=== PATIENT | female | born 1945 | race Caucasian/White ===

== ENCOUNTER 2020-04-14 08:57 | Inpatient (IN) | payer OTHER ==
[2020-04-14] MEDS ORDERED: MEPERIDINE HCL 50 MG/ML ONE (09:24)
[2020-04-14] MEDS ORDERED: COLCHICINE 0.6 MG TAB ONE (09:24)
[2020-04-14] MEDS ORDERED: ONDANSETRON 4 MG/2 ML VIAL ONE (09:25)
--- OUTSIDE RECORDS SUMMARY | 2020-04-14 09:50 | XMS REPORT | Continuity of Care Document ---
:[address] [facility] t Address [address] [place] [address] Care Team Providers Name Role Phone Yonas Vincent MD Attending Clinician Problems This patient has no known problems. Allergies, Adverse Reactions, Alerts This patient has no known allergies or adverse reactions. Medications This patient has no known medications. Procedures This patient has no known procedures. Encounters Start End Encounter Admission Attending Care Care Encounter Source Date/Time Date/Time Type Type Clinicians Facility Department ID 2020-04-06 2020-04-06 Telephone CONNIE Vincent [id number] 00:00:00 00:00:00 Oumou Branham [facility] [id number] IAJAN[facility] [id number] [place] [id number] [facility] Results This patient has no known results.
--- OUTSIDE RECORDS SUMMARY | 2020-04-14 09:52 | XMS REPORT | Summary of Care ---
:1945 Author Organization [facility] - Health Address [address] [place] [id number] Care Team Providers Name Role Phone John Tapia MD Primary Care Provider [phone] Reason for Visit Reason Comments Transition Of Care Encounter Details Date Type Department Care Team Description 04/05/[address] [facility] [address] [address] Allergies Active Allergy Reactions Severity Noted Date Comments Codeine Nausea and/or Vomiting 03/27/2020 documented as of this encounter (statuses as of 04/05/2020) Medications Medication Sig Dispensed Refills Start Date End Date Status fluticasone Inhale 1 Puff as 0 A ctive propion/salmeterol needed. As needed (ADVAIR DISKUS INHALE) for asthma/bronchitis ALBUTEROL INHALE Inhale 1 Puff. As 0 Active needed for asthma/bronchitis pantoprazole 40 mg EC Take 1 tablet by 30 tablet 1 04/02/2020 Active tabletIndications: mouth daily. Anemia, unspecified type sennosides 8.6 mg Take 1 tablet by 30 tablet 1 04/02/2020 Active tabletIndications: mouth daily. Anemia, unspecified type ferrous sulfate (IRON) Take 1 capsule by 60 capsule 1 04/02/20 20 Active 325 mg (65 mg iron) SR mouth every other capsuleIndications: day. Anemia, unspecified type documented as of this encounter (statuses as of 04/05/2020) Active Problems Problem Noted Date GIB (gastrointestinal bleeding) 03/28/2020 Gastrointestinal hemorrhage, unspecified gastrointesti nal hemorrhage type 03/27/2020 Overview: Added automatically from request for marnie akins [id number] documented as of this encounter (statuses as of 04/05/2020) Social History Tobacco Use Types Packs/Day Years Used Date Current Every Day Smoker 0.25 50 Alcohol Use Drinks/Week oz/Week Comments Not Asked socially Sex Assigned at Date Recorded Not on file COVID-19 Exposure Response Date Recorded In the last month, have you been in contact with No / Unsure 03/27/2020 11:17 PM CDT someone who was confirmed or suspected to have Coronavirus / COVID-19? documented as of this encounter Last Filed Vital Signs Not on filedocumented in this encounter Miscellaneous Notes Telephone Encounter - Dk Noble RN - 04/05/2020 2:29 PM [facility] needs progress notes. Progress notes faxed to [facility] as requested. elephone Encounter - Dk Noble RN - 04/05/2020 2:08 PM CDT Called [facility]. Referral for HH declined due to they do not accept patient insurance[facility] Referral faxed to [facility]. elephone Encounter - Dk Noble RN - 04/05/2020 9:13 AM CDT TRANSITIONAL CARE MANAGEMENT ASSESSMENT 04/05/2020 Kendal Singh [id number] Kendal Singh is a 74 year old /White female was admitted on 03/27/[address] She was discharged on 04/02/20 with discharge disposition of HR- Routine Discharge. 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 Advised to contact PCP.) Discharge Instructions Do you understand your at-home instructions?: Yes(No questions at this time.) Medications Have you filled your prescriptions and do you have them in your home? : Yes Do you know how to take your medications?: Yes(No questions.) Can you provide me with the names or descriptions of any sjbl-mca-oulaasa or supplements you are currently taking?: Patient declined Supplies Did you receive applicable home medical supplies/equipment?: N/A Follow Up Appointment Has a follow up appointment been scheduled?: No May I assist with scheduling this appointment?: Patient has outside PCP(Pt states she will call to schedule.) Do you have any questions about your follow up appointments?: No Are you able to get to your appointment? Who will be taking you?: Yes(Family member or friend) Home Health Assistance Has the home health nurse contacted you since you've been home?: No [employer] Interventions:: Contacted HH agency(Referral never received. Resent referral.) Survey - Recognition Is there anything you would like to share about your recent hospitalization, or anyone you would like to recognize?: No Do you have any suggestions for improvement?: No Do you have any other questions or concerns at this time?: No Future Appointments: Pending. COVID-19 It is noted in the discharge summary that you were tested for COVID 19. Did your physician discuss the results of this test with you? Yes Do you have any questions about your test results? No What instructions did you receive from your physician? Prevention Do you have any questions about your discharge instructions related to COVID 19? No Should you have any other questions or concerns, you may call the [facility] at [phone] or toll free [phone] for further guidance. documented in this encounter Plan of Treatment Health Maintenance Due Date Last Done Comments HEPATITIS C (HCV) SCREEN 1945 DTaP,Tdap,and Td Vaccines (1 - Tdap) 1964 Breast Cancer Screening (MAMMOGRAM) 1985 COLON CANCER SCREENING ANNUAL FIT/FOBT 1995 COLON CANCER SCREENING FIT DNA EVERY 3 YEARS 1995 COLON CANCER SCREENING SIGMOIDOSCOPY EVERY 5 YEARS 1995 Zoster Recombinant Vaccine (SHINGRIX) (1 of 2) 1995 LUNG CANCER SCREEN: Recommended for age 55-80 with 30 2000 + pack year history Medicare Wellness Visit 2010 Osteoporosis Screening 2010 PNEUMOCOCCAL VACCINES 65+ (1 of 1 - PPSV23) 2010 INFLUENZA VACCINE (#1) 2020 Depression Screening 03/30/2021 03/30/2020 COLONOSCOPY 03/30/2030 03/30/2020 Colorectal Cancer Screening 03/30/2030 documented as of this encounter Results Not on filedocumented in this encounter Insurance Payer Benefit Plan Subscriber ID Effective Phone Address Typ e / Group Dates ILIA MORILLO [id number] 2014-Pr [phone] [employer] re Adv PLUS/SELECTCA PLUS/SELECTCA esent [phone] [place] [address] [facility] [id number] 2020-Pres Medica re Adv [place] PL[place] PL[place] ent HMO/POS CHOICE documented as of this encounter
--- OUTSIDE RECORDS SUMMARY | 2020-04-14 09:52 | XMS REPORT | Summary of Care ---
:1945 Author Organization [facility] Address [address] [place] [id number] Care Team Providers Name Role Phone Pcp, Patient Does Not Have A Primary Care Provider +[id number] 0-0000 Dennise Osorio MD Primary Care Provider Reason for Referral (Routine) Status Reason Specialty Diagnoses / Referred By Referred To Procedures Contact Contact New Request IM-HEMATOLOGY & Diagnoses Anemia, unspecified type Oumou Vincent ONCOLOGY Procedures Discharge Follow-Up: Specialty Service IM-HEMATOLOGY & ONCOLOGY; 1 Week MD Yonas [address] [place] [address] (Routine) Status Reason Specialty Diagnoses / Referred By Referred To Procedures Contact Contact New Request IM-GASTROENTEROLO Diagnoses Anemia, unspecified type Oumou Vincent GY Procedures Discharge Follow-Up: Specialty Service IM-GASTROENTEROLOGY; 2 Weeks MD oYnas [address] [place] [address] (Routine) Status Reason Specialty Diagnoses / Referred By Referred To Procedures Contact Contact New Request Diagnoses Anemia, unspecified type Oumou Vincent E, Reg[place], Procedures Discharge Follow-up: PCP JOHN OSORIO; 3-5 Days MD John Bowden MD [id number] [place], [place] [id number] Phone: Fax: Radiology Services (STAT) Status Reason Specialty Diagnoses / Referred By Referred To Procedures Contact Contact New Request Diagnostic Diagnoses SOB (shortness of breath) Rosa Sal Simmons, Radiology Procedures Chest 1 View [address] [place] [address] Reason for Visit Reason Comments TIRED Anxiety Auth/Cert Status Reason Specialty Diagnoses / Referred By Referred To Procedures Contact Contact Emergency Medicine Diagnoses TIRED/WEAKNESS [facility] Emergency Dept [address] [place] [address] Fax: Encounter Details Date Type Department Care Team Description 03/27/2020 - Hospital Acute Care for Sal LeePeña [address] [place] [address] Gastrointestinal 04/02/2020 Encounter the Elderly (Oumou Jenkins MD [address] [facility] [id number] [place], [place] [id number] hemorrhage, unspecified 11D) Sloane Frausto MD [address] [place] [address] [phone] gastrointestinal [address] [place] hemorrhage type [place], [place] [id number] Allergies Active Allergy Reactions Severity Noted Date Comments Codeine Nausea and/or Vomiting 03/27/2020 documented as of this encounter (statuses as of 04/02/2020) Medications Medication Sig Dispensed Refills Start Date End Date Status fluticasone Inhale 1 Puff 0 Acti ve propion/salmeterol as needed. As (ADVAIR DISKUS needed for INHALE) asthma/bronch itis ALBUTEROL INHALE Inhale 1 0 Act lois Puff. As needed for asthma/bronch itis pantoprazole 40 mg Take 1 tablet 30 tablet 1 04/02/2020 Active EC by mouth tabletIndications: daily. Anemia, unspecified type sennosides 8.6 mg Take 1 tablet 30 tablet 1 04/02/2020 Active tabletIndications: by mouth Anemia, unspecified daily. type ferrous sulfate Take 1 60 capsule 1 04/02/2020 Ac tive (IRON) 325 mg (65 capsule by mg iron) SR mouth every capsuleIndications: other day. Anemia, unspecified type diclofenac TAKE 1 TABLET 60 tablet 0 12/14/2015 04/02/2020 Dis continued (VOLTAREN) 75 mg EC BY MOUTH tablet TWICE A DAY losartan 100 mg Take 100 mg 0 04/02/2020 D iscontinued tablet by mouth daily. aspirin 81 mg Take 81 mg by 0 04/02/2020 D iscontinued chewable tablet mouth daily. documented as of this encounter (statuses as of 04/02/2020) Active Problems Problem Noted Date GIB (gastrointestinal bleeding) 03/28/2020 Gastrointestinal hemorrhage, unspecified gastrointesti nal hemorrhage type 03/27/2020 Overview: Added automatically from request for marnie kains [id number] documented as of this encounter (statuses as of 04/02/2020) Social History Tobacco Use Types Packs/Day Years [...] of this encounter Last Filed Vital Signs Vital Sign Reading Time Taken Comments Blood Pressure 163/79 04/02/2020 11:59 AM CDT Pulse 91 04/02/2020 11:59 AM CDT Temperature 36.5 C (97.7 F) 04/02/2020 11:59 AM CDT Respiratory Rate 18 04/02/2020 11:59 AM CDT Oxygen Saturation 97% 04/02/2020 11:59 AM CDT Inhaled Oxygen Concentration - - Weight 91 kg (200 lb 9.6 oz) 03/30/2020 5:00 AM CDT Height 162.6 cm (5' 4") 03/28/2020 4:40 AM CDT Body Mass Index 34.43 03/28/2020 4:40 AM CDT documented in this encounter Discharge Summaries Eusebio Nair MD - 04/02/2020 1:21 PM CDT SHA Team Discharge Summary Date of Service: 04/02/2020 ADMIT DATE: 03/27/2020 DISCHARGE DATE: 04/02/2020 ATTENDING MD: Dr. Oumou Vincent RESIDENT MD: Eusebio Nair PCP: Dr. John Osorio REASON FOR ADMISSION Symptomatic anemia FINAL DIAGNOSIS: (the reason, after study, for admitting the patient to the hospital) Acute on ChronicAnemia;Hx ofiron deficiency anemia and NSAID abuse SECONDARY DIAGNOSIS: (any diagnosis that, on this admission, required clinical evaluation, therapeutic treatment, diagnostic procedures, extended hospital stay, or additional nursing care/monitoring) OA ESTEBAN vs CKD; improved Diverticuloses Internal Hemorrhoids Thrombocytopenia H/o HTN Asthma CONSULTING SERVICES: Orders Placed This Encounter CONSULT GASTROENTEROLOGY Consult Adult Physical Therapy Consult Adult Occupational Therapy Discharge Follow-up: PCP JOHN OSORIO; 3-5 Days PROCEDURES: EGD and Colonoscopy SIGNIFICANT LAB/X-RAYS: Lab results: CBC BMP PT/INR WBC (10*3/L) Date Value 04/02/2020 4.90 NA (mmol/L) Date Value 04/01/2020 138 No results found for: PT RBC (10*6/L) Date Value 04/02/2020 3.42 (L) K (mmol/L) Date Value 04/01/2020 4.0 INR (no units) Date Value 03/28/2020 1.1 PLT (10*3/L) Date Value 04/02/2020 75 (L) CALCIUM (mg/dL) Date Value 04/01/2020 8.7 HGB (g/dL) Date Value 04/02/2020 7.2 (L) CL (mmol/L) Date Value 04/01/2020 108 aPTT HCT (%) Date Value 04/02/2020 25.0 (L) BUN (mg/dL) Date Value 04/01/2020 14 APTT Patient (Seconds) Date Value 03/28/2020 20 (L) CREATININE (mg/dL) Date Value 04/01/2020 0.80 GLUCOSE (mg/dL) Date Value 04/01/2020 106 CO2 TOTAL (mmol/L) Date Value 04/01/2020 24 X-ray results: Chest 1 View Result Date: 03/28/2020 Findings and Impression: Suboptimal inspiratory volumes resulting in bronchovascular crowding and scattered subsegmental atelectasis especially in the lung bases. Superimposed infection in this regionwould be difficult to exclude. Correlate clinically. No definite focal consolidation identified. No p leural effusion or pneumothorax. Multiple punctate densities projecting over the right chest and right adnexal region are either external to the patient or within the soft tissues. Correlate with patient history. Heart size is normal to mildly enlarged. No acute osseous abnormality Radiology study indicated for follow-up? No HOSPITAL COURSE: Kendal Singh is a 74 y/o female with hx of asthma, HTN, OA (on chronic NSAIDS) admitted for symptomatic anemia suspected 2/2 UGIB.Patient transfused with PRBCs to keep Hgb > 7. Patient found tohave antral erosions, duodenal polyps on EGD, 5 mm ascending colon polyp/ diverticuloses/ internal hemorrhoids on colonoscopy. Biopsies were obtained. Patient was further managedwith IV iron and monitored for melena/ Hgb.Pt asymptomatic at discharge with stable Hgb, without melena. ITEMS FOR FOLLOW UP PROVIDER: (including pending labs/cultures/studies, anticipated problems, etc.) Pt advised to follow up PCP in 3-5 days. Follow up with CBC to assess Hgb. Encourage to adhere to a high fiber diet. Patient is to do sitz baths as needed for hemorrhoids. Pt advised to discontinue Aspirin 81 mg and diclofenac (Voltaren) 75 mg and all forms of NSAIDs including Ibuprofen and naproxen. We have held blood pressure medications due to bleeding. Discuss when patient should resume medications. Ensure patient is taking iron supplementation every other day. Please discuss referral to hematology/ oncology as patient has pancytopenia during admission. Pt advised to follow up with gastroenterology in 2-3 weeks. Follow up for anemia. Follow with colorectal surgery PRN for internal hemorrhoids. Follow up with OP capsule endoscopy if Hgb worsens or fails to improve. Consider repeat colonoscopy in 6-8 weeks in [place] pending improvement in thrombocytopenia. FUNCTIONAL STATUS: fully ambulatory DISCHARGE CONDITION: good COGNITIVE STATUS: cognitively intact DIET: regular ACTIVITY: As tolerated DISCHARGE MEDICATIONS: Current Discharge Medication List START taking these medications Details Iron 325 mg Take 325 mg by mouth every other day. Qty: 60 capsule, Refills: 1 Start date: 04/02/2020 Associated Diagnoses: Anemia, unspecified type pantoprazole (PROTONIX) 40 mg Take 40 mg by mouth daily. Qty: 30 tablet, Refills: 1 Start date: 04/02/2020 Associated Diagnoses: Anemia, unspecified type sennosides (SENOKOT) 8.6 mg Take 8.6 mg by mouth daily. Qty: 30 tablet, Refills: 1 Start date: 04/02/2020 Associated Diagnoses: Anemia, unspecified type CONTINUE these medications which have NOT CHANGED Details ALBUTEROL INHALE 1 Puff Inhale 1 Puff. As needed for asthma/bronchitis fluticasone propion/salmeterol (ADVAIR DISKUS INHALE) 1 Puff Inhale 1 Puff as needed. As needed for asthma/bronchitis STOP taking these medications aspirin 81 mg Comments: Reason for Stopping: losartan (COZAAR) 100 mg Comments: Reason for Stopping: diclofenac (VOLTAREN) 75 mg EC tablet Comments: Reason for Stopping: ANTIBIOTICS: Did this patient receive antibiotics during this admission, or is he/sh being discharged with antibiotics? No Was the patient given education on antibiotic indication, duration, and adverse effects? COUMADIN: Is the patient being discharged on coumadin? No.. WOUND CARE: none CODE STATUS: full code OXYGEN (is patient being discharged on oxygen): no CORE MEASURES: none VACCINES: 1. Pneumonia Vaccination> 65 years of age or high risk: Per RN 2. Influenza Vaccine >18 years of age: Per RN PATIENT EDUCATION PROVIDED: medications DISCHARGE: Home with home health FOLLOW-UP APPOINTMENT: PLAN FOR READMISSION: No Discharge Orders Home Health Order Order Comments: I certify that Kendal Singh is under my care and that I, or a nurse practitioner or physician's employment assistant working with me, had a [id number] encounter with this patient on: 03/29/2020. The encounter with Kendal Singh was in whole or in part, for the following medical condition(s), which is the primary reason for home health care: Gastrointestinal hemorrhage, unspecified gastrointestinal hemorrhage type. I am ordering and certify that based on my findings the following services are medically necessary home health services: Evaluation and Treatment, Home Safety Eval, Social Work Eval, Home Health Aide, Physical Therapy Eval & Treatment and Occupational Therapy Eval & Treatment Usp Services: Medication Management and Teaching PCP follow up: PATIENT DOES NOT HAVE A PCP Call lab results to: PCP My clinical findings support the need for the services listed above because: Decreased or limited mobility, ROM, weight bearing, functional status Further, I certify that my clinical findings support that this patient is homebound (i.e. absences from home require considerable and taxing effort and are for medical reasons or mormon services or infrequently or of short duration when for other reasons) because: Unable to leave home and leaving home requires a considerable and taxing effort I understand and acknowledge that this is not a valid order until it is authenticated by a medical provider who has authority within their Scope of Practice to do so. I am inputting this information in my capacity as a scribe. Eusebia Matias parcel carrier Orders CBC WITH DIFF Discharge Follow-up: PCP JOHN OSORIO; 3-5 Days To PCP: JOHN OSORIO [[id number]] Patient's Preferred Location: [facility] Discharge Disposition: Home Health not related to Admit, (ARS) When (Patients with risk for unplanned readmission score over 16 or those noted as Hospital Dependent should follow up within 7 days with PCP or primary DX specialist): 3-5 Days Risk of Unplanned Readmission:( Score greater than 16 indicates high risk) 7 Regular Diet; Texture: Regular. High fiber diet Order Comments: High fiber diet Texture Regular. Diabetic: No Discharge Condition - Discharge Condition: GOOD Discharge Activity Discharge Activity: As Tolerated Discharge Instructions Order Comments: Please follow up with your PCP in 3-5 days. Please adhere to a high fiber diet. Please do sitz baths as you need them for hemorrhoids. Please discontinue taking Aspirin 81 mg and stop taking diclofenac (Voltaren) 75 mg. Please stop taking any NSAIDs including ibuprofen, naproxen, etc. We stopped your blood pressure medications as you had bleeding. Please discuss with your PCP regarding when to restart your blood pressure medications. Please take your iron supplementation. Please discuss referral to hematology and oncology for low cell counts. Please follow up with gastroenterology in 2-3 weeks. Discharge Follow-Up: Specialty Service IM-GASTROENTEROLOGY; 2 Weeks Specialty: IM-GASTROENTEROLOGY [10] Patient's Preferred Location: [place] Discharge Disposition: Home Health not related to Admit, (ARS) When (Patients with risk for unplanned readmission score over 16 or those noted as Hospital Dependent should follow up within 7 days with PCP or primary DX specialist): 2 Weeks Risk of Unplanned Readmission:( Score greater than 16 indicates high risk) 7 VTE Pharmacological Prophylaxis Contrainidicated; not ordered during hospitalization Discharge Follow-Up: Specialty Service IM-HEMATOLOGY & ONCOLOGY; 1 Week Specialty: IM-HEMATOLOGY & ONCOLOGY [69] Patient's Preferred Location: Unknown Discharge Disposition: Home Health not related to Admit, (ARS) When (Patients with risk for unplanned readmission score over 16 or those noted as Hospital Dependent should follow up within 7 days with PCP or primary DX specialist): 1 Week Risk of Unplanned Readmission:( Score greater than 16 indicates high risk) 7 Home Health Order Order Comments: I certify that Kendal Singh is under my care and that I, or a nurse practitioner or physician's employment assistant working with me, had a [id number] encounter with this patient on: 03/29/2020. The encounter with Kendal Singh was in whole or in part, for the following medical condition(s), which is the primary reason for home health care: Gastrointestinal hemorrhage, unspecified gastrointestinal hemorrhage type. I am ordering and certify that based on my findings the following services are medically necessary home health services: Evaluation and Treatment, Home Safety Eval, Social Work Eval, Home Health Aide, Physical Therapy Eval & Treatment and Occupational Therapy Eval & Treatment Usp Services: Medication Management and Teaching PCP follow up: PATIENT DOES NOT HAVE A PCP Call lab results to: PCP My clinical findings support the need for the services listed above because: Decreased or limited mobility, ROM, weight bearing, functional status Further, I certify that my clinical findings support that this patient is homebound (i.e. absences from home require considerable and taxing effort and are for medical reasons or mormon services or infrequently or of short duration when for other reasons) because: Unable to leave home and leaving home requires a considerable and taxing effort I understand and acknowledge that this is not a valid order until it is authenticated by a medical provider who has authority within their Scope of Practice to do so. I am inputting this information in my capacity as a scribe. Eusebia Matias RN Please call [employer] services at [phone] to contact Eusebio Nair MD with any questions. Eusebio Nair M.D. Department of Internal Medicine PGY-1, Steve Team Doctor's Number: [id number] Pager: [phone] Associated attestation - Oumou Vincent MD - 04/02/2020 2:17 PM CDT I personally examined the patient and agree with Dr. Nair's progress note with the following addition(s): Kendal Singh is a 74 year old female w GI bleed EGD SHOWED ESOPHAGITIS AND GASTRITIS likely sec to NSAId use , ANEMIA AT DC ON ORAL IRON S/P TRANSFUSIONS. Please f/u CBC, ferritin and Platelt count low no offensive medication at this time . I actively participated in the decision-making process. Please see the resident's note for additional details. Oumou Bill MD Geriatric Medicine Pager [phone] documented in this encounter Discharge Instructions AttachmentsThe following attachments cannot be sent through Care Everywhere. Anemia (Uruguayan)Iron tablets, capsules, extended-release tablets (Uruguayan) Pantoprazole tablets (Uruguayan)Docusate Sodium; Senna tablets or capsules (Uruguayan)documented in this encounter Progress Notes Emily Duarte - 04/02/2020 1:25 PM CDT Care Management Discharge Disposition Note (DCDN) 5-2-1 Interventions: Disease specific education;Home visit/home health referral;Clear discharge plan;Follow-up appointments;Intensive medication reconciliation/management 5-2-1 Providers: Physician;Echo Technologist/Fiber Product Cutting Machine Operator;Nurse 5-2-1 Patient Capacity Improvements: Avoidance of adverse events/readmission;Transportation arrangements Discharge Plan for ongoing care and services: Home Health (HH);Home/Caregiver Home Is this a new referral: Yes Patient Choice completed for referred services: DME location: Other DME location: Durable Medical Equipment: Home Health location: Other Discharge location(s): Home Health location: Other Other Home Health location: [facility] [address] [facility] [address] F: [phone] Home/Caregiver address: [address] [place] [address] Patient choice completed for referred services: Discussed with patient/patients family involved in decision making: Yes Patient or family caregiver understands, and agrees with discharge plan. Community resources/referrals made or provided to patient: Resources/Referrals: Transportation: Wheelchair Van Mental Status: Alert & Oriented to Person,Place & Time Living Arrangement: Home Other living arrangement: Address of living arrangement: [address] [place], [place] [address] [address] [place] [address] Funding Resources: Medicare Replacement Nursing informed of discharge plan: Yes Name of RN informed: RN Kalli Expected discharge date: 04/01/2020 Time: Additional Information: Patient will return home same as prior living situation with home health services. Voucher #[id number], transport via [employer] van [employer] [phone] scheduled 1430 CM/SW Name & Contact number: Emily Duarte Ph. [phone] The following information has been provided to the facility noted above: reason for the patient discharge or transfer; patients physical and psychosocial status; summary of care, treatment, servicesprovided to patient; and the patient progress toward goals. Emily calhoun - 04/02/2020 1:05 PM CDTSocial Work Note 04/02/2020 1:05 PM SW LM for patient sister, Josselin, to confirm patient's address. SW attempted to reach patient's friend/neighbor Angelica, number not in service. Emily Duarte, [facility] Care Management P [phone] E [email or web address] Eusebio Weber MD - 04/01/2020 7:05 AM CDT Pedro Luis Team Progress Note Date of Service: 04/01/2020 07:05 Chief Complaint: Symptomatic anemia 24-HOUR EVENTS: SUBJECTIVE: Patient states she is feeling much better. Denies weakness, lightheadedness, CP/ SOB, no N/ V. Pt had a BM last night; states it was brown without blood. She states she is sleeping much better, about 6-7 hours last night. PHYSICAL EXAM: Vitals: 03/31/20 1856 03/31/20 1910 03/31/20 2339 04/01/20 0433 BP: (!) 165/89 (!) 171/82 (!) 159/89 (!) 153/79 BP Location: Right arm Right arm Right arm Right arm Patient Position: Other (Comment) Other (Comment) Supine Lying left side Pulse: 103 104 100 96 Resp: 24 16 16 Temp: 36.8 C (98.3 F) 37.5 C (99.5 F) 36 C (96.8 F) 37.4 C (99.3 F) TempSrc: Oral Oral Oral Oral SpO2: 95% 94% 91% 90% Weight: Height: General: no apparent distress HEENT: normal conjunctiva Lungs: clear to auscultation bilaterally Cardio: Tachy; S1, S2 normal; no murmurs, rubs or gallops Abdomen: soft; non-tender; non-distended Extremities: no edema; palpable distal pulses LABS/IMAGING - reviewed ASSESSMENT/PLAN Kendal Singh is a 74 year old female with PMH as listed above, admitted to the hospital with: Acute on Chronic Anemia; Hx of iron deficiency anemia and NSAID abuse OA ESTEBAN vs CKD; unknown baseline Cr fxn; improving Diverticuloses Internal Hemorrhoids Thrombocytopenia Patient with concern for UGIB, given heavy NSAID use andBUN/Cr > 20.No further melanotic episodes. She is still with brown stools.Patient had colonoscopy and EGD yesterday. EGD demonstrated antral erosions and 5 mm duodenal polyp. Colonoscopy demonstrated a 5 mm ascending colon polyp, divertic uloses and large internal hemorrhoids. Current Hgb 7.8. -f/u HH daily; electrolytes and monitor with telemetry - transfuse tokeep Hgb >7 - c/w PO protonix - f/u GI recs - f/u with biopsies of esophagus, H. Pylori, duodenal poly - f/u 6 minute walk test to assess CV/pulm status - C/w senokot - start PO iron supplementation H/o HTN Asthma - consider restarting home Losartan - c/w home inhalers PRN Eusebio Nair M.D. Department of Internal Medicine PGY-1, Steve Team Doctor's Number: [id number] Pager: [phone] END OF DAILY PROGRESS NOTE Hospital Course Kendal Singh is a 74 y/o female with hx of asthma, HTN, OA (on chronic NSAIDS) admitted for symptomatic anemia suspected 2/2 UGIB.Patient found to have antral erosions duodenal polyp on EGD, 5 mm ascending colon polyp/ diverticuloses/ internal hemorrhoids on colonoscopy. Awaiting biopsies, managing with iron supplementation and monitoring for melena/ Hgb level to evaluate for further management.Pt asymptomatic wtih stable Hgb, without melena. CURRENT MEDICATIONS - reviewed. Discharge Planning - regular, high fiber diet - sitz bath PRN hemorrhoid - F/U with colorectal surgery PRN for internal hemorrhoid bleeding - F/U with OP capsule endoscopy if Hgb worsens or fails to improve - will consider repeat colonoscopy in 6-8 weeks in [place] pending improvement in thombocytopenia Associated attestation - Oumou Vincent MD - 04/01/2020 2:32 PM CDT CBC WBC (10*3/L) Date Value 04/01/2020 4.26 (L) RBC (10*6/L) Date Value 04/01/2020 3.71 (L) PLT (10*3/L) Date Value 04/01/2020 81 (L) HGB (g/dL) Date Value 04/01/2020 7.8 (L) HCT (%) Date Value 04/01/2020 26.9 (L) I personally examined the patient and agree with Dr. Nair's progress note with the following addition(s): Kendal Singh is a 74 year old female improved GI bleed and has lower RBB w b/m thrombocytopenia may be contributing to bleed tendency no 80 today pending 6 min walk to decide need for O2 until anemia improved I actively participated in the decision-making process. Please see the resident's note for additional details. Oumou Bill MD Geriatric Medicine Pager [phone] Eusebio Nair MD - 03/31/2020 6:26 AM CDT Cloud Team Progress Note Date of Service: 03/31/2020 06:26 Chief Complaint: Symptomatic anemia 24-HOUR EVENTS: NAEON SUBJECTIVE: Patient states she is doing well. She denies weakness and feels back to her baseline. Denies fever, chills, N/ V/ D/ C. Patient has not had a BM since EGD and colonoscopy. She denies abdominal pain, difficulty with urinating or any bleeding. PHYSICAL EXAM: Vitals: 03/30/20 1921 03/30/20 2323 03/31/20 0350 03/31/20 0428 BP: (!) 166/85 (!) 146/66 (!) 171/83 (!) 156/79 BP Location: Right arm Right arm Right arm Right arm Patient Position: Sitting Lying left side Supine Supine Pulse: 104 98 94 95 Resp: Temp: 37.6 C (99.7 F) 37.3 C (99.1 F) 36.7 C (98 F) TempSrc: Oral Oral Oral SpO2: 95% 93% 95% Weight: Height: Intake/Output Summary (Last 24 hours) at 03/31/2020 06 Last data filed at 03/30/2020 2100 Gross per 24 hour Intake 1649 ml Output Net 1649 ml General: no apparent distress HEENT: conjunctiva are pale however more perfused than when previously examined; skin has more of pink hue Lungs: wheezes diffusely Cardio: S1, S2 normal; RRR, no murmurs, rubs or gallops Abdomen: soft; non-tender; non-distended; normoactive bowel sounds Extremities: no edema Telemetry: sinus rate 97; no overnight alarms; trend 90-100s LABS/IMAGING - reviewed Hgb (03/31): 8.2 <-- 6.6 EGD report: 1 cm whitish patch in mid esophagus. Biopsied Z-line at 43 cm Antral erosions, healing. Biopsies for H.pylori obtained 5 mm duodenal polyp, biopsied Normal D2. Colonoscopy 5 mm ascending colon polyp. No polypectomy done as she as low platelet count. Diverticuloses in descending colon, sigmoid and rectum. Large internal hemorrhoids Perianal skin tags ASSESSMENT/PLAN Kenadl Singh is a 74 year old female with PMH as listed above, admitted to the hospital with: Acute on Chronic Anemia; Hx of iron deficiency anemia and NSAID abuse OA ESTEBAN vs CKD; unknown baseline Cr fxn; improving Diverticuloses Internal Hemorrhoids Patient with concern for UGIB, given heavy NSAID use andBUN/Cr > 20.No further melanotic episodes. She is still with brown stools. Patient had colonoscopy and EGD yesterday. EGD demonstrated antral erosions and 5 mm duodenal polyp. Colonoscopy demonstrated a 5 mm ascending colon polyp, diverticu loses and large internal hemorrhoids. -f/u HH daily; electrolytes and monitor with telemetry - monitor vitals and sxs;s/p 4 units since hospitalization - transfuse to keep Hgb >7 - transition to PO protonix - f/u GI recs - f/u with biopsies of esophagus, H. Pylori, duodenal poly - IV iron dose - obtain EKG and 6 minute walk test to assess CV status - add senokot to assist with BM H/o HTN Asthma - hold home Losartan - c/w home inhalers PRN PAIN:ControlledTylenol Prophylaxis: DVT-Contraindicated, anemia Stress Ulcer:pantoprazole Code Status:addressed:Full code Eusebio Nair M.D. Department of Internal Medicine PGY-1, [facility] Team Doctor's Number: [id number] Pager: [phone] END OF DAILY PROGRESS NOTE Hospital Course Kendal Singh is a 74 y/o female with hx of asthma, HTN, OA (on chronic NSAIDS) admitted for symptomatic anemia suspected 2/2 UGIB.Patient found to have antral erosions duodenal polyp on EGD, 5 mm ascending colon polyp/ diverticuloses/ internal hemorrhoids on colonoscopy. Awaiting biopsies, managing with iron supplementation and monitoring for melena to evaluate for further management. CURRENT MEDICATIONS - reviewed. Discharge Planning - Per GI: Patient needs repeat colonoscopy in 6-8 weeks, once her platelet count improves for ascending colon polypectomy- 2 day prep. Associated attestation - Oumou Vincent MD - 03/31/2020 2:46 PM CDT I personally examined the patient and agree with Dr. Nair's progress note as written . I activelyparticipated in the decision-making process. Please see the resident's note for additional details. Oumou Bill MD Geriatric Medicine Pager [phone] Joseph Eaton DO - 03/30/2020 8:59 PM CDTPer coding query request: Acute blood loss anemia Thrombocytopenia ESTEBAN vs CKD listed b/c no baseline Cr available. Eusebio Weber MD - 03/30/2020 6:54 AM CDT Cloud Team Progress Note Date of Service: 03/30/2020 06:54 Chief Complaint: Symptomatic anemia 24-HOUR EVENTS: NAEON SUBJECTIVE: Patient states she is feeling well. She has almost finished her bowel prep. She had watery BM she thinks they are clear. Patient had some SOB last night and was given albuterol. Patient has not been lightheaded or dizzy. Denies CP, N/ C, no fever, chills. She said she slept well last night. PHYSICAL EXAM: Vitals: 03/29/20201603/30/20 0016 03/30/20 0434 03/30/20 0500 BP: (!) 160/86 (!) 155/75 (!) 147/82 BP Location: Right arm Right arm Right arm Patient Position: Sitting Supine Lying right side Pulse: 102 95 97 Resp: 14 14 15 Temp: 37.5 C (99.5 F) 36.3 C (97.3 F) 36.7 C (98 F) TempSrc: Oral Oral Oral SpO2: 95% 95% 95% Weight: 91 kg (200 lb 9.6 oz) Height: Intake/Output Summary (Last 24 hours) at 03/30/2020 0654 Last data filed at 03/30/2020 0610 Gross per 24 hour Intake 1450 ml Output Net 1450 ml General: no apparent distress Lungs: clear to auscultation bilaterally Cardio: S1, S2 normal; no murmurs, rubs or gallops Abdomen: soft; non-tender; non-distended; normoactive bowel sounds Extremities: no edema LABS/IMAGING - reviewed HGB: 6.6 <-- 7.0 ASSESSMENT/PLAN Kendal Singh is a 74 year old female with PMH as listed above, admitted to the hospital with: Acute symptomatic anemia Melena OA ESTEBAN vs CD Patient with concern for UGIB, given heavy NSAID use and BUN/Cr > 20. No further melanotic episodes. She is still with brown stools. Patient had inadequate prep for colonoscopy, with plans for repeat prep and scoping today. -f/u HH Q8H - monitor vitals and sxs;s/p 3 units since admission - transfuse to keep Hgb >7 - PPI gtt - f/u GI recs - colonoscopy today if adequate prep; f/u GI recs - f/u electrolytes H/o HTN Asthma - hold home Losartan - c/w home inhalers PRN PAIN: Controlled Tylenol Prophylaxis: DVT- Contraindicated, anemia Stress Ulcer: pantoprazole Code Status: addressed: Full code Eusebio Nair M.D. Department of Internal Medicine PGY-1, [facility] Team Doctor's Number: [id number] Pager: [phone] END OF DAILY PROGRESS NOTE Hospital Course Kendal Singh is a 74 y/o female with hx of asthma, HTN, OA (on chronic NSAIDS) admitted for symptomatic anemia suspected 2/2 UGIB. Patient had inadequate bowel preparation. Currently pending endoscopic/colonscopy evaluation. CURRENT MEDICATIONS - reviewed. Discharge Planning Associated attestation - Oumou Vincent MD - 03/30/2020 9:03 PM CDT I personally examined the patient and agree with Dr. Nair's progress note with the following addition(s): she had scopes today as follows : EGD report: 1 cm whitish patch in mid esophagus. Biopsied Z-line at 43 cm Antral erosions, healing. Biopsies for H.pylori obtained 5 mm duodenal polyp, biopsied Normal D2. Colonoscopy 5 mm ascending colon polyp. No polypectomy done as she as low platelet count. Diverticuloses in descending colon, sigmoid and rectum. Large internal hemorrhoids Perianal skin tags . I actively participated in the decision-making process. Please see the resident's note for additional details. Oumou Bill MD Geriatric Medicine Pager [phone] Eusebia Matias RN - 03/29/2020 11:11 AM CDTCare Management Social Functional Assessment Patient Name: Kendal Singh Age: [age] year old Sex: female Previous admit date: N/A Current diagnosis and co-morbidities: GIB (gastrointestinal bleeding) Readmission Questions: Was patient discharged from any acute care hospital within the last 30 days: No Social Functional Assessment: Primary language spoken/preferred: Uruguayan Mental Status: Alert & Oriented to Person,Place & Time Information given by: Self Patient's support system: Other Name and number of support system: Josselni Rankin (sister) [phone]; Angelica Hancock (neighbor/friend) [phone] Primary Telecommunications Field Technician: Self MPOA: No Living Arrangement: Home Address of living arrangement : [address] [place] [id number] Persons living in home: Self Barriers to returning home: Declining function;Lack of 12/03 supervision Functional status-baseline personal care: Requires minimal to moderate assistance Baseline functional status- driving: Dependent Baseline functional status- grocery shopping: Requires minimal to moderate assistance Functional status-baseline housekeeping: Independent Functional status-baseline meal prep: Independent Current functional status same as prior: Yes Do you have a PCP?: Yes Name of PCP: [facility] Agency: No Provider Services: No DME Company: No Equipment: Shower Chair;Rollator Hemodialysis: No Community resources utilized: SSA/SSI/Medicaid;Meals on Wheels;Other Other community resources utilized: Meals delivered once a week Funding Resources: Medicare Replacement Medicare Replacement name and information: [employer] [place] [employer] Prescription coverage plan: Other Other prescription coverage plan: [employer] Pharmacy where meds are filled: Other Other pharmacy: [facility] in [place] Anticipated services prior to disharge: Continue Medical Eval;EGD;Other Other anticipated service prior to discharge: colonoscopy pending for today Expected mode of discharge transportation: Wheelchair van Other expected mode of transportation: requested transportation assistance Additional Recommendations for DC: Patient reports living alone but has assistance from friends/family who visit her frequently and a neighbor who "checks in on her" daily. Patient did report that it is difficult to secure transportation to and from doctor appointments but reports that the service that provides her meals once a week is also able to provide transportation if she adds this on to her service. Patient is interested in adding this. Chris would like transportation to her home at [place] since she is unsure if her friends will be able to drive to [place] to pick her up. Additional info required for discharge planning: Pending medical evaluation;Pending P/T O/T recommendation Recommended discharge plan: Home;Home with new Home Health SFA Complete: Social Functional Assessment complete: Yes Alcohol Use Screening (AUDIT-C) How often do you have a drink containing alcohol?: 2 to 4 times a month SCORE: 2 How many drinks containing alcohol do you have on a typical day when you are drinking?: 1 or 2 drinks How often do you have six or more drinks on one occasion?: Never Total Score (AUDIT-C): 2 Did patient elect to have resources provided: No Role of Care Management explained. Any issues or concerns with obtaining/affording your medications at home: Yes. If yes, why? Don't have the resources (money, transportation) to get the medications Are you or your support system able to spanish moss picker medications at discharge: No. Describe: patient has limited transportation but does have friends who are able to assist Eusebia Matias RN, BSN Plant Engineering Supervisor [facility] Care Management Office: [phone] [email or web address] Joseph Gottlieb DO - 03/29/2020 7:08 AM CDT [facility] Team Progress Note Date of Service: 03/29/2020 07:08 Chief Complaint: symptomatic anemia 24-HOUR EVENTS SUBJECTIVE: Patient reports she has almost completed prep, but is still having some "brown- watery" stool. Deniesfevers, chills, cp, sob, n/v or abd pain at this time. PHYSICAL EXAM: Vitals: 03/29/20 0038 03/29/20 0039 03/29/20 0041 03/29/20 0433 BP: (!) 154/78 (!) 146/74 (!) 147/70 (!) 153/74 BP Location: Left arm Left arm Left arm Right arm Patient Position: Sitting Sitting Supine Supine Pulse: 96 96 95 94 Resp: 16 20 18 Temp: 36.2 C (97.2 F) 36.5 C (97.7 F) TempSrc: Oral Oral SpO2: 93% 91% 96% Weight: Height: Intake/Output Summary (Last 24 hours) at 03/29/2020 0708 Last data filed at 03/29/2020 0551 Gross per 24 hour Intake 3938 ml Output 900 ml Net 3038 ml General: awake, and alert. NAD Lungs: No respiratory distress Cardio: RRR Abdomen: soft, but distended, nontender Extremities: no edema LABS/IMAGING - reviewed ASSESSMENT/PLAN Kendla Singh is a 74 year old female with PMH as listed above, admitted to the hospital with: Acute symptomatic anemia Melena OA ESTEBAN vs CD Patient with concern for UGIB, given heavy NSAID use and BUN/Cr > 20. No further melanotic episodes. She is still with brown stools. Will likely have to redo her prep, with plans for scoping likely tomorrow. - f/u HH Q8H , keep Hgb >7 - monitor vitals and sxs; s/p 1 U PRBC in [facility] ED - PPI gtt - f/u GI recs H/o HTN Asthma - hold home Losartan - c/w home inhalers PRN PAIN: Controlled Tylenol Prophylaxis: DVT- Contraindicated, anemia Stress Ulcer: pantoprazole Code Status: addressed: Full code Joseph Eaton, DO Internal Medicine, PGY-2 END OF DAILY PROGRESS NOTE Hospital Course Kendal Singh is a 74 y/o female with hx of asthma, HTN, OA (on chronic NSAIDS) admitted for symptomatic anemia suspected 2/2 UGIB. Currently pending endoscopic/colonscopy evaluation. CURRENT MEDICATIONS - reviewed. Associated attestation - Oumou Vincent MD - 03/30/2020 2:53 PM CDTI personally examined the patient and agree with Dr. Eaton's progress note as written . I activelyparticipated in the decision-making process. Please see the resident's note for additional details. Oumou Bill MD Geriatric Medicine Pager [phone] Eusebio Nair MD - 03/28/2020 7:29 AM CDT Cloud Team Progress Note Date of Service: 03/28/2020 07:29 Chief Complaint: weakness 24-HOUR EVENTS: SUBJECTIVE: Patient states she is doing okay. She feels a little better after her blood transfusion. No SOB/ lightheadedness/ palpitations. No N/ V. Has not had a BM since Sunday and that is when she noticed it was black (2x). She is currently on 2L NC and not on home oxygen. Patient has had this occur in the past, states a couple of times last year PHYSICAL EXAM: Vitals: 03/28/20 0619 03/28/20 0635 03/28/20 0650 03/28/20 0720 BP: 127/60 105/55 132/56 133/53 Pulse: 87 85 82 86 Resp: Temp: 35.9 C (96.6 F) 36.8 C (98.3 F) TempSrc: Oral Oral SpO2: 100% 100% 100% 100% Weight: Height: AF, HDS Intake/Output Summary (Last 24 hours) at 03/28/2020 0729 Last data filed at 03/28/2020 0637 Gross per 24 hour Intake 2126 ml Output Net 2126 ml General: no apparent distress HEENT: pale conjunctiva Lungs: clear to auscultation bilaterally Cardio: S1, S2 normal; no murmurs, rubs or gallops Abdomen: soft; non-tender; non-distended; normoactive bowel sounds Extremities: no edema LABS/IMAGING - reviewed Hgb: 4.8 ASSESSMENT/PLAN Kendal Singh is a 74 year old female with PMH as listed above, admitted to the hospital with: Acute symptomatic microcytic anemia Melena Osteoarthritis ESTEBAN vs CKD Likely UGIB 2/2 heavy NSAIDs use. GI malignancy needs to be ruled out given age. Elevated Cr could be 2/2 heavy NSAIDs use too. - f/u HH Q8H , keep Hgb >7 - monitor vitals and sxs; s/p 1 U PRBC in [facility] - PPI gtt - consult GI - avoid NSAIDs - f/u urine studies, BMP H/o HTN Asthma In the setting of bleeding, symptomatic SOB on exertion - hold losartan - c/w home inhalers PRN Pain ControlledTylenol Prophylaxis: DVT- Contraindicated: Cranial/GI Bleeding or other Hemorrhage present Stress Ulcer: pantoprazole Code Status: addressed: Full Shermeen Ali, M.D. Department of Internal Medicine PGY-1, [facility] Team Doctor's Number: [id number] Pager: [phone] END OF DAILY PROGRESS NOTE Hospital Course Kendal Singh is 74 year-old F with PMHx as below pertinent for osteoarthritis( on NSAIDs) presenting from [facility] ED with symptomatic anemia. GI has been consulted to assist with management. CURRENT MEDICATIONS - reviewed. Discharge Recommendations Associated attestation - Michele Moe MD - 03/29/2020 12:23 PM CDTAfter discussion with geriatric team, I personally saw and examined this patient with team on 03/28/2020. I agree with Dr. Nair's assessment and plan as written.. I actively participated in decision making plan. documented in this encounter H&P Notes Evaristo Love DO - 03/30/2020 12:54 PM CDT Endoscopy H & P Age: [age] year old Sex: female ASA Class: III Indication: iron deficiency anemia Patient comes with iron deficiency anemia and melena 2 weeks ago for few days, not anymore. Will proceed with EGD and colonoscopy. No bleeding per rectum, no hematemesis, no coffee ground emesis, no change in caliber of stools, no loss of appetite, no loss of weight. Antiplatelets or anticoagulants- Aspirin, last dose 4 days ago Abdominal surgeries or ventral hernias-Hysterectomy HB-6.6 , INR-1.1, Platelets- 66 Past Medical History: Diagnosis Date Asthma HTN (hypertension) Osteoarthritis Family history of Colon Cancer/Polyps: no Current Facility-Administered Medications Medication Dose Route Frequency Last Rate Last Dose ondansetron (ZOFRAN (PF)) injection 4 mg 4 mg Slow IV Push Q6HPRN peg-electrolyte soln (GOLYTELY) 236-22.74-6.74 -5.86 gram solution 2,000 mL 2,000 mL Oral PRE-PROCEDURE ONCE peg-electrolyte soln (GOLYTELY) 236-22.74-6.74 -5.86 gram solution 2,000 mL 2,000 mL Oral PRE-PROCEDURE ONCE acetaminophen (TYLENOL) tablet 650 mg 650 mg Oral Q6HPRN albuterol (PROVENTIL) 2.5 mg /3 mL (0.083 %) nebulizer solution 2.5 mg 2.5 mg Inhalation Q4HPRN 2.5 mg at 03/29/20 2250 Fluticasone-Salmeterol (ADVAIR) 100-50 mcg/dose inhalation disk 1 Puff 1 Puff Inhalation [id number] melatonin (MELATIN) tablet 3 mg 3 mg Oral QHS 3 mg at 03/29/20 2131 pantoprazole (PROTONIX) 80 mg in NaCl 0.9% (NS) 500 mL infusion 8 mg/hr IV Infusion CONTINUOUS 50 mL/hr at 03/30/20 0253 8 mg/hr at 03/30/20 0253 Allergies Allergen Reactions Codeine Nausea and/or Vomiting Social History Socioeconomic History Marital status: Spouse name: Not on file Number of children: Not on file Years of education: Not on file Highest education level: Not on file Occupational History Not on file Social Needs Financial resource strain: Not on file Food insecurity Worry: Not on file Inability: Not on file Transportation needs Medical: Not on file Non-medical: Not on file Tobacco Use Smoking status: Current Every Day Smoker Packs/day: 0.25 Years: 50.00 Pack years: 12.50 Substance and Sexual Activity Alcohol use: Not on file Comment: socially Drug use: Never Sexual activity: Not on file Lifestyle Physical activity Days per week: Not on file Minutes per session: Not on file Stress: Not on file Relationships Social connections Talks on phone: Not on file Gets together: Not on file Attends mormon service: Not on file Active member of club or organization: Not on file Attends meetings of clubs or organizations: Not on file Relationship status: Not on file Intimate partner violence Fear of current or ex partner: Not on file Emotionally abused: Not on file Physically abused: Not on file Forced sexual activity: Not on file Other Topics Concern Not on file Social History Narrative Not on file Mental Status: alert, oriented x3 Chest: clear to auscultation Cardiovascular: regular rate and rythmn Abdomen: bowel sounds present Spleen Tip: non-palpable Hepatomegaly: no Mass: not present Tenderness: no Impression and Plan: Patient comes with iron deficiency anemia. Will proceed with EGD and colonoscopy Education provided to the patient about the procedure. Risks including reaction to medication, aspiration, infection, bleeding, perforation, injury to vessel or organs that may require surgical intervention and were explained and patient voiced understanding and consented for procedure. Dr. John Kim PGY-5 Division of Gastroenterology and Hepatology Pager: [phone] Donny Burgess MBBS - 03/28/2020 4:57 AM CDT MEDICINE SHA H&Jenna PCP: PATIENT DOES NOT HAVE A PCP Date of Service: 03/28/2020 CHIEF COMPLAINT: weakness History of Present Illness Kendal Singh is 74 year-old F with PMHx as below pertinent for osteoarthritis( on NSAIDs) presenting from [facility] ED with symptomatic anemia. Patient reports 1 months Hx of progressive weakness, dyspnea on minimal exertion, " feeling foggy" ,1 week ago she started to have dark black stool, formed, doesn't smell, denies , 1 BM/1-2 days. Denies N,V, palpitations, CP, legs swelling, wheezing, loss of consciousness, dizziness. Patient reportstaking on average 6 pills of voltaren daily for the last 3 years, drinks 1-2 drinks weekly. Denies Hx of GIB, she underwent colonoscopy one 12 years ago which was "non-conclusive" . Denies FHx of GI cancers. Patient reports that she decided to start taking ASA by her self more than 20 years ago. Patient reports no asthma attacks since long time ago. PAST MEDICAL HISTORY Past Medical History: Diagnosis Date Asthma HTN (hypertension) Osteoarthritis Past Surgical History: Procedure Laterality Date HYSTERECTOMY Family History Problem Relation Age of Onset Heart Mother Other - see comments Father ALLERGIES Allergies Allergen Reactions Codeine Nausea and/or Vomiting MEDICATIONS No current facility-administered medications on file prior to encounter. Current Outpatient Medications on File Prior to Encounter Medication Sig Dispense Refill ALBUTEROL INHALE Inhale 1 Puff. As needed for asthma/bronchitis aspirin 81 mg chewable tablet Take 81 mg by mouth daily. fluticasone propion/salmeterol (ADVAIR DISKUS INHALE) Inhale 1 Puff as needed. As needed for asthma/bronchitis losartan 100 mg tablet Take 100 mg by mouth daily. diclofenac (VOLTAREN) 75 mg EC tablet TAKE 1 TABLET BY MOUTH TWICE A DAY 60 tablet 0 SOCIAL HISTORY Social History Socioeconomic History Marital status: Spouse name: Not on file Number of children: Not on file Years of education: Not on file Highest education level: Not on file Occupational History Not on file Social Needs Financial resource strain: Not on file Food insecurity Worry: Not on file Inability: Not on file Transportation needs Medical: Not on file Non-medical: Not on file Tobacco Use Smoking status: Current Every Day Smoker Packs/day: 0.25 Years: 50.00 Pack years: 12.50 Substance and Sexual Activity Alcohol use: Not on file Comment: socially Drug use: Never Sexual activity: Not on file Lifestyle Physical activity Days per week: Not on file Minutes per session: Not on file Stress: Not on file Relationships Social connections Talks on phone: Not on file Gets together: Not on file Attends mormon service: Not on file Active member of club or organization: Not on file Attends meetings of clubs or organizations: Not on file Relationship status: Not on file Intimate partner violence Fear of current or ex partner: Not on file Emotionally abused: Not on file Physically abused: Not on file Forced sexual activity: Not on file Other Topics Concern Not on file Social History Narrative Not on file REVIEW OF SYSTEMS (-)=Negative,(+)=Positive General: (+) fatigue, (-) fever, (-) chills, (-) weight loss, (-) weight gain Skin: (-) rash, (-) lesion HEENT: (-) headache, (-) change in hearing, (-) change in vision, (-) nasal discharge, (-) sore throat Neck: (-) pain, (-) difficulty swallowing Heme: (-) bleeding disorder Resp: (+) dyspnea on exertion, (-) shortness of breath, (-) dyspnea on exertion Cardio: (-) chest pain, (-) palpitations, (-) syncope GI: as HPI : (-) dysuria, (-) hematuria, (-) increased frequency Endo: (-) heat intolerance, (-) diabetes, (-) cold intolerance, (-) polyuria Neuro: (-) numbness, (-) tingling, (-) weakness Back: (-) pain, (-)spasms RAFFAELE: (+) joint pain Psych: (-) anxiety, (-) depression, (-) psychiatric disorder PHYSICAL EXAMINATION Vitals: 03/28/20 0230 03/28/20 0253 03/28/20 0427 03/28/20 0440 BP: 129/56 121/60 127/60 Pulse: 98 99 91 Resp: Temp: 36.6 C (97.8 F) TempSrc: Oral SpO2: 100% 99% 100% Weight: 90 kg (198 lb 6.4 oz) Height: 1.626 m (5' 4") General: alert and oriented x 4 (person, place, date/time and situation); no apparent distress HEENT: pupils equal, round, reactive to light; extraocular movements intact; oropharynx clear; moistmucous membranes Neck: supple, no lymphadenopathy, no bruits, no JVD Lungs: clear to auscultation bilaterally Cardio: S1, S2 normal; no murmurs, rubs or gallops Abdomen: soft; non-tender; non-distended; normoactive bowel sounds : not examined Rectal: deferred , guaiac positive in ED Extremities: no clubbing, cyanosis, or edema Skin: no rashes Neuro: cranial nerves II through XII grossly intact; sensation grossly intact; muscle strength 5 outof 5 in all four extremities LABS - reviewed pertinent labs as below: Reviewed ASSESSMENT/PLAN Kendal Singh is a 74 year old female with PMH as listed above, admitted to the hospital with: Acute symptomatic microcytic anemia Melena Osteoarthritis ESTEBAN vs CKD H/o HTN Asthma Likely UGIB 2/2 heavy NSAIDs use. GI malignancy needs to be ruled out given age. Elevated Cr could be 2/2 heavy NSAIDs use too. - 2 large PIV - type and screen, f/u HH Q8H , keep Hgb >7 - s/p 1 U PRBC in [facility] - PPI gtt - consult GI - avoid NSAIDs - hold losartan - urine studies, F/u BMP - c/w home inhalers PRN Pain ControlledTylenol Prophylaxis: DVT- Contraindicated: Cranial/GI Bleeding or other Hemorrhage present Stress Ulcer: pantoprazole Code Status: addressed: Full Donny Burgess Internal Medicine PGY-3 [facility] Team Pager [phone] Associated attestation - Sloane Frausto MD - 03/28/2020 5:38 AM CDTI personally examined the patient on 03/28/[address] Burgess's resident H&P note aswritten. I actively participated in the decision-making process. Please see the resident's note for additional details. Sloane Frausto MD 03/28/2020 5:38 AM documented in this encounter Consult Notes Dulce Maria Lopez OT - 03/31/2020 2:58 PM CDTAssociated Order(s): CONSULT ADULT OCCUPATIONAL THERAPY I was present and participated throughout the session and agree with the documentation as written bythe student therapist on the encounter dated 03/31/2020. CRISELDA Juan/Mallika MSOT pager number: [phone] OT GENERAL EVALUATION Consult received via [employer], EMR reviewed and evaluation completed 03/31/20. Patient referred to occupational therapy for evaluation and treatment secondary to symptomatic anemia and gastrointestinal bleeding. Patient agreeable to participate in occupational therapy. Discharge Recommendations: Therapy Potential & Need: Not applicable as no further skilled acute care OT needs at this time. Patient may benefit from continued OT services to provide education on and safe use of tub-transfer bench within environment. Challenges to Home Transition: - Requires physical assistance for IADLS - No caregiver support - Increased risk of falls - Environmental barriers Equipment Recommendations: Tub transfer bench PLAN OF CARE: Discharge from OT services Precautions: Weight bearing status: NA General: PPE Utilized: Gloves and Surgical mask and Fall Bracing: N/A Current Occupational Performance and/or Treatment: Feeding: Modified independent, patient observed drinking while sitting EOB. Grooming: Modified independent washing hands following toileting UB Dressing: Modified independent to doff/don gown Tub/Shower Transfer: NT, patient reports having sponge-bathed at home sitting on toilet for past month, due to safety concerns of falling during transfer. Toilet Transfer: Modified independent using grab bars to lower and raise self from toilet. Toileting Hygiene: Modified independent with extra time for safety. Functional Mobility: Patient semi-reclined<>sit EOB and sit<>stand with modified independence. Patient demonstrates safe ambulation short distances within room to manage self-care needs. Patient/caregiver educated on: Adaptive equipment , ADL training, Compensatory techniques/adaptive strategies, Role of OT and Safety awareness Patient left semireclining in bed with call davidson in reach. Vital signs stable. Please, see full evaluation below for more detail. OT EVALUATION: 74 year old female Admit date: 03/27/2020 Date of onset: 03/27/2020 Admit Diagnosis: GIB (gastrointestinal bleeding) OT Diagnosis: None PMH: Past Medical History: Diagnosis Date Asthma HTN (hypertension) Osteoarthritis PSH: Past Surgical History: Procedure Laterality Date COLONOSCOPY N/A 03/30/2020 Surgeon: Evaristo Love DO; Location: [facility] ([facility]) [facility] Location ESOPHAGOGASTRODUODENOSCOPY N/A 03/30/2020 Surgeon: Evaristo Love DO; Location: [facility] ([facility]) OR Location HYSTERECTOMY PAIN: Before assessment: 0/10 After assessment: 0/10 Location: NA Pain Management: NA OCCUPATIONAL ROLES/HOME ENVIRONMENT: Home environment: Single story home with 2 JEY and lives alone. Patient reports having a friend who can assist her if needed. Bathroom access: Yes Bathroom setup: Combo, however patient does not use due to safety concerns about falling when getting into and out of tub. Occupation(s): Retired Function prior to admission: Household ambulation, Community ambulation, Modified independent with BADLs and Modified independent with IADLs Equipment prior to admission: uses Rollator to walk to bathroom at night, also owns Bedside commode,Rolling Walker, Shower chair , Straight Canes PERFORMANCE SKILLS/FACTORS: UE Muscle Tone: bilateral WNL UE ROM: bilateral AROM WFL UE Strength: SHAKA UE WFL Hand dominance: right Dexterity/Coordination: bilateral Fine motor skills Intact Endurance - Sitting: Good Standing: Good Sitting Balance - Static: Good Dynamic: Good Standing: Balance - Static Good Dynamic: Good Dizziness: No Skin Integrity: No breakdown noted Sensation: bilateral Intact to light touch Oral Motor: WFL Communication: Able to verbalize needs Yes Other: N/A Vision: WFL Yes Other: N/A Hearing: good; no issues reported COGNITION: Orientation: person, place, date/time and situation Follows Commands: 1-step Yes Multi-step Yes Inconsistencies No Safety Awareness/Judgment: Good PROBLEM LIST: none REHAB POTENTIAL/PROGNOSIS: good PATIENT/FAMILY GOALS: Patient is anxious to return home to her dog. TREATMENT/INTERVENTION PLAN: Discharge from OT. No further acute care OT needs PATIENT-FAMILY TEACHING Patient provided with preferred teaching of verbal and written information on Adaptive equipment , ADL training, Compensatory techniques/adaptive strategies, Role of OT and Safety awareness. Shows readiness to learn. Verbal instruction and Written material teaching provided. Individual is able to readand verbalizes understanding of teaching provided. DHIRAJ Cabrales Total Timed Treatment Codes: 15 Min Total Treatment Time: 32 Min Patient Complexity Level Moderate - An occupational therapy evaluation of moderate complexity was completed using the above tests and measures. The following information was obtained: An occupational profile and medical and therapy history, including an expanded review of medical and/or therapy records and additional review of physical, cognitive, or psychosocial history related to current functional performance, Various standardized and non-standardized assessments were used to identify at least 3-5 performance deficits related to physical, cognitive, or psychosocial skills that result in activity limitations and/or participation restrictions and Clinical decision making of moderate analytic complexity, which includes an analysis of the occupational profile, analysis of data from detailed assessment(s), and consideration of several treatment options. Patient may present with comorbidities thataffect occupational performance. Minimal to moderate modification of tasks or assistance (e.g., physical or verbal) with assessment(s) is necessary to enable patient to complete evaluation component. Travis Davies PT - 03/31/2020 1:31 PM CDT Associated Order(s): CONSULT ADULT PHYSICAL THERAPY Patient agreeable to working with physical therapy. Patient met Semi reclined in bed. PHYSICAL THERAPY EVALUATION Consult received, chart reviewed and evaluation complete this date. Patient is referred to PT for evaluation and treatment. Patient is a 74 year old female who presents to hospital for GIB (gastrointestinal bleeding). Patient is seen s/p EGD, colonoscopy on 03/30/20 . Discharge Recommendations: Therapy Needs and Potential: Patient without any skilled PT needs at this time. Challenges to Home Transition: decreased caregiver availability Equipment recommendations: straight cane ( patient states that she owns a SPC at home. ) Current Functional Status and/or Treatment:Functional mobility training, Transfer training and Gait training Bed Mobility: Supine-sit: patient provided with min assist with verbal cues with head of the bed elevated. sitting at the edge of bed : independentm . Scooting in sitting: mod independent with verbal cues. Transfers: Sit to stand: independent using no device Stand to sit: independent using no device Sit to stand from the commode: independent Stand to sit from the commode: independent Ambulation: Assisted patient with ambulation as follows: ~ 120 feet using no device and Independent. Patient with slight antalgic gait. ( patient states that she has h/o ankle issues and uses a std cane at home ) Therapeutic exercise: instructed patient in the following: ankle pumps, heel slides, long arc quads After session, patient Up in chair. Call button provided. RN notified of patient status. PLAN OF CARE: At least 2 times per week, once or twice a day (while in hospital) per patient's tolerance and medical needs. See below for complete details. Admit Date: 03/27/2020 Hospital Diagnosis:GIB (gastrointestinal bleeding) PT Diagnosis: Difficulty walking and Weakness Weight Bearing Precaution: WBAT General Precautions: PPE used:Gloves and Surgical mask, General, Fall, Bracing/Cast present or required:N/A PMH: Past Medical History: Diagnosis Date Asthma HTN (hypertension) Osteoarthritis PSH: Past Surgical History: Procedure Laterality Date COLONOSCOPY N/A 03/30/2020 Surgeon: Evaristo Love DO; Location: [facility] ([facility]) [facility] Location ESOPHAGOGASTRODUODENOSCOPY N/A 03/30/2020 Surgeon: Evaristo Love DO; Location: [facility] ([facility]) OR Location HYSTERECTOMY Prior Living Situation: lives alone with 2 steps to enter DME: Single Point Cane Prior level of Mobility: community ambulation Subjective: Patient states that she was independent prior to hospitalization. Patient states that she sleeps on mattress on the floor. Patient/Family Goals: to get better Patient/Family verbalizes understanding of condition: Yes PAIN: denies pain COMMUNICATION Primary Language: Urugu[place] Able to Verbalize needs: Yes Vision:good; no issues reported Hearing:good; no issues reported ORIENTATION/COGNITION: Oriented to: person, place, date/time and situation Awake: Yes Alert: Yes Dizzy: No Follows Commands: Yes 1-Step Yes Multi-Step Yes Inconsistent: No NEUROLOGICAL Light Touch: within functional limits bilateral LE Tone: normal BALANCE: Sitting: Static: Good Dynamic: Fair+ Standing: Static: Fair+ Dynamic: Fair+ RANGE OF MOTION: within functional limits bilateral LE, STRENGTH: 4/5 (Good), bilateral LE ENDURANCE: Fair, Room air SKIN INTEGRITY: defer to nursing notes , PROBLEM LIST: patient has no acute PT needs at this time ASSESSMENT: Patient is a 74 year old female seen secondary to the above listed diagnosis. No furtherinpatient PT needs identified at this time. Rehabilitation Potential: fair Goals: The following goals are to maximize independence and safety with functional mobility to eventually return to prior living situation and prior functional status. Defer as no PT needs. Treatment Plan: Evaluation only and Discharge from PT PATIENT EDUCATION: Patient provided with preferred teaching of verbal information on role of PT, plan of care,. Shows readiness to learn. Verbal instruction teaching provided. Individual verbalizes understanding of teaching provided. Total Time Tx Codes in Minutes: 8 min Total Treatment Time in Minutes: 23 min Travis Lyons PT, DPT Pager Number: [phone] John Braden MBBS - 03/28/2020 9:17 PM CDTAssociated Order(s): CONSULT GASTROENTEROLOGY Gastroenterology Inpatient Consult Note Date: 03/28/2020 Name: Kendal Singh : 1945 PCP: PATIENT DOES NOT HAVE A PCP Consult by: Pedro Luis team Reason for consult: symptomatic anemia HPI: Kendal Singh is a 74 year old female with pmhx of asthma, arthritis comes with dark stools x1 week and worsening of fatigue, tiredness. She is a vague historian and history was obtained from patient as well as primary team. Patient says she has been noticing black stools x 1 week and has beenexcessively tired and fatigued. She apparently takes voltaren 6 pills daily for arthritis. No hematemesis or bright red blood per rectum or maroon stools. Last colonoscopy was 12 years ago and no coloncancer. No family hx of colon cancer. Takes aspirin at home. Her HB was found to be 4 at [facility]. She was given 1 PRBC and sent to [facility] for further care. PMHx: Past Medical History: Diagnosis Date Asthma HTN (hypertension) Osteoarthritis PSurgical Hx: Past Surgical History: Procedure Laterality Date HYSTERECTOMY Family Hx: Family History Problem Relation Age of Onset Heart Mother Other - see comments Father Social Hx: Social History Socioeconomic History Marital status: Spouse name: Not on file Number of children: Not on file Years of education: Not on file Highest education level: Not on file Occupational History Not on file Social Needs Financial resource strain: Not on file Food insecurity Worry: Not on file Inability: Not on file Transportation needs Medical: Not on file Non-medical: Not on file Tobacco Use Smoking status: Current Every Day Smoker Packs/day: 0.25 Years: 50.00 Pack years: 12.50 Substance and Sexual Activity Alcohol use: Not on file Comment: socially Drug use: Never Sexual activity: Not on file Lifestyle Physical activity Days per week: Not on file Minutes per session: Not on file Stress: Not on file Relationships Social connections Talks on phone: Not on file Gets together: Not on file Attends mormon service: Not on file Active member of club or organization: Not on file Attends meetings of clubs or organizations: Not on file Relationship status: Not on file Intimate partner violence Fear of current or ex partner: Not on file Emotionally abused: Not on file Physically abused: Not on file Forced sexual activity: Not on file Other Topics Concern Not on file Social History Narrative Not on file Medications: Current Facility-Administered Medications: acetaminophen (TYLENOL) tablet 650 mg, 650 mg, Oral, Q6HPRN, oDnny Burgess MBBS albuterol (PROVENTIL) 2.5 mg /3 mL (0.083 %) nebulizer solution 2.5 mg, 2.5 mg, Inhalation, Q4HPRN, Donny Burgess MBBS bisacodyL (DULCOLAX) tablet 10 mg, 10 mg, Oral, PRE-PROCEDURE ONCE, Murillo, Milee, DO bisacodyL (DULCOLAX) tablet 10 mg, 10 mg, Oral, PRE-PROCEDURE ONCE, Murillo, Milee, DO Fluticasone-Salmeterol (ADVAIR) 100-50 mcg/dose inhalation disk 1 Puff, 1 Puff, Inhalation, [id number], Donny Burgess MBBS ondansetron (ZOFRAN (PF)) injection 4 mg, 4 mg, Slow IV Push, Q6HPRN, Moses Murillo, pantoprazole (PROTONIX) 80 mg in NaCl 0.9% (NS) 500 mL infusion, 8 mg/hr, IV Infusion, CONTINUOUS, Sal Lee FNP, Last Rate: 50 mL/hr at 03/28/202112, 8 mg/hr at 03/28/202112 peg-electrolyte soln (GOLYTELY) 236-22.74-6.74 -5.86 gram solution 2,000 mL, 2,000 mL, Oral, PRE-PROCEDURE ONCE, Moses Murillo, ROS: General: (-) fever, (-) chills, (-) weight change, (-) dizziness, (-) lightheadedness, (-) decreasedappetite, (-) fatigue Skin: (-) rash, (-) lesion HEENT: (-) headache, (-) nasal discharge, (-) sore throat, (-) vision changes Neck: (-) pain Heme: (-) bleeding disorder Resp: (-) cough, (-) shortness of breath Cardio: (-) chest pain, (-) palpitations, (-) leg edema GI: per HPI : (-) dysuria, (-) hematuria Neuro: (-) numbness, (-) tingling RAFFAELE: (-) muscle pain, (-) joint pain Psych: (-) depressed mood PE: BP 135/67 | Pulse 85 | Temp 36.4 C (97.5 F) (Axillary) | Resp 19 | Ht 1.626 m (5' 4") | Wt 90 kg (198 lb 6.4 oz) | SpO2 100% | BMI 34.06 kg/m General: Patient is comfortable and in no acute distress, alert, awake, Obese Head: normocephalic Eye: no scleral icterus, no conjunctival pallor, EOMI Neck: No rigidity, supple, trachea midline Cardiovascular: normal S1,S2, no murmur/rub/gallop. No lower extremity edema Respiratory: Chest was clear to ausculation, bilaterally. No wheezes or crackles were heard Gastrointestinal: Soft, non tender, non distended, no scars, masses or pulsation. No rebound or guarding. No hepatomegaly Skin: Normal skin turgor, no rashes, bruising, petechiae or excoriations. Neurologic: Oriented x 2-3, motor and sensory are grossly intact Psychiatric: appropriate affect and cognition. Rectal exam- brown stools Labs - reviewed Recent Results (from the past 24 hour(s)) CBC with Differential Collection Time: 03/27/20 11:16 PM Result Value Ref Range WBC 5.85 4.30 - 11.10 10*3/L RBC 2.51 (L) 3.93 - 5.25 10*6/L HGB 4.0 (LL) 11.6 - 15.0 g/dL HCT 15.6 (L) 35.7 - 45.2 % MCV 62.2 (L) 80.6 - 95.5 fL MCH 15.9 (L) 25.9 - 32.8 pg MCHC 25.6 (L) 31.6 - 35.1 g/dL RDW-SD 47.0 39.0 - 49.9 fL RDW-CV 21.6 (H) 12.0 - 15.5 % PLT 112 (L) 166 - 358 10*3/L MPV NRBC/100 WBC 1.2 0.0 - 10.0 /100 WBCs NRBC x10^3 0.07 10*3/L GRAN MAT (NEUT) % 65.0 % IMM GRAN % 0.50 % LYMPH % 24.1 % MONO % 9.2 % EOS % 1.0 % BASO % 0.2 % GRAN MAT x10^3(ANC) 3.80 1.88 - 7.09 10*3/uL IMM GRAN x10^3 0.03 0.00 - 0.06 10*3/uL LYMPH x10^3 1.41 1.32 - 3.29 10*3/uL MONO x10^3 0.54 0.33 - 0.92 10*3/uL EOS x10^3 0.06 0.03 - 0.39 10*3/uL BASO x10^3 <0.03 0.01 - 0.07 10*3/uL Basic Metabolic Panel (NA, K, CL, CO2, GLUCOSE, BUN, CREATININE, CA) Collection Time: 03/27/20 11:16 PM Result Value Ref Range NA 137 135 - 145 mmol/L K 4.1 3.5 - 5.0 mmol/L CL 106 98 - 108 mmol/L CO2 TOTAL 20 (L) 23 - 31 mmol/L AGAP 11 2 - 16 BUN 29 (H) 7 - 23 mg/dL GLUCOSE 137 (H) 70 - 110 mg/dL CREATININE 1.22 (H) 0.50 - 1.04 mg/dL CALCIUM 8.7 8.6 - 10.6 mg/dL eGFR Calculation (Non-) 43.1 mL/min/1.73m2 eGFR Calculation () 52.2 mL/min/1.73m2 Hepatic Function Panel (ALB, T.PRO, BILI T, BU/BC, ALT, AST, ALK PHOS) Collection Time: 03/27/20 11:16 PM Result Value Ref Range TOTAL BILI 0.7 0.1 - 1.1 mg/dL BILI UNCON 0.8 0.1 - 1.1 mg/dL BILI CONJ 0.0 0.0 - 0.3 mg/dL T PROTEIN 6.8 6.3 - 8.2 g/dL ALBUMIN 3.7 3.5 - 5.0 g/dL ALK PHOS 100 34 - 122 U/L ALTv 15 5 - 35 U/L AST(SGOT) 31 13 - 40 U/L Lipase Serum Collection Time: 03/27/20 11:16 PM Result Value Ref Range LIPASE 188 0 - 220 U/L Troponin I Collection Time: 03/27/20 11:16 PM Result Value Ref Range TROPONIN I <0.012 <=0.034 ng/mL COVID-19 (ID NOW RAPID TESTING) Collection Time: 03/27/20 11:25 PM Specimen: NASOPHARYNGEAL SWAB Result Value Ref Range SARS-CoV-2 Rapid ID NOW Not Detected Not Detected Urinalysis Collection Time: 03/27/20 11:34 PM Result Value Ref Range APPEARANCE Hazy (A) Clear COLOR Yellow Yellow PH 5.0 4.8 - 8.0 SP GRAVITY 1.011 1.003 - 1.030 GLU U QUAL Normal Normal BLOOD Negative Negative KETONES Negative Negative PROTEIN Negative Negative UROBILIN 2.0 mg/dL (A) Normal BILIRUBIN Negative Negative NITRITE Negative Negative LEUK SIMONE 25/uL (A) Negative RBC/HPF 1 0 - 3 HPF WBC/HPF 8 (H) 0 - 5 HPF BACTERIA Few (A) Negative MUCOUS Slight (A) Negative LPF SQ EPITH 1 HPF HYAL CAST 11 (H) <=2 LPF Type and Screen - ONCE FREDO Collection Time: 03/28/20 12:27 AM Result Value Ref Range ABO & RH O Positive IAT Negative ABORH CONFIRMATION Collection Time: 03/28/20 12:33 AM Result Value Ref Range ABO & RH O Positive Prepare Packed RBC (in units), 2 Units Collection Time: 03/28/20 1:34 AM Result Value Ref Range Cross Match Result Compatible ISBT Blood Type Code 5100 Unit Blood Type O Pos Unit Number [id number] Blood Expiration Date & Time 051916392284 Status Information Ready Product Identification Red Blood Cells Product Code [id number] Cross Match Result Compatible ISBT Blood Type Code 5100 Unit Blood Type O Pos Unit Number [id number] Blood Expiration Date & Time [id number] Status Information Issued Product Identification Red Blood Cells Product Code [id number] BASIC METABOLIC PANEL (NA, K, CL, CO2, GLUCOSE, BUN, CREATININE, CA) Collection Time: 03/28/20 5:12 AM Result Value Ref Range NA 137 135 - 145 mmol/L K 4.1 3.5 - 5.0 mmol/L CL 109 (H) 98 - 108 mmol/L CO2 TOTAL 20 (L) 23 - 31 mmol/L AGAP 8 2 - 16 BUN 32 (H) 7 - 23 mg/dL GLUCOSE 126 (H) 70 - 110 mg/dL CREATININE 1.16 (H) 0.50 - 1.04 mg/dL CALCIUM 8.3 (L) 8.6 - 10.6 mg/dL eGFR Calculation (Non-) 45.7 mL/min/1.73m2 eGFR Calculation () 55.3 mL/min/1.73m2 CBC WITHOUT DIFF Collection Time: 03/28/20 5:12 AM Result Value Ref Range WBC 4.65 4.30 - 11.10 10*3/L RBC 2.62 (L) 3.93 - 5.25 10*6/L HGB 4.8 (LL) 11.6 - 15.0 g/dL HCT 17.6 (L) 35.7 - 45.2 % MCH 18.3 (L) 25.9 - 32.8 pg MCV 67.2 (L) 80.6 - 95.5 fL MCHC 27.3 (L) 31.6 - 35.1 g/dL PLT 115 (L) 166 - 358 10*3/L MPV RDW-CV 25.0 (H) 12.0 - 15.5 % RDW-SD 58.6 (H) 39.0 - 49.9 fL NRBC x10^3 0.06 10*3/L NRBC/100 WBC 1.3 0.0 - 10.0 /100 WBCs IPF % 6.7 1.3 - 7.7 % Phosphorus Serum Collection Time: 03/28/20 5:12 AM Result Value Ref Range PHOSPHORUS 5.2 (H) 2.5 - 5.0 mg/dL Prothrombin Time / INR Collection Time: 03/28/20 5:12 AM Result Value Ref Range PROTIME PATIENT 12.5 10.1 - 12.6 Seconds INR 1.1 aPTT Collection Time: 03/28/20 5:12 AM Result Value Ref Range APTT Patient 20 (L) 26 - 36 Seconds INTACT PTH CALCIUM GROUP Collection Time: 03/28/20 5:12 AM Result Value Ref Range CALCIUM 7.9 (L) 8.6 - 10.6 mg/dL PTH-INTACT 46.5 12.0 - 88.0 pg/mL PTH-CA Interpretation FERRITIN SERUM Collection Time: 03/28/20 5:12 AM Result Value Ref Range FERRITIN 5.3 (L) 11.0 - 264.0 ng/mL Magnesium Serum Collection Time: 03/28/20 5:12 AM Result Value Ref Range MAGNESIUM 2.0 1.7 - 2.4 mg/dL Type and Screen - ONCE STAT Collection Time: 03/28/20 5:13 AM Result Value Ref Range ABO & RH O POSITIVE IAT Negative UREA NITROGEN, URINE RANDOM Collection Time: 03/28/20 6:01 AM Result Value Ref Range UREA N UR 273 mg/dL Prepare Packed RBC (in units), 1 Units Collection Time: 03/28/20 6:18 AM Result Value Ref Range Cross Match Result Compatible ISBT Blood Type Code 9500 Unit Blood Type O Neg Unit Number [id number] Blood Expiration Date & Time [id number] Status Information Issued Product Identification Red Blood Cells Product Code [id number] CREATININE, URINE RANDOM Collection Time: 03/28/20 11:35 AM Result Value Ref Range CREAT U 33.1 mg/dL IRON PANEL Collection Time: 03/28/20 11:35 AM Result Value Ref Range IRON 52 50 - 160 ug/dL TIBC 519 (H) 250 - 410 ug/dL % FE SAT 10 (L) 20 - 50 % CBC WITHOUT DIFF Collection Time: 03/28/20 11:35 AM Result Value Ref Range WBC 4.38 4.30 - 11.10 10*3/L RBC 3.05 (L) 3.93 - 5.25 10*6/L HGB 6.0 (L) 11.6 - 15.0 g/dL HCT 21.0 (L) 35.7 - 45.2 % MCH 19.7 (L) 25.9 - 32.8 pg MCV 68.9 (L) 80.6 - 95.5 fL MCHC 28.6 (L) 31.6 - 35.1 g/dL PLT 119 (L) 166 - 358 10*3/L MPV RDW-CV 23.8 (H) 12.0 - 15.5 % RDW-SD 58.9 (H) 39.0 - 49.9 fL NRBC x10^3 0.07 10*3/L NRBC/100 WBC 1.6 0.0 - 10.0 /100 WBCs IPF % 6.3 1.3 - 7.7 % Prepare Packed RBC (in units), 1 Units Collection Time: 03/28/20 3:25 PM Result Value Ref Range Cross Match Result Compatible ISBT Blood Type Code 5100 Unit Blood Type O Pos Unit Number [id number] Blood Expiration Date & Time [id number] Status Information Issued Product Identification Red Blood Cells Product Code [id number] CBC WITHOUT DIFF Collection Time: 03/28/20 9:06 PM Result Value Ref Range WBC 4.40 4.30 - 11.10 10*3/L RBC 3.32 (L) 3.93 - 5.25 10*6/L HGB 6.9 (L) 11.6 - 15.0 g/dL HCT 23.5 (L) 35.7 - 45.2 % MCH 20.8 (L) 25.9 - 32.8 pg MCV 70.8 (L) 80.6 - 95.5 fL MCHC 29.4 (L) 31.6 - 35.1 g/dL PLT 109 (L) 166 - 358 10*3/L MPV RDW-CV 24.1 (H) 12.0 - 15.5 % RDW-SD 61.0 (H) 39.0 - 49.9 fL NRBC x10^3 0.06 10*3/L NRBC/100 WBC 1.4 0.0 - 10.0 /100 WBCs IPF % 5.9 1.3 - 7.7 % Imaging - reviewed Chest 1 View Result Date: 03/28/2020 Findings and Impression: Suboptimal inspiratory volumes resulting in bronchovascular crowding and scattered subsegmental atelectasis especially in the lung bases. Superimposed infection in this regionwould be difficult to exclude. Correlate clinically. No definite focal consolidation identified. No p leural effusion or pneumothorax. Multiple punctate densities projecting over the right chest and right adnexal region are either external to the patient or within the soft tissues. Correlate with patient history. Heart size is normal to mildly enlarged. No acute osseous abnormality Endoscopy Assessment / Plan: Kendal Singh is a 74 year old female with asthma, HTN, osteoarthritis comes with symptomatic anemia: Acute vs chronic symptomatic iron deficiency anemia: We do not have baseline HB. Has low ferritin, low MCV, BUN/cr ratio >20. Rectal exam did not havemelena or bright red blood. Last colonoscopy was 12 years ago. No loss of weight. Has NSAID use Comment- includes GI causes like PUD (NSAIDs, H.pylori), Angiodysplasia, esophagitis vs AVMs in small intestines, colon cancer, hemorrhoids, angiodysplasia in colon. Recommendations: - 2 large bore PIV - fluid resuscitation and PRBC transfusion - Trend CBC q6h - Hgb > 7, plts > 50K - D/c NSAIDs - PPI: bolus, followed by drip - NPO past midnight - Notify GI fellow information specialist with any changes - 551 prep starting 400 PM. Notified primary team around 400 PM. - Iron supplementation IV using ganzoni equation - EGD and colonoscopy in AM. Patient seen and discussed with faculty, Alex Zamorano Gastroenterology & Hepatology, PGY-4 Pager [phone] Associated attestation - Alex Whitman MD - 03/28/2020 10:16 PM CDTI examined the patient on 03/28/2020 and actively participated in the decision- making process. I agreewith Dr. Kim's note as written. Please see the note for further details. documented in this encounter Nursing Notes Estela Washington, RN - 03/31/2020 7:15 PM CDTNeeds: 6 minute walk test and 1000mg IV dose of iron dextran. Oncoming RNm (Kenzie) notified. May be discharged tomorrow. EKG done this evening. documented in this encounter ED Notes Maxime Ward RN - 03/27/2020 10:47 PM CDTPatient states, "I am weak and I feel like I have tightness to my upper chest and both of my arms. This has been going on for a couple weeks." PMH: See list al Christensen FNP - 03/27/2020 10:42 PM CDT [facility] Emergency Department Note Patient Name: Kendal Singh Date of : 1945 74 year old female Treatment Room: [place] [address] Primary Care Physician: PATIENT DOES NOT HAVE A PCP Patient Escorted by: Self [9] Mode of Arrival: EMS - [facility] ([place]) [43] EMS Treatment Prior to ED Arrival: PHYSICIAN OFFICE ASSISTANT treatment: None Travel and Exposure Screening: Symptoms Does patient have any of these symptoms?: (not recorded) Exposure Screening Has patient had contact with someone with a communicable disease in the last month?: (not recorded) Diseases exposed to:: (not recorded) Is Patient ?: (not recorded) Exposure Date: (not recorded) Chief Complaint: Chief Complaint Patient presents with TIRED Anxiety History of Present Illness: Kendal Singh presents with 1 week of shortness of breath, weakness, upper back pain. Also reports that she has been having black/tarry stools and "wants to eat ice all the time." Denies chest or abdominal pain. Denies fevers. Past Medical History/Immunizations: No past medical history on file. Tetanus received in last 5 years: No Childhood immunizations: Up-to-date Allergies: Allergies Allergen Reactions Codeine Nausea and/or Vomiting Past Social History: Substance & Sexual Activity No substance use or sexual activity history on file. Past Surgical History: No past surgical history on file. Review of Systems: Review of Systems Constitutional: Positive for fatigue. Negative for chills and fever. HENT: Negative for congestion, rhinorrhea and sore throat. Eyes: Negative for pain and visual disturbance. Respiratory: Positive for shortness of breath. Negative for cough. Cardiovascular: Negative for chest pain and leg swelling. Gastrointestinal: Negative for abdominal distention, abdominal pain, diarrhea, nausea and vomiting. Genitourinary: Negative for dysuria, vaginal bleeding and difficulty urinating. Musculoskeletal: Negative for back pain. Skin: Negative for rash and wound. Neurological: Negative for seizures, weakness and headaches. Psychiatric/Behavioral: Negative for confusion and self-injury. Endocrine: Negative for polydipsia and polyphagia. Physical Exam: ED Triage Vitals Weight 03/27/202247 81.6 kg (180 lb) Actual or estimated -- Height -- BP 03/27/20 2300 128/60 Pulse 03/27/20 2300 88 Resp 03/27/208 22 Temp 03/27/202247 36.9 C (98.5 F) Temp src -- SpO2 03/27/202247 99 % Measured on -- Physical Exam Vitals signs and nursing note reviewed. Constitutional: Appearance: She is well-developed. HENT: Head: Normocephalic and atraumatic. Eyes: Conjunctiva/sclera: Conjunctivae normal. Pupils: Pupils are equal, round, and reactive to light. Neck: Musculoskeletal: Normal range of motion. Cardiovascular: Heart sounds: Normal heart sounds. No murmur. Pulmonary: Effort: Pulmonary effort is normal. No respiratory distress. Breath sounds: Normal breath sounds. Abdominal: General: Bowel sounds are normal. There is no distension. Palpations: Abdomen is soft. Genitourinary: Rectum: Normal. Guaiac result positive. Musculoskeletal: Normal range of motion. General: No deformity. Lymphadenopathy: Cervical: No cervical adenopathy. Skin: General: Skin is warm and dry. Neurological: Mental Status: She is alert and oriented to person, place, and time. Cranial Nerves: No cranial nerve deficit. Radiology: Hospital Encounter on 03/27/20 Chest 1 View Narrative PORTABLE CHEST RADIOGRAPH History: sob Comparison: None available. TECHNIQUE: AP view of the chest. Impression Findings and Impression: Suboptimal inspiratory volumes resulting in bronchovascular crowding and scattered subsegmental atelectasis especially in the lung bases. Superimposed infection in this region would be difficult to exclude. Correlate clinically. No definite focal consolidation identified. No pleural effusion or pneumothorax. Multiple punctate densities projecting over the right chest and right adnexal region are either external to the patient or within the soft tissues. Correlate with patient history. Heart size is normal to mildly enlarged. No acute osseous abnormality Lab Results (24h): Recent Results (from the past 24 hour(s)) CBC with Differential Collection Time: 03/27/20 11:16 PM Result Value Ref Range WBC 5.85 4.30 - 11.10 10*3/L RBC 2.51 (L) 3.93 - 5.25 10*6/L HGB 4.0 (LL) 11.6 - 15.0 g/dL HCT 15.6 (L) 35.7 - 45.2 % MCV 62.2 (L) 80.6 - 95.5 fL MCH 15.9 (L) 25.9 - 32.8 pg MCHC 25.6 (L) 31.6 - 35.1 g/dL RDW-SD 47.0 39.0 - 49.9 fL RDW-CV 21.6 (H) 12.0 - 15.5 % PLT 112 (L) 166 - 358 10*3/L MPV NRBC/100 WBC 1.2 0.0 - 10.0 /100 WBCs NRBC x10^3 0.07 10*3/L GRAN MAT (NEUT) % 65.0 % IMM GRAN % 0.50 % LYMPH % 24.1 % MONO % 9.2 % EOS % 1.0 % BASO % 0.2 % GRAN MAT x10^3(ANC) 3.80 1.88 - 7.09 10*3/uL IMM GRAN x10^3 0.03 0.00 - 0.06 10*3/uL LYMPH x10^3 1.41 1.32 - 3.29 10*3/uL MONO x10^3 0.54 0.33 - 0.92 10*3/uL EOS x10^3 0.06 0.03 - 0.39 10*3/uL BASO x10^3 <0.03 0.01 - 0.07 10*3/uL Basic Metabolic Panel (NA, K, CL, CO2, GLUCOSE, BUN, CREATININE, CA) Collection Time: 03/27/20 11:16 PM Result Value Ref Range NA 137 135 - 145 mmol/L K 4.1 3.5 - 5.0 mmol/L CL 106 98 - 108 mmol/L CO2 TOTAL 20 (L) 23 - 31 mmol/L AGAP 11 2 - 16 BUN 29 (H) 7 - 23 mg/dL GLUCOSE 137 (H) 70 - 110 mg/dL CREATININE 1.22 (H) 0.50 - 1.04 mg/dL CALCIUM 8.7 8.6 - 10.6 mg/dL eGFR Calculation (Non-) 43.1 mL/min/1.73m2 eGFR Calculation () 52.2 mL/min/1.73m2 Hepatic Function Panel (ALB, T.PRO, BILI T, BU/BC, ALT, AST, ALK PHOS) Collection Time: 03/27/20 11:16 PM Result Value Ref Range TOTAL BILI 0.7 0.1 - 1.1 mg/dL BILI UNCON 0.8 0.1 - 1.1 mg/dL BILI CONJ 0.0 0.0 - 0.3 mg/dL T PROTEIN 6.8 6.3 - 8.2 g/dL ALBUMIN 3.7 3.5 - 5.0 g/dL ALK PHOS 100 34 - 122 U/L ALTv 15 5 - 35 U/L AST(SGOT) 31 13 - 40 U/L Lipase Serum Collection Time: 03/27/20 11:16 PM Result Value Ref Range LIPASE 188 0 - 220 U/L Troponin I Collection Time: 03/27/20 11:16 PM Result Value Ref Range TROPONIN I <0.012 <=0.034 ng/mL COVID-19 (ID NOW RAPID TESTING) Collection Time: 03/27/20 11:25 PM Specimen: NASOPHARYNGEAL SWAB Result Value Ref Range SARS-CoV-2 Rapid ID NOW Not Detected Not Detected Urinalysis Collection Time: 03/27/20 11:34 PM Result Value Ref Range APPEARANCE Hazy (A) Clear COLOR Yellow Yellow PH 5.0 4.8 - 8.0 SP GRAVITY 1.011 1.003 - 1.030 GLU U QUAL Normal Normal BLOOD Negative Negative KETONES Negative Negative PROTEIN Negative Negative UROBILIN 2.0 mg/dL (A) Normal BILIRUBIN Negative Negative NITRITE Negative Negative LEUK SIMONE 25/uL (A) Negative RBC/HPF 1 0 - 3 HPF WBC/HPF 8 (H) 0 - 5 HPF BACTERIA Few (A) Negative MUCOUS Slight (A) Negative LPF SQ EPITH 1 HPF HYAL CAST 11 (H) <=2 LPF Type and Screen - ONCE FREDO Collection Time: 03/28/20 12:27 AM Result Value Ref Range ABO & RH O Positive EKG: Sinus tachycardia at 109 bpm SD 146, QRS 78, QTc 455 No stemi, no acute ischemic changes Orders and Treatments: Orders Placed This Encounter Procedures Chest 1 View Urinalysis CBC with Differential Basic Metabolic Panel (NA, K, CL, CO2, GLUCOSE, BUN, CREATININE, CA) Hepatic Function Panel (ALB, T.PRO, BILI T, BU/BC, ALT, AST, ALK PHOS) Lipase Serum Troponin I COVID-19 (ID NOW RAPID TESTING) Type and Screen - ONCE FREDO Orders Placed This Encounter Medications pantoprazole (PROTONIX) 80 mg in NaCl 0.9% (NS) 20 mL syringe pantoprazole (PROTONIX) 80 mg in NaCl 0.9% (NS) 500 mL infusion ED COURSE Weakness, exertional sob, Pica, black stools x 1 week. Check labs. Hgb 4.0, guaiac+ with melena. Consented for blood transfusion. Called [facility] for transfer. Accepted by [facility] for transfer MDM: Coding Diagnosis/Impression: ICD-10-CM ICD-9-CM 1. Anemia, unspecified type D64.9 285.9 2. SOB (shortness of breath) R06.02 786.05 3. Gastrointestinal hemorrhage with melena K92.1 578.1 Disposition/Condition: ED Disposition None Discharge Medications: Patient's Medications START taking these medications No medications on file CONTINUE taking these medications which have NOT CHANGED DICLOFENAC (VOLTAREN) 75 MG EC TABLET TAKE 1 TABLET BY MOUTH TWICE A DAY START taking Modified Medications as Prescribed No medications on file STOP taking these medications No medications on file Electronically signed by: POLLO Santos 03/28/2020 12:16 AM Associated attestation - Allison Addison DO - 03/28/2020 1:28 AM CDTI was personally available for consultation in the Emergency Department during this encounter and patient evaluation by Sal Lee. documented in this encounter Miscellaneous Notes Nursing Note - Jackie Pearce RN - 04/02/2020 1:24 PM CDTO2 Saturation at REST on Room Air = 96% EXERTION TEST O2 Saturation at Rest on Room Air =96 % O2 Saturation being Exerted on Room Air = 93% O2 Saturation being Exerted on 2 LPM of Oxygen = 97% esult QuickNote - John Kim MBBS - 04/01/2020 2:34 PM CDTResults noted. Patient was notified in person, as she is still in hospital are Plan - Kalli Quiros RN - 04/01/2020 1:26 PM CDT Care Plan - Teodora Argueta RN - 04/01/2020 7:30 AM CDT are Plan - Kimberley Laguerre RN - 03/30/2020 11:14 PM CDTProtonix gtt, tele are Plan - Jackie Pearce RN - 03/30/2020 5:56 PM CDT Problem: Pain Goal: Control of pain at or below patient's documented comfort goal Outcome: Progressing as expected Goal: Reduction in pain sensation Outcome: Progressing as expected Problem: Discharge Planning Goal: Absence of venous thromboembolism Outcome: Progressing as expected Goal: Adequate for discharge Outcome: Progressing as expected Goal: Effective communication Outcome: Progressing as expected ursing Note - Ari Barrera RN - 03/30/2020 10:05 AM CDTReport received from DANIEL Mejia. Pt NPO and ready for procedure. Pt placed in teletrack to come to ENDO for procedure via stretcher at 1005. are Plan - Kimberley Laguerre RN - 03/30/2020 12:45 AM CDTProtonix gtt, bowel prep for EGD and colonoscopy are Plan - Jackie Pearce RN - 03/29/2020 6:18 PM CDT Problem: Pain Goal: Control of pain at or below patient's documented comfort goal Outcome: Progressing as expected Goal: Reduction in pain sensation Outcome: Progressing as expected Problem: Discharge Planning Goal: Absence of venous thromboembolism Outcome: Progressing as expected Goal: Adequate for discharge Outcome: Progressing as expected Goal: Effective communication Outcome: Progressing as expected are Plan - Lillian Mae RN - 03/28/2020 10:23 PM CDTBowel prep, IV protonix, O2 D Nurse Note - David Atkins RN - 03/28/2020 2:54 AM CDTPatient [facility] requiring transfusion/GI. Patient agrees to transfer/admit plan and verbalized understanding of plan of care, family aware of plan Patient awake alert, oriented, resp reg unlabored, skin w/d PIVs patent, no s/s infiltration noted, No adverse reaction to medications given while in ED. Report given to [facility] personnel D Nurse Note - David Atkins RN - 03/28/2020 2:48 AM CDTReport to Lillian SANCHEZ D Nurse Note - Maxime Ward RN - 03/28/2020 2:[facility] D Nurse Note - David Atkins RN - 03/28/2020 12:57 AM [facility] ETA [phone] per Will. documented in this encounter Plan of Treatment Name Type Priority Associated Date/Time Diagnoses Transfuse Packed Transfusion Routine 03/28/2020 1:46 RBC (in units): 2 Administration AM CDT Units~As soon as possible; Infuse Each Unit Over: 2 Hours Transfuse Packed Transfusion Routine 03/28/2020 1:46 RBC (in units)~As Administration AM CDT soon as possible; Infuse Each Unit Over: 2 Hours Name Type Priority Associated Diagnoses Order S chedule EKG-12 LEAD HEART STATION Routine ONCE for 1 ROUTINE Occurrences sta rting 03/31/2020 unti l 03/31/2020 SIX MINUTE WALK PULMONARY FUNCTION Routine ONCE f or 1 LAB Occurrences sta rting 03/31/2020 unti l 03/31/2020 CBC WITH DIFF LAB Routine Anemia, unspecified Expecte d: type 04/02/2020, Exp ires: 04/02/2021 Health Maintenance Due Date Last Done Comments [...] Screening 03/30/2030 documented as of this encounter Procedures Procedure Name Priority Date/Time Associated Comments Diagnosis CBC WITH DIFF Routine 04/02/2020 Results for 1:45 AM CDT this procedure are in the results section. CBC WITHOUT DIFF Routine 04/01/2020 Results for 6:23 AM CDT this procedure are in the results section. BASIC METABOLIC PANEL (NA, K, Routine 04/01/2020 Results for CL, CO2, GLUCOSE, BUN, 6:23 AM CDT this CREATININE, CA) procedure are in the results section. MAGNESIUM Routine 04/01/2020 Results for 6:23 AM CDT this procedure are in the results section. CBC WITHOUT DIFF Routine 03/31/2020 Results for 6:39 AM CDT this procedure are in the results section. BASIC METABOLIC PANEL (NA, K, Routine 03/31/2020 Results for CL, CO2, GLUCOSE, BUN, 6:39 AM CDT this CREATININE, CA) procedure are in the results section. MAGNESIUM Routine 03/31/2020 Results for 6:39 AM CDT this procedure are in the results section. SURGICAL PATHOLOGY EXAM STAT 03/30/2020 Resu lts for 1:32 PM CDT this procedure are in the results section. COLONOSCOPY (ENDO) Routine 03/30/2020 1:13 PM CDT COLONOSCOPY Level 4 03/30/2020 Gastrointestinal (within 0-5 1:01 PM CDT hemorrhage, days) unspecified gastrointestinal hemorrhage type ESOPHAGOGASTRODUODENOSCOPY Level 4 03/30/2020 Gastrointestin al (within 0-5 1:01 PM CDT hemorrhage, days) unspecified gastrointestinal hemorrhage type EGD (ENDO) Routine 03/30/2020 12:46 PM CDT PREPARE PACKED RBC Routine 03/30/2020 Results f or 9:00 AM CDT this procedure are in the results section. PREPARE PACKED RBC Routine 03/30/2020 Anemia, unspecified Re sults for 7:43 AM CDT type this procedure are in the results section. CBC WITHOUT DIFF Routine 03/30/2020 Results for 6:03 AM CDT this procedure are in the results section. CBC WITHOUT DIFF Routine 03/29/2020 Results for 4:32 AM CDT this procedure are in the results section. BASIC METABOLIC PANEL (NA, K, Routine 03/29/2020 Results for CL, CO2, GLUCOSE, BUN, 4:32 AM CDT this CREATININE, CA) procedure are in the results section. CBC WITHOUT DIFF Routine 03/28/2020 Results for 9:06 PM CDT this procedure are in the results section. TRANSFUSE PACKED RBC Routine 03/28/2020 7:17 PM CDT PREPARE PACKED RBC Routine 03/28/2020 Results f or 3:25 PM CDT this procedure are in the results section. CREATININE, URINE RANDOM Routine 03/28/2020 Res ults for 11:35 AM CDT this procedure are in the results section. CBC WITHOUT DIFF Routine 03/28/2020 Results for 11:35 AM CDT this procedure are in the results section. IRON PANEL Routine 03/28/2020 Results for 11:35 AM CDT this procedure are in the results section. PREPARE PACKED RBC Routine 03/28/2020 Results f or 6:18 AM CDT this procedure are in the results section. UREA NITROGEN, URINE RANDOM Routine 03/28/2020 Results for 6:01 AM CDT this procedure are in the results section. HB ABO GROUPING STAT 03/28/2020 Results for 5:13 AM CDT this procedure are in the results section. ACTIVATED PARTIAL THRMPLAS BELL FREDO 03/28/2020 Results for 5:12 AM CDT this procedure are in the results section. PROTHROMBIN TIME / INR FREDO 03/28/2020 Resul ts for 5:12 AM CDT this procedure are in the results section. CBC WITHOUT DIFF Routine 03/28/2020 Results for 5:12 AM CDT this procedure are in the results section. INTACT PTH CALCIUM GROUP Routine 03/28/2020 Res ults for 5:12 AM CDT this procedure are in the results section. BASIC METABOLIC PANEL (NA, K, FREDO 03/28/2020 Results for CL, CO2, GLUCOSE, BUN, 5:12 AM CDT this CREATININE, CA) procedure are in the results section. FERRITIN SERUM Add-on 03/28/2020 Results for 5:12 AM CDT this procedure are in the results section. MAGNESIUM Routine 03/28/2020 Results for 5:12 AM CDT this procedure are in the results section. PHOSPHORUS Add-on 03/28/2020 Results for 5:12 AM CDT this procedure are in the results section. ABORH CONFIRMATION Routine 03/28/2020 Results f or 12:33 AM CDT this procedure are in the results section. HB ABO GROUPING FREDO 03/28/2020 Anemia, unspecified Resul ts for 12:27 AM CDT type this procedure are in the results section. DISCLOSURE AND CONSENT, Routine 03/28/2020 MEDICAL AND SURGICAL 12:01 AM CDT PROCEDURES URINALYSIS STAT 03/27/2020 SOB (shortness of Results fo r 11:34 PM CDT breath) this procedure are in the results section. COVID-19 (ID NOW RAPID STAT 03/27/2020 SOB (shortness of Results for TESTING) 11:25 PM CDT breath) this procedure are in the results section. XR CHEST 1 VW STAT 03/27/2020 SOB (shortness of Results f or 11:21 PM CDT breath) this procedure are in the results section. CBC WITH DIFF STAT 03/27/2020 SOB (shortness of Results f or 11:16 PM CDT breath) this procedure are in the results section. BASIC METABOLIC PANEL (NA, K, STAT 03/27/2020 SOB (shortn ess of Results for CL, CO2, GLUCOSE, BUN, 11:16 PM CDT breath) this CREATININE, CA) procedure are in the results section. HEPATIC FUNCTION PANEL (17921) STAT 03/27/2020 SOB (short ness of Results for (ALB,T.PRO,BILI 11:16 PM CDT breath) this T,BU/BC,ALT,AST,ALK PHOS) pr ocedure are in the results section. TROPONIN I STAT 03/27/2020 SOB (shortness of Results fo r 11:16 PM CDT breath) this procedure are in the results section. LIPASE STAT 03/27/2020 SOB (shortness of Results fo r 11:16 PM CDT breath) this procedure are in the results section. EKG-12 LEAD STAT 03/27/2020 11:06 PM CDT EKG-12 LEAD Routine 03/27/2020 10:51 PM CDT EMERGENCY SERVICES AGREEMENTS Routine 03/27/2020 AND AUTHORIZATIONS 12:01 AM CDT documented in this encounter Results CBC WITH DIFF (04/02/2020 1:45 AM CDT) WBC 4.90 4.30 - 11.10 [facility] 10*3/L SERVICES RBC 3.42 (L) 3.93 - 5.25 [facility] 10*6/L SERVICES HGB 7.2 (L) 11.6 - 15.0 [facility] g/dL SERVICES HCT 25.0 (L) 35.7 - 45.2 [facility] % SERVICES MCV 73.1 (L) 80.6 - 95.5 [facility] fL SERVICES MCH 21.1 (L) 25.9 - 32.8 [facility] pg SERVICES MCHC 28.8 (L) 31.6 - 35.1 [facility] g/dL SERVICES RDW-SD 63.8 (H) 39.0 - 49.9 [facility] fL SERVICES RDW-CV 24.6 (H) 12.0 - 15.5 [facility] % SERVICES PLT 75 (L) 166 - 358 [facility] 10*3/L SERVICES MPV Comment: Not [facility] Measured SERVICES IPF % 8.3 (H)Comment: 1.3 - 7.7 % [facility] Platelet count SERVICES measured by fluorescence method. NRBC/100 WBC 0.4 0.0 - 10.0 [facility] /100 WBCs SERVICES NRBC x10^3 0.02 10*3/L [facility] SERVICES GRAN MAT (NEUT) % 66.3 % [facility] SERVICES IMM GRAN % 0.60 % [facility] SERVICES LYMPH % 22.9 % [facility] SERVICES MONO % 8.2 % [facility] SERVICES EOS % 1.4 % [facility] SERVICES BASO % 0.6 % [facility] SERVICES GRAN MAT x10^3(ANC) 3.25 1.88 - 7.09 [facility] 10*3/uL SERVICES IMM GRAN x10^3 0.03 0.00 - 0.06 [facility] 10*3/uL SERVICES LYMPH x10^3 1.12 (L) 1.32 - 3.29 [facility] 10*3/uL SERVICES MONO x10^3 0.40 0.33 - 0.92 [facility] 10*3/uL SERVICES EOS x10^3 0.07 0.03 - 0.39 [facility] 10*3/uL SERVICES BASO x10^3 0.03 0.01 - 0.07 [facility] 10*3/uL SERVICES BASO STIPPLING Present (A) [facility] SCHISTOCYTES 1+ (A) [facility] Specimen Blood - LINE, VENOUS Performing Organization Address [facility] Centercode Phone Number [facility] CLIA: [id number] [place] [address] [place] [address] CBC WITHOUT DIFF (04/01/2020 6:23 AM CDT) WBC 4.26 (L) 4.30 - 11.10 [facility] 10*3/L SERVICES RBC 3.71 (L) 3.93 - 5.25 [facility] 10*6/L SERVICES HGB 7.8 (L) 11.6 - 15.0 [facility] g/dL SERVICES HCT 26.9 (L) 35.7 - 45.2 % [facility] SERVICES MCH 21.0 (L) 25.9 - 32.8 pg [facility] SERVICES MCV 72.5 (L) 80.6 - 95.5 fL [facility] SERVICES MCHC 29.0 (L) 31.6 - 35.1 [facility] g/dL SERVICES PLT 81 (L) 166 - 358 [facility] 10*3/L SERVICES MPV Comment: Not Measured [facility] SERVICES RDW-CV 24.3 (H) 12.0 - 15.5 % [facility] SERVICES RDW-SD 62.6 (H) 39.0 - 49.9 fL [facility] SERVICES NRBC x10^3 <0.01 10*3/L [facility] SERVICES NRBC/100 WBC 0.0 0.0 - 10.0 [facility] /100 WBCs SERVICES IPF % 7.2Comment: Platelet 1.3 - 7.7 % [facility] count measured by SERVICES fluorescence method. Specimen Blood - ARM, RIGHT Performing Organization Address [facility]/Zipcode Phone Number [facility] CLIA: [id number] [place] [address] [place] [address] MAGNESIUM (04/01/2020 6:23 AM CDT) Pathologist Sig nature MAGNESIUM 1.7 1.7 - 2.4 mg/dL [facility] Specimen Blood - ARM, RIGHT Performing Organization Address City/State/Zipcode Phone Number [facility] CLIA: [id number] [place] [id number] [address] [place] [address] BASIC METABOLIC PANEL (NA, K, CL, CO2, GLUCOSE, BUN, CREATININE, CA) (04/01/2020 6:23 AM CDT) Pathologist [facility] nature NA 138 135 - 145 mmol/L [facility] K 4.0 3.5 - 5.0 mmol/L [facility] CL 108 98 - 108 mmol/L [facility] CO2 TOTAL 24 23 - 31 mmol/L [facility] AGAP 6 2 - 16 [facility] BUN 14 7 - 23 mg/dL [facility] GLUCOSE 106 70 - 110 mg/dL [facility] CREATININE 0.80 0.50 - 1.04 [facility] mg/dL SERVICES CALCIUM 8.7 8.6 - 10.6 mg/dL [facility] eGFR Calculation 70.1 mL/min/1.73m2 [facility] (Non-) SERVICES eGFR Calculation 85.0 mL/min/1.73m2 [facility] () SERVICES Specimen Blood - ARM, RIGHT Narrative Performed At Association of Glomerular Filtration Rate (GFR) and St aging [facility] of Kidney Disease* + + +------- ------ + | GFR (mL/min/1.73 m2) | With Kidney Damage | Wi thout Kidney Damage + + +------- ------ + | >90 | Stage one | Normal + + +------- ------ + | 60-89 | Stage two | Decreased GFR + + +------- ------ + | 30-59 | Stage three | Stage three + + +------- ------ + | 15-29 | Stage four | Stage four + + +------- ------ + | <15 (or dialysis) | Stage five | Stage five + + +------- ------ + *Each stage assumes the associated GFR level has been in effect for at least three months. Stages 1 to 5, wit h or without kidney disease, indicate chronic kidney disease. Notes: Determination of stages one and two (with eGFR >59mL/min/1.73 m2) requires estimation of kidney damag e for at least three months as defined by structural or func tional abnormalities of the kidney, manifested by either: Pathological abnormalities or Markers of kidney damage (including abnormalities in the composition of the blo od or urine or abnormalities in imaging tests) . Performing Organization Address City/State/[facility] Centercode Phone Number [facility] CLIA: [id number] [place] [address] [place] [address] CBC WITHOUT DIFF (03/31/2020 6:39 AM CDT) WBC 4.42 4.30 - 11.10 [facility] 10*3/L SERVICES RBC 3.90 (L) 3.93 - 5.25 [facility] 10*6/L SERVICES HGB 8.2 (L) 11.6 - 15.0 [facility] g/dL SERVICES HCT 27.8 (L) 35.7 - 45.2 % [facility] SERVICES MCH 21.0 (L) 25.9 - 32.8 pg [facility] SERVICES MCV 71.3 (L) 80.6 - 95.5 fL [facility] SERVICES MCHC 29.5 (L) 31.6 - 35.1 [facility] g/dL SERVICES PLT 99 (L) 166 - 358 [facility] 10*3/L SERVICES MPV Comment: Not Measured [facility] SERVICES RDW-CV 24.2 (H) 12.0 - 15.5 % [facility] SERVICES RDW-SD 62.3 (H) 39.0 - 49.9 fL [facility] SERVICES NRBC x10^3 0.02 10*3/L [facility] SERVICES NRBC/100 WBC 0.5 0.0 - 10.0 [facility] /100 WBCs SERVICES IPF % 6.4Comment: Platelet 1.3 - 7.7 % [facility] count measured by SERVICES fluorescence method. Specimen Blood - ARM, RIGHT Performing Organization Address [facility] Cent[facility]ode Phone Number [facility] CLIA: [id number] [place] [address] [place] [address] MAGNESIUM (03/31/2020 6:39 AM CDT) Pathologist Sig nature MAGNESIUM 1.7 1.7 - 2.4 mg/dL [facility] Specimen Blood - ARM, RIGHT Performing Organization Address [facility] Phone Number [facility] CLIA: [id number] [place] [address] [place] [address] BASIC METABOLIC PANEL (NA, K, CL, CO2, GLUCOSE, BUN, CREATININE, CA) (03/31/2020 6:39 AM CDT) Pathologist Sig nature NA 140 135 - 145 [facility] mmol/L SERVICES K 3.9 3.5 - 5.0 [facility] mmol/L SERVICES CL 111 (H) 98 - 108 mmol/L [facility] CO2 TOTAL 22 (L) 23 - 31 mmol/L [facility] AGAP 7 2 - 16 [facility] BUN 10 7 - 23 mg/dL [facility] GLUCOSE 113 (H) 70 - 110 mg/dL [facility] SERVICES CREATININE 0.94 0.50 - 1.04 [facility] mg/dL SERVICES CALCIUM 8.3 (L) 8.6 - 10.6 [facility] mg/dL SERVICES eGFR Calculation 58.2 mL/min/1.73m2 [facility] (Non- SERVICES Citizen Of [place]) eGFR Calculation 70.6 mL/min/1.73m2 [facility] () SERVICES Specimen Blood - ARM, RIGHT Narrative Performed At Association of Glomerular Filtration Rate (GFR) and St aging [facility] SERVICES of Kidney Disease* + + +------- ------ + | GFR (mL/min/1.73 m2) | With Kidney Damage | [facility] Kidney Damage + + +------- ------ + | >90 | Stage one | Normal + + +------- ------ + | 60-89 | Stage two | Decreased GFR + + +------- ------ + | 30-59 | Stage three | Stage three + + +------- ------ + | 15-29 | Stage four | Stage four + + +------- ------ + | <15 (or dialysis) | Stage five | Stage five + + +------- ------ + *Each stage assumes the associated GFR level has been in effect for at least three months. Stages 1 to 5, wit h or without kidney disease, indicate chronic kidney disease. Notes: Determination of stages one and two (with eGFR >59mL/min/1.73 m2) requires estimation of kidney damag e for at least three months as defined by structural or func tional abnormalities of the kidney, manifested by either: Pathological abnormalities or Markers of kidney damage (including abnormalities in the composition of the blo od or urine or abnormalities in imaging tests) . Performing Organization Address City/State/Zipcode Phone Number [facility] CLIA: [id number] [place], [place] [address] [address] [place] [address] SURGICAL PATHOLOGY EXAM (03/30/2020 1:32 PM CDT) Pathologist Sig nature Case Report Surgical Pathology Case: [id number] [facility] Authorizing Provider: Evaristo Cole ra, DO Collected: 03/30/2020 [id number] SERVICES Ordering Location: GI Endoscopy OR Department Received: 03/30/2020 6853 Pathologist: Jo Hernandez MD PHD Specimens: A) - DUODENUM, Duodenal nodual BX to evaluate for pathology B) - STOM ACH, Gastric BX to evaluate for Hpylori C) - ESOP HAGUS, Esophageal BX to evaluate for esophagitis Final Diagnosis [facility] Rut ramirez signed A. DUODENUM, BIOPSY: SERVICES by Jo Hernandez MD - SMALL BOWEL MUCOSA WITH NO PATHOLOGIC CHANGES PHD on 04/01/2020 at 1:53 PM B. STOMACH, BIOPSY: - GASTRIC MUCOSA WITH NO PATHOLOGIC CHANGES - NO H PYLORI ORGANISMS IDENTIFIED - NO INTESTINAL METAPLASIA IDENTIFIED C. ESOPHAGUS, BIOPSY: - SQUAMOUS MUCOSA WITH NO PATHOLOGIC CHANGES - NO INTESTINAL METAPLASIA IDENTIFIED Gladys Garcia [facility] 04/01/2020 8:04 AM I have personally reviewed a ll specimens/slides and agree with all statements made by residents, fellows or pathologist assistants whose name(s) may appear on this report. Clinical 74 y/o female with anemia [facility] Information 1. Duodenal nodual BX to evaluate for pathology SERVICES 2. Gastric BX to evaluate for Hpylori 3. Esophageal BX to evaluate for esophagitis Gross Description Specimen A is received in [facility] labelled with the patient s name, [facility] number duodenum, duodenal nodule biopsy, eval for pathology and consists of a single lofton-pink irregular soft tissue fragme [facility] nt (0.3 x 0.3 x 0.2). The sp ecimen is filtered through a biopsy bag and submitted in toto in A1. SERVICES Specimen B is received in rmalin labelled with the patient s name, [facility] number stomach, gastric biopsy, eval for H. pylori and consists of 2 lofton-pink irregular soft tissue fragments (0.4 x 0.2 x 0.2 cm). The specimen is fi ltered through a biopsy bag and submitted in toto in B1. Specimen [facility] the patient s name, number esophagus, esophageal biopsy, eval for esophagitis and consists of a single lofton-pink irregular soft tissue fragment (0.2 x 0.2 x 0.2 cm). The s pecimen is filtered through a biopsy bag and submitted in toto in C1. Luis Antonio Moreau MD (Pathologist Street Flusher Driver) Embedded Images [facility] Specimen Tissue - DUODENUM Tissue specimen (specimen) - STOMACH Tissue specimen (specimen) - ESOPHAGUS Performing Organization Address City/State/Zipcode Phone Number [facility] CLIA: [id number] [place] [address] [place] [address] Prepare Packed RBC (in units), 1 Units (03/30/2020 9:00 AM CDT) Cross Match Result Compatible LAB ISBT Blood Type Code 5100 LAB Unit Blood Type O Pos LAB Unit Number [id number] LAB Blood Expiration Date & LAB Time Status Information Issued LAB Product Identification Red Blood Cells LAB Product Code [id number] LAB Comment: Performed at [facility] [place] [address] Toll Free: CLIA No. [id number] Specimen Performing Organization Address City/[facility] Phone Number BLD LAB Prepare Packed RBC (in units), 2 Units (03/30/2020 7:43 AM CDT) Cross Match Result Compatible LAB ISBT Blood Type Code 5100 LAB Unit Blood Type O Pos LAB Unit Number [id number] LAB Blood Expiration Date & LAB Time Status Information Released LAB Product Identification Red Blood Cells LAB Product Code [id number] LAB Comment: Performed at [facility] Blood Bank [address] [place] [address] Toll Free: CLIA No. [id number] Cross Match Result Compatible LAB ISBT Blood Type Code 5100 LAB Unit Blood Type O Pos LAB Unit Number [id number] LAB Blood Expiration Date & LAB Time Status Information Issued LAB Product Identification Red Blood Cells LAB Product Code [id number] LAB Comment: Performed at [facility] - [facility] Blood Bank [address] [place], [place] [address] Toll Free: CLIA No. [id number] Specimen Performing Organization Address City/[facility] Phone Number [facility]LD LAB CBC WITHOUT DIFF (03/30/2020 6:03 AM CDT) WBC 3.02 (L) 4.30 - 11.10 [facility] 10*3/L SERVICES RBC 3.17 (L) 3.93 - 5.25 [facility] 10*6/L SERVICES HGB 6.6 (L) 11.6 - 15.0 [facility] g/dL SERVICES HCT 22.5 (L) 35.7 - 45.2 % [facility] SERVICES MCH 20.8 (L) 25.9 - 32.8 pg [facility] SERVICES MCV 71.0 (L) 80.6 - 95.5 fL [facility] SERVICES MCHC 29.3 (L) 31.6 - 35.1 [facility] g/dL SERVICES PLT 66 (L) 166 - 358 [facility] 10*3/L SERVICES MPV Comment: Not Measured [facility] SERVICES RDW-CV 24.9 (H) 12.0 - 15.5 % [facility] SERVICES RDW-SD 63.7 (H) 39.0 - 49.9 fL [facility] SERVICES NRBC x10^3 <0.01 10*3/L [facility] SERVICES NRBC/100 WBC 0.0 0.0 - 10.0 [facility] /100 WBCs SERVICES IPF % 8.9 (H)Comment: 1.3 - 7.7 % [facility] Platelet count SERVICES measured by fluorescence method. Specimen Blood - ARM, LEFT Performing Organization Address City/State/Zipcode Phone Number [facility] CLIA: [id number] [place] [address] [place] [address] BASIC METABOLIC PANEL (NA, K, CL, CO2, GLUCOSE, BUN, CREATININE, CA) (03/29/2020 4:32 AM CDT) Pathologist Sig nature NA 139 135 - 145 [facility] mmol/L SERVICES K 4.1 3.5 - 5.0 [facility] mmol/L SERVICES CL 113 (H) 98 - 108 mmol/L [facility] SERVICES CO2 TOTAL 19 (L) 23 - 31 mmol/L [facility] SERVICES AGAP 7 2 - 16 [facility] SERVICES BUN 18 7 - 23 mg/dL [facility] SERVICES GLUCOSE 103 70 - 110 mg/dL [facility] SERVICES CREATININE 0.91 0.50 - 1.04 [facility] mg/dL SERVICES CALCIUM 8.0 (L) 8.6 - 10.6 [facility] mg/dL SERVICES eGFR Calculation 60.4 mL/min/1.73m2 [facility] (Non- SERVICES Citizen Of [place]) eGFR Calculation 73.2 mL/min/1.73m2 [facility] () SERVICES Specimen Blood - ARM, LEFT Narrative Performed At Association of Glomerular Filtration Rate (GFR) and St aging [facility] of Kidney Disease* + + +------- ------ + | GFR (mL/min/1.73 m2) | With Kidney Damage | Wi thout Kidney Damage + + +------- ------ + | >90 | Stage one | Normal + + +------- ------ + | 60-89 | Stage two | Decreased GFR + + +------- ------ + | 30-59 | Stage three | Stage three + + +------- ------ + | 15-29 | Stage four | Stage four + + +------- ------ + | <15 (or dialysis) | Stage five | Stage five + + +------- ------ + *Each stage assumes the associated GFR level has been in effect for at least three months. Stages 1 to 5, wit h or without kidney disease, indicate chronic kidney disease. Notes: Determination of stages one and two (with eGFR >59mL/min/1.73 m2) requires estimation of kidney damag e for at least three months as defined by structural or func tional abnormalities of the kidney, manifested by either: Pathological abnormalities or Markers of kidney damage (including abnormalities in the composition of the blo od or urine or abnormalities in imaging tests) . Performing Organization Address City/State/Zipcode Phone Number [facility] CLIA: [id number] [place] [address] [place] [address] CBC WITHOUT DIFF (03/29/2020 4:32 AM CDT) WBC 4.25 (L) 4.30 - 11.10 [facility] 10*3/L SERVICES RBC 3.38 (L) 3.93 - 5.25 [facility] 10*6/L SERVICES HGB 7.0 (L) 11.6 - 15.0 [facility] g/dL SERVICES HCT 24.1 (L) 35.7 - 45.2 % [facility] SERVICES MCH 20.7 (L) 25.9 - 32.8 pg [facility] SERVICES MCV 71.3 (L) 80.6 - 95.5 fL [facility] MCHC 29.0 (L) 31.6 - 35.1 [facility] g/dL SERVICES PLT 101 (L) 166 - 358 [facility] 10*3/L SERVICES MPV Comment: Not Measured [facility] SERVICES RDW-CV 23.9 (H) 12.0 - 15.5 % [facility] SERVICES RDW-SD 61.6 (H) 39.0 - 49.9 fL [facility] SERVICES NRBC x10^3 0.03 10*3/L [facility] SERVICES NRBC/100 WBC 0.7 0.0 - 10.0 [facility] /100 WBCs SERVICES IPF % 6.0Comment: Platelet 1.3 - 7.7 % [facility] count measured by SERVICES fluorescence method. Specimen Blood - ARM, LEFT Performing Organization Address City/State/Zipcode Phone Number [facility] CLIA: [id number] [place] [address] [place] [address] CBC WITHOUT DIFF (03/28/2020 9:06 PM CDT) WBC 4.40 4.30 - 11.10 [facility] 10*3/L SERVICES RBC 3.32 (L) 3.93 - 5.25 [facility] 10*6/L SERVICES HGB 6.9 (L) 11.6 - 15.0 [facility] g/dL SERVICES HCT 23.5 (L) 35.7 - 45.2 % [facility] SERVICES MCH 20.8 (L) 25.9 - 32.8 pg [facility] SERVICES MCV 70.8 (L) 80.6 - 95.5 fL [facility] SERVICES MCHC 29.4 (L) 31.6 - 35.1 [facility] g/dL SERVICES PLT 109 (L) 166 - 358 [facility] 10*3/L SERVICES MPV Comment: Not Measured [facility] SERVICES RDW-CV 24.1 (H) 12.0 - 15.5 % [facility] SERVICES RDW-SD 61.0 (H) 39.0 - 49.9 fL [facility] SERVICES NRBC x10^3 0.06 10*3/L [facility] SERVICES NRBC/100 WBC 1.4 0.0 - 10.0 [facility] /100 WBCs SERVICES IPF % 5.9Comment: Platelet 1.3 - 7.7 % [facility] count measured by SERVICES fluorescence method. Specimen Blood - HAND, RIGHT Performing Organization Address [facility] Phone Number [facility] CLIA: [id number] [place] [address] [place] [address] Prepare Packed RBC (in units), 1 Units (03/28/2020 3:25 PM CDT) [facility] Cross Match Result Compatible LAB ISBT Blood Type Code 5100 LAB Unit Blood Type O Pos LAB Unit Number [id number] LAB Blood Expiration Date & LAB Time Status Information Issued LAB Product Identification Red Blood Cells LAB Product Code [id number] LAB Comment: Performed at [facility] - [facility] Blood Bank [address] [place] [address] Toll Free: [phone] CLIA No. [id number] Specimen Performing Organization Address [facility] Phone Number [facility] IRON PANEL (03/28/2020 11:35 AM CDT) Pathologist [facility] nature IRON 52 50 - 160 ug/dL [facility] TIBC 519 (H) 250 - 410 ug/dL [facility] SERVICES % FE SAT 10 (L) 20 - 50 % [facility] SERVICES Specimen Blood - ARM, RIGHT Performing Organization Address [facility] Phone Number [facility] CLIA: [id number] [place] [address] [place] [address] CREATININE, URINE RANDOM (03/28/2020 11:35 AM CDT) Pathologist [facility] nature CREAT U 33.1 mg/dL [facility] Specimen Urine - URINE, CLEAN CATCH Performing Organization Address [facility] Phone Number [facility] CLIA: [id number] [place] [address] [place] [address] CBC WITHOUT DIFF (03/28/2020 11:35 AM CDT) [facility] Cindy WBC 4.38 4.30 - 11.10 [facility] 10*3/L SERVICES RBC 3.05 (L) 3.93 - 5.25 [facility] 10*6/L SERVICES HGB 6.0 (L) 11.6 - 15.0 [facility] g/dL SERVICES HCT 21.0 (L) 35.7 - 45.2 % [facility] SERVICES MCH 19.7 (L) 25.9 - 32.8 pg [facility] SERVICES MCV 68.9 (L) 80.6 - 95.5 fL [facility] SERVICES MCHC 28.6 (L) 31.6 - 35.1 [facility] g/dL SERVICES PLT 119 (L) 166 - 358 [facility] 10*3/L SERVICES MPV Comment: Not Measured [facility] SERVICES RDW-CV 23.8 (H) 12.0 - 15.5 % [facility] SERVICES RDW-SD 58.9 (H) 39.0 - 49.9 fL [facility] SERVICES NRBC x10^3 0.07 10*3/L [facility] SERVICES NRBC/100 WBC 1.6 0.0 - 10.0 [facility] /100 WBCs SERVICES IPF % 6.3Comment: Platelet 1.3 - 7.7 % [facility] count measured by SERVICES fluorescence method. Specimen Blood - ARM, RIGHT Performing Organization Address City/[facility] Phone Number [facility] CLIA: [id number] [place] [address] [place] [address] Prepare Packed RBC (in units), 1 Units (03/28/2020 6:18 AM CDT) Cross Match Result Compatible LAB ISBT Blood Type Code 9500 LAB Unit Blood Type O Neg LAB Unit Number [id number] LAB Blood Expiration Date & LAB Time Status Information Issued LAB Product Identification Red Blood Cells LAB Product Code [id number] LAB Comment: Performed at [facility] - [facility] Blood Bank [address] [place] [address], [place] [address] Toll Free: [phone] CLIA No. [id number] Specimen Performing Organization Address City/State/Zipcode Phone Number BLD LAB UREA NITROGEN, URINE RANDOM (03/28/2020 6:01 AM CDT) Pathologist Sig nature UREA N UR 273 mg/dL [facility] Specimen Urine - URINE, CLEAN CATCH Performing Organization Address City/State/Zipcode Phone Number [facility] CLIA: [id number] [place] [address] [place] [address] Type and Screen - ONCE STAT (03/28/2020 5:13 AM CDT) Pathologist Sig nature ABO & RH O POSITIVE LAB Comment: Performed at [facility] Services - [facility] Blood [place] [address] Toll Free: [phone] CLIA No. [id number] IAT Negative LAB Comment: Performed at [facility] Services - [facility] Blood [place] [address] Toll Free: [phone] CLIA No. [id number] Specimen VENOUS Performing Organization Address City/State/Zipcode Phone Number [facility] LAB FERRITIN SERUM (03/28/2020 5:12 AM CDT) Pathologist Sig nature FERRITIN 5.3 (L) 11.0 - 264.0 ng/mL [facility]IC ES Specimen Blood - ARM, RIGHT Narrative Performed At Biotin has been reported to cause a negative bias, int erpret [facility] SERVICES results relative to patient's use of biotin. Performing Organization Address City/State/Zipcode Phone Number [facility] CLIA: [id number] [place] [address] [place] [address] INTACT PTH CALCIUM GROUP (03/28/2020 5:12 AM CDT) CALCIUM 7.9 (L) 8.6 - 10.6 [facility] mg/dL SERVICES PTH-INTACT 46.5 12.0 - 88.0 [facility] pg/mL SERVICES PTH-CA Interpretation Comment: Further [facility] clinical data SERVICES needed for interpretation. Specimen Blood - ARM, RIGHT Performing Organization Address City/State/Zipcode Phone Number [facility] CLIA: [id number] [place] [address] [place] [address] aPTT (03/28/2020 5:12 AM CDT) Pathologist Sig nature APTT Patient 20 (L) 26 - 36 Seconds [facility] SERVICES Specimen Blood - ARM, RIGHT Performing Organization Address City/State/Zipcode Phone Number [facility] CLIA: [id number] [place] [address] [place] [address] Prothrombin Time / INR (03/28/2020 5:12 AM CDT) PROTIME PATIENT 12.5 10.1 - 12.6 [facility] Seconds SERVICES INR 1.1Comment: Normal [facility] INR <1.1; Warfarin SERVICES Therapeutic range 2.0 to 3.0 or 2.5 to 3.5, depending upon the indications. Specimen Blood - ARM, RIGHT Performing Organization Address City/[facility] Phone Number [facility] CLIA: [id number] [place] [address] [place] [address] Phosphorus Serum (03/28/2020 5:12 AM CDT) Pathologist Sig nature PHOSPHORUS 5.2 (H) 2.5 - 5.0 mg/dL [facility] SERVICES Specimen Blood - ARM, RIGHT Performing Organization Address [facility] Phone Number [facility] CLIA: [id number] [place] [address] [place] [address] Magnesium Serum (03/28/2020 5:12 AM CDT) Pathologist Sig nature MAGNESIUM 2.0 1.7 - 2.4 mg/dL [facility] SERVICES Specimen Blood - ARM, RIGHT Performing Organization Address [facility] Phone Number [facility] CLIA: [id number] [place] [address] [place] [address] CBC WITHOUT DIFF (03/28/2020 5:12 AM CDT) WBC 4.65 4.30 - 11.10 [facility] 10*3/L SERVICES RBC 2.62 (L) 3.93 - 5.25 [facility] 10*6/L SERVICES HGB 4.8 (LL) 11.6 - 15.0 [facility] g/dL SERVICES HCT 17.6 (L) 35.7 - 45.2 % [facility] SERVICES MCH 18.3 (L) 25.9 - 32.8 pg [facility] SERVICES MCV 67.2 (L) 80.6 - 95.5 fL [facility] SERVICES MCHC 27.3 (L) 31.6 - 35.1 [facility] g/dL SERVICES PLT 115 (L) 166 - 358 [facility] 10*3/L SERVICES MPV Comment: Not Measured [facility] SERVICES RDW-CV 25.0 (H) 12.0 - 15.5 % [facility] SERVICES RDW-SD 58.6 (H) 39.0 - 49.9 fL [facility] SERVICES NRBC x10^3 0.06 10*3/L [facility] SERVICES NRBC/100 WBC 1.3 0.0 - 10.0 [facility] /100 WBCs SERVICES IPF % 6.7Comment: Platelet 1.3 - 7.7 % [facility] count measured by SERVICES fluorescence method. Specimen Blood - ARM, RIGHT Performing Organization Address City/State/Zipcode Phone Number [facility] CLIA: [id number] [place] [address] [place] [address] BASIC METABOLIC PANEL (NA, K, CL, CO2, GLUCOSE, BUN, CREATININE, CA) (03/28/2020 5:12 AM CDT) NA 137 135 - 145 [facility] mmol/L SERVICES K 4.1 3.5 - 5.0 [facility] mmol/L SERVICES CL 109 (H) 98 - 108 mmol/L [facility] SERVICES CO2 TOTAL 20 (L) 23 - 31 mmol/L [facility] SERVICES AGAP 8 2 - 16 [facility] SERVICES BUN 32 (H) 7 - 23 mg/dL [facility] SERVICES GLUCOSE 126 (H) 70 - 110 mg/dL [facility] SERVICES CREATININE 1.16 (H) 0.50 - 1.04 [facility] mg/dL SERVICES CALCIUM 8.3 (L) 8.6 - 10.6 [facility] mg/dL SERVICES eGFR Calculation 45.7 mL/min/1.73m2 [facility] (Non- SERVICES Citizen [place]) eGFR Calculation 55.3 mL/min/1.73m2 [facility] () SERVICES Specimen Blood - ARM, RIGHT Narrative Performed At [employer] of Glomerular Filtration Rate (GFR) and St aging [facility] SERVICES of Kidney Disease* + + +------- ------ + | GFR (mL/min/1.73 m2) | With Kidney Damage | Wi thout Kidney Damage + + +------- ------ + | >90 | Stage one | Normal + + +------- ------ + | 60-89 | Stage two | Decreased GFR + + +------- ------ + | 30-59 | Stage three | Stage three + + +------- ------ + | 15-29 | Stage four | Stage four + + +------- ------ + | <15 (or dialysis) | Stage five | Stage five + + +------- ------ + *Each stage assumes the associated GFR level has been in effect for at least three months. Stages 1 to 5, wit h or without kidney disease, indicate chronic kidney disease. Notes: Determination of stages one and two (with eGFR >59mL/min/1.73 m2) requires estimation of kidney damag e for at least three months as defined by structural or func tional abnormalities of the kidney, manifested by either: Pathological abnormalities or Markers of kidney damage (including abnormalities in the composition of the blo od or urine or abnormalities in imaging tests) . Performing Organization Address City/State/Zipcode Phone Number [facility] CLIA: [id number] [place] [address] [address] [address] [place], [place] [address]vd ABORH CONFIRMATION (03/28/2020 12:33 AM CDT) Pathologist Sig nature ABO & RH O Positive LAB Comment: Performed at [facility] Laboratory Services - [facility] Blood Bank [address] [place], [place] [phone] Toll Free: [phone] CLIA No. [id number] Specimen Performing Organization Address City/[facility]/Zipcode Phone Number BLD LAB Type and Screen - ONCE FREDO (03/28/2020 12:27 AM CDT) Pathologist Sig nature ABO & RH O Positive LAB Comment: Performed at [facility] Laboratory Services - [facility] Blood Bank [address] [place] [address] Toll Free: [phone] CLIA No. [id number] IAT Negative LAB Comment: Performed at [facility] Laboratory Services - [facility] Blood Bank [address] [place] [address] Toll Free: [phone] CLIA No. [id number] Specimen Blood - VENOUS Performing Organization Address City/[facility]/Zipcode Phone Number BLD LAB Urinalysis (03/27/2020 11:34 PM CDT) Pathologist Sig nature APPEARANCE Hazy (A) Clear [facility] COLOR Yellow Yellow [facility] PH 5.0 4.8 - 8.0 [facility] SP GRAVITY 1.011 1.003 - 1.030 [facility] GLU U QUAL Normal Normal [facility] BLOOD Negative Negative [facility] KETONES Negative Negative [facility] PROTEIN Negative Negative [facility] UROBILIN 2.0 mg/dL (A) Normal [facility] BILIRUBIN Negative Negative [facility] NITRITE Negative Negative [facility] LEUK SIMONE 25/uL (A) Negative [facility] RBC/HPF 1 0 - 3 HPF [facility] WBC/HPF 8 (H) 0 - 5 HPF [facility] BACTERIA Few (A) Negative [facility] MUCOUS Slight (A) Negative LPF [facility] SQ EPITH 1 HPF [facility] HYAL CAST 11 (H) <=2 LPF [facility] Specimen Urine - URINE, CLEAN CATCH Performing Organization Address City/[facility] Phone Number [facility] CLIA: [id number] [place] [address] COVID-19 (ID NOW RAPID TESTING) (03/27/2020 11:25 PM CDT) SARS-CoV-2 Rapid ID Not Detected Not Detected [facility] Specimen Swab - NASOPHARYNGEAL SWAB Narrative Performed At ID NOW COVID-19 Assay is an isothermal nucleic [facility] acid amplification test intended for the qualitative detection of nucleic acid from SARS-CoV-2 viral RNA in nasopharyngeal (BINDER CUTTER) specimens. It is used under Emergency Use Authorization (EUA) by FDA. The limit of detection (LOD) of the assay is 125 Genome Equivalents/mL. A positive result is indicative of the presence of SARS-CoV-2 RNA. Clinical correlation with patient history and other diagnostic information is necessary to determine patient infection status. A negative (Not Detected) result does not preclude SARS-CoV-2 infection. In patients with clinical symptoms and other tests that are consistent with SARS-CoV-2 infection, negative results should be treated as presumptive negative and a new specimen should be tested with alternative PCR molecular test. Invalid: Please collect a new specimen for repeat patient testing if clinically indicated. Performing Organization Address City/[facility] Phone Number [facility] CLIA: [id number] [place] [address] Chest 1 View (03/27/2020 11:21 PM CDT) Specimen Impressions Performed At Findings and Impression: Suboptimal in spiratory volumes resulting in PACS/VR/DOSE bronchovascular crowding and scattered subsegmental at electasis especially in the lung bases. Superimposed infection in this lyle on would be difficult to exclude. Correlate clinically. No definite focal consolidation identifi ed. No pleural effusion or pneumothorax. Multiple punctate densities projecting o dante the right chest and right adnexal region are either external to th e patient or within the soft tissues. Correlate with patient history. Heart size is normal to mildly enlarged. No acute osseous abnormality Narrative Performed At PORTABLE CHEST RADIOGRAPH PACS/VR/DOSE History: sob Comparison: None available. TECHNIQUE: AP view of the chest. Procedure Note [facility], Radiant Results Inft User - 2019 12:04 AM CDT PORTABLE CHEST RADIOGRAPH History: sob Comparison: None available. TECHNIQUE: AP view of the chest. IMPRESSION Findings and Impression: Suboptimal ins piratory volumes resulting in bronchovascular crowding and scattered s ubsegmental atelectasis especially in the lung bases. Superimposed infectio n in this region would be difficult to exclude. Correlate clinically. No definite focal consolidation identifi ed. No pleural effusion or pneumothorax. Multiple punctate densities projecting o dante the right chest and right adnexal region are either external to th e patient or within the soft tissues. Correlate with patient history. Heart size is normal to mildly enlarged. No acute osseous abnormality Performing Organization Address City/State/Zipcode Phone Number PACS/VR/DOSE Troponin I (03/27/2020 11:16 PM CDT) Pathologist Sig nature TROPONIN I <0.012 <=0.034 ng/mL [facility] Specimen Blood - VENOUS Narrative Performed At Equal or Less than 0.034 ng/ml---Normal [facility] Note: Cardiac troponin begins to rise 3-4 hours after the onset of ischemia. Repeat in 4-6 hours if the sample was drawn within 3-4 hours of the onset of the symptom and found normal. Between 0.035 and 0.120 ng/mL--- Borderline. Questionable myocardial injury or necros is Note: Serial measurement may be necessary to confirm or exclude the diagnosis of myocardial injury or necrosis; Clinical correlation (symptoms, EKGs, imaging studies, and others) required; Repeat in 4-6 hours if clinically indicated. Equal or Higher than 0.121 ng/mL---Abnormal. Myocardial Injury or Necrosis Likely Biotin has been reported to cause a negative bias, interpret results relative to patient's use of biotin. Performing Organization Address [facility] Phone Number [facility] CLIA: [id number] [place] [address] LABORATORY [address] [facility] Lipase Serum (03/27/2020 11:16 PM CDT) Pathologist Sig nature LIPASE 188 0 - 220 U/L [facility] Specimen Blood - VENOUS Performing Organization Address [facility] Phone Number [facility] CLIA: [id number] [place] [address] LABORATORY [address] [facility] Hepatic Function Panel (ALB, T.PRO, BILI T, BU/BC, ALT, AST, ALK PHOS) (03/27/2020 11:16 PM CDT) Pathologist Sig nature TOTAL BILI 0.7 0.1 - 1.1 mg/dL [facility] BILI UNCON 0.8 0.1 - 1.1 mg/dL [facility] BILI CONJ 0.0 0.0 - 0.3 mg/dL [facility] T PROTEIN 6.8 6.3 - 8.2 g/dL [facility] ALBUMIN 3.7 3.5 - 5.0 g/dL [facility] ALK PHOS 100 34 - 122 U/L [facility] ALTv 15 5 - 35 U/L [facility] AST(SGOT) 31 13 - 40 U/L [facility] Specimen Blood - VENOUS Performing Organization Address [facility] Phone Number [facility] CLIA: [id number] [place] [address] LABORATORY [address] [facility] Basic Metabolic Panel (NA, K, CL, CO2, GLUCOSE, BUN, CREATININE, CA) (03/27/2020 11:16 PM CDT) NA 137 135 - 145 [facility] mmol/L [facility] K 4.1 3.5 - 5.0 [facility] mmol/L [facility] CL 106 98 - 108 mmol/L [facility] CO2 TOTAL 20 (L) 23 - 31 mmol/L [facility] AGAP 11 2 - 16 [facility] BUN 29 (H) 7 - 23 mg/dL [facility] GLUCOSE 137 (H) 70 - 110 mg/dL [facility] CREATININE 1.22 (H) 0.50 - 1.04 [facility] mg/dL [facility] CALCIUM 8.7 8.6 - 10.6 [facility] mg/dL [facility] eGFR Calculation 43.1 mL/min/1.73m2 [facility] (Non-[facility] LABORATORY Citizen Of [place]) eGFR Calculation 52.2 mL/min/1.73m2 [facility] () [facility] Specimen Blood - VENOUS Narrative Performed At Association of Glomerular Filtration Rate (GFR) [facility] and Staging of Kidney Disease* + + +- + | GFR (mL/min/1.73 m2) | With Kidney Damage | Without Kidney Damage + + +- + | >90 | Stage one | Normal + + +- + | 60-89 | Stage two | Decreased GFR + + +- + | 30-59 | Stage three | Stage three + + +- + | 15-29 | Stage four | Stage four + + +- + | <15 (or dialysis) | Stage five | Stage five + + +- + *Each stage assumes the associated GFR level has been in effect for at least three months. Stages 1 to 5, with or without kidney disease, indicate chronic kidney disease. Notes: Determination of stages one and two (with eGFR >59mL/min/1.73 m2) requires estimation of kidney damage for at least three months as defined by structural or functional abnormalities of the kidney, manifested by either: Pathological abnormalities or Markers of kidney damage (including abnormalities in the composition of the blood or urine or abnormalities in imaging tests). Performing Organization Address City/State/Zipcode Phone Number [facility] CLIA: [id number] [place] [address] CBC with Differential (03/27/2020 11:16 PM CDT) WBC 5.85 4.30 - 11.10 [facility] 10*3/L HOSPITAL LABORATORY RBC 2.51 (L) 3.93 - 5.25 [facility] 10*6/L HOSPITAL LABORATORY HGB 4.0 (LL) 11.6 - 15.0 [facility] g/dL [facility] HCT 15.6 (L) 35.7 - 45.2 % [facility] MCV 62.2 (L) 80.6 - 95.5 [facility] LABORATORY MCH 15.9 (L) 25.9 - 32.8 [facility] pg [facility] MCHC 25.6 (L) 31.6 - 35.1 [facility] g/dL [facility] RDW-SD 47.0 39.0 - 49.9 [facility] LABORATORY RDW-CV 21.6 (H) 12.0 - 15.5 % [facility] PLT 112 (L) 166 - 358 [facility] 10*3/L [facility] MPV Comment: Not [facility] Measured [facility] NRBC/100 WBC 1.2 0.0 - 10.0 [facility] /100 WBCs [facility] NRBC x10^3 0.07 10*3/L [facility] GRAN MAT (NEUT) % 65.0 % [facility] IMM GRAN % 0.50 % [facility] LYMPH % 24.1 % [facility] MONO % 9.2 % [facility] EOS % 1.0 % [facility] BASO % 0.2 % [facility] GRAN MAT 3.80 1.88 - 7.09 [facility] x10^3(ANC) 10*3/uL HOSPITAL LABORATORY IMM GRAN x10^3 0.03 0.00 - 0.06 [facility] 10*3/uL HOSPITAL LABORATORY LYMPH x10^3 1.41 1.32 - 3.29 [facility] 10*3/uL HOSPITAL LABORATORY MONO x10^3 0.54 0.33 - 0.92 [facility] 10*3/uL HOSPITAL LABORATORY EOS x10^3 0.06 0.03 - 0.39 [facility] 10*3/uL HOSPITAL LABORATORY BASO x10^3 <0.03 0.01 - 0.07 [facility] 10*3/uL HOSPITAL LABORATORY Specimen Blood - VENOUS Performing Organization Address City/State/Zipcode Phone Number [facility] CLIA: [id number] [place] [address] documented in this encounter Visit Diagnoses Diagnosis Gastrointestinal hemorrhage, unspecified gastrointestinal hemorrhage type - Primary SOB (shortness of breath) Shortness of breath Anemia, unspecified type Gastrointestinal hemorrhage with melena Adenomatous polyp of ascending colon documented in this encounter Administered Medications Medication Order MAR Action Action Date Dose Rate Site acetaminophen (TYLENOL) tablet Given 04/01/2020 7:50 PM CDT 650 mg 650 mg 650 mg, Oral, Q6HPRN, Starting 03/28/20 at 0454, Until Discontinued, Routine, Pain (scale 1-3) albuterol (PROVENTIL) 2.5 mg /3 mL (0.083 %) Given 07/2020 9:24 AM CDT 2.5 mg nebulizer solution 2.5 mg 2.5 mg, Inhalation, Q4HPRN, Starting 03/28/20 at 0451, Until Discontinued, Routine, Shortness of Breath, Wheezing Given 03/29/2020 10:50 PM CDT 2.5 mg Fluticasone-Salmeterol (ADVAIR) 100-50 m cg/dose inhalation disk 1 Puff 1 Puff, Inhalation, [id number], Starting 03/28/20 at 05 00, Until Discontinued, wheezing melatonin (MELATIN) tablet 3 mg Given 04/01/2020 7:50 PM CDT 3 mg 3 mg, Oral, QHS, First dose (after last modification) on 03/28/20 at 2315, Until Discontinued, Routine Given 03/31/2020 7:55 PM CDT 3 mg Given 03/30/2020 9:09 PM CDT 3 mg ondansetron (ZOFRAN (PF)) injection 4 mg Given 04/01/2020 9:29 AM CDT 4 mg 4 mg, Slow IV Push, Q6HPRN, Starting 03/29/20 at 1847, Until Discontinued, Routine, Nausea and Vomiting (N/V) Given 03/31/2020 7:50 PM CDT 4 mg pantoprazole (PROTONIX) EC tablet 40 mg Given 04/02/2020 8:44 AM CDT 40 mg 40 mg, Oral, DAILY, First dose on Sun03/31/20 at 0900, Until Discontinued, Routine Given 04/01/2020 8:49 AM CDT 40 mg Given 03/31/2020 9:27 AM CDT 40 mg peg-electrolyte soln (GOLYTELY) 236-22.7 4-6.74 -5.86 gram solution 2,000 mL 2,000 mL, Oral, PRE-PROCEDURE ONCE, 1 dose, Starting M on 03/29/20 at 1847, Until Discontinued, Routine, Bowel Prep, Colonoscopy peg-electrolyte soln (GOLYTELY) 236-22.7 4-6.74 -5.86 gram solution 2,000 mL 2,000 mL, Oral, PRE-PROCEDURE ONCE, 1 dose, Starting T ue 03/30/20 at 0400, Until Discontinued, Routine, Bowel Prep, Bowel Prep for [place] noscopy sennosides (SENOKOT) tablet 8.6 mg Given 04/02/2020 8:44 AM CDT 8.6 mg 8.6 mg, Oral, DAILY, First dose on Sun03/31/20 at 1900, Until Discontinued, Routine Given 04/01/2020 8:49 AM CDT 8.6 mg Medication Order MAR Action Action Date Dose Rate Site bisacodyL (DULCOLAX) tablet 10 mg Given 03/29/2020 9:31 PM CDT 10 mg 10 mg, Oral, PRE-PROCEDURE ONCE, 1 dose, Starting 03/29/20 at 1847, Until Sun03/29/20 at 2131, Routine, Bowel Prep, Colonoscopy bisacodyL (DULCOLAX) tablet 10 mg Given 03/30/2020 5:51 AM CDT 10 mg 10 mg, Oral, PRE-PROCEDURE ONCE, 1 dose, Starting 03/29/20 at 1847, Until Tu03/30/20 at 0551, Routine, Bowel Prep, Colonoscopy iron dextran (INFED) 1,000 mg in NaCl New Bag 03/31/2020 8:04 PM CDT 1,000 mg 0.9% (NS) 500 mL IV infusion 1,000 mg, IV Infusion, ONCE, 1 dose, 03/31/20 at 1530, 500 mL iron dextran (INFED) 25 mg in NaCl 0.9% (NS) Given 07/2020 6:50 PM CDT 25 mg 100 mL IV piggyback 25 mg, IV Piggyback, ONCE, 1 dose, Sun03/31/20 at 1530, 100 mL melatonin (MELATIN) tablet 3 mg Given 04/02/2020 1:38 AM CDT 3 mg 3 mg, Oral, ONCE NOW, 1 dose, Sun04/02/20 at 0230, Routine pantoprazole (PROTONIX) 80 mg in NaCl 0.9% Given 03/28/2020 12:4 4 AM CDT 80 mg (NS) 20 mL syringe 80 mg, IV Push, ONCE, 1 dose, 03/28/20 at 0115, 20 mL pantoprazole (PROTONIX) 80 mg in New Bag 03/31/2020 1:18 AM C DT 8 mg/hr 50 mL/hr NaCl 0.9% (NS) 500 mL infusion 8 mg/hr (50 mL/hr), IV Infusion, CONTINUOUS, Starting 03/28/20 at 0115 New Bag 03/30/2020 3:10 PM CDT 8 mg/hr 50 mL/hr New Bag 03/30/2020 2:53 AM CDT 8 mg/hr 50 mL/hr peg-electrolyte soln (GOLYTELY) Given 03/28/2020 8:59 PM CDT 2, 000 mL 236-22.74-6.74 -5.86 gram solution 2,000 mL 2,000 mL, Oral, PRE-PROCEDURE ONCE, 1 dose, Starting 03/28/20 at 1730, Until 03/28/20 at 2059, Routine, Bowel Prep, Colonoscopy peg-electrolyte soln (GOLYTELY) Given 03/29/2020 4:35 AM CDT 2, 000 mL 236-22.74-6.74 -5.86 gram solution 2,000 mL 2,000 mL, Oral, PRE-PROCEDURE ONCE, 1 dose, Starting 03/28/20 at 1656, Until 03/29/20 at 0435, Routine, Bowel Prep, Bowel Prep for Colonoscopy peg-electrolyte soln (GOLYTELY) Given 03/29/2020 1:23 PM CDT 2, 000 mL 236-22.74-6.74 -5.86 gram solution 2,000 mL 2,000 mL, Oral, PRE-PROCEDURE ONCE, 1 dose, Starting 03/29/20 at 0734, Until 03/29/20 at 1323, Routine, Bowel Prep, Colonoscopy documented in this encounter Additional Health Concerns Infection Onset Date Last Indicated Resolved Time COVID-19 Rule Out 03/27/2020 03/27/2020 03/28/2020 12: 03 AM CDT documented as of this encounter Insurance Payer Benefit Plan / Subscriber ID Effective Dates Phone Addre ss Type Group [facility] ILIA [facility] MORILLO [id number] 2020-Presen Medicare Adv PLUS PLUS CHOICE t HMO/POS [phone] [id number] (Work) documented as of this encounter
--- OUTSIDE RECORDS SUMMARY | 2020-04-14 09:52 | XMS REPORT | Summary of Care ---
:1945 Author Organization [facility] - [facility] Address [address] [place] [address] Care Team Providers Name Role Phone John Tapia MD Primary Care Provider [phone] Reason for Visit Reason Comments Orders Encounter Details Date Type Department Care Team Description 04/06/2020 Telephone [facility] Geriatrics- Oumou Vega MD Orders () [facility] [address] [facility] [id number] [place] [address] Entrance B [phone] [place], [place] [address] [phone] Allergies Active Allergy Reactions Severity Noted Date Comments Codeine Nausea and/or Vomiting 03/27/2020 documented as of this encounter (statuses as of 04/08/2020) Medications Medication Sig Dispensed Refills Start Date [...] as of this encounter (statuses as of 04/08/2020) Active Problems Problem Noted Date GIB (gastrointestinal bleeding) 03/28/2020 Gastrointestinal hemorrhage, unspecified gastrointesti nal hemorrhage type 03/27/2020 Overview: Added automatically from request for marnie akins [id number] documented as of this encounter (statuses as of 04/08/2020) Social History Tobacco Use Types Packs/Day Years [...] this encounter Miscellaneous Notes Telephone Encounter - Jenn Vincent RN - 04/07/2020 1:27 PM CDTNotified via fax that patient seen only in the hospital by Dr. Vincent and to contact PCP for furtherorders. elephone Encounter - Jazmine Biggs - 04/06/2020 4:29 PM CDTVirsterling Singh is a 74 year old female [facility] from [facility] Staff is calling to verify if provider will be following patient's care. Please contact at [phone] using Option 5. documented in this encounter Plan of Treatment [...] Typ e / Group Dates ILIA MORILLO [id number] 2014-Pr [phone] Medica re Adv PLUS/SELECTCA PLUS/SELECTCA esent [phone] [place] [address] [facility] [id number] 2020-Pres Medica re Adv [place] PLUS TEXAN PLUS ent HMO/POS CHOICE documented as of this encounter
--- OUTSIDE RECORDS SUMMARY | 2020-04-14 09:52 | XMS REPORT | Summary of Care ---
:1945 Author Organization [facility] Address [address] [place] [address] Care Team Providers Name Role Phone John Tapia MD Primary Care Provider [phone] Reason for Visit Reason Comments Orders Encounter Details Date Type Department Care Team Description 04/06/2020 Telephone [facility] Geriatrics- Oumou Vega MD Orders () [facility] Mult[facility] Ctr [address] [facility] [id number] [address] [place] [address] Entrance B [phone] [place], [place] [address] [phone] Allergies Active Allergy Reactions Severity Noted Date Comments Codeine Nausea and/or Vomiting 03/27/2020 documented as of this encounter (statuses as of 04/07/2020) Medications Medication Sig Dispensed Refills Start Date [...] as of this encounter (statuses as of 04/07/2020) Active Problems Problem Noted Date GIB (gastrointestinal bleeding) 03/28/2020 Gastrointestinal hemorrhage, unspecified gastrointesti nal hemorrhage type 03/27/2020 Overview: Added automatically from request for marnie akins [id number] documented as of this encounter (statuses as of 04/07/2020) Social History Tobacco Use Types Packs/Day Years [...] Singh is a 74 year old female [facility] from [facility] Staff is calling to verify if provider will be following patient's care. Please contact at [phone] using Option 5. documented in this encounter [...] Typ e / Group Dates ILIA MORILLO [id number] 2014-Pr [phone] Medica re Adv PLUS/SELECTCA PLUS/SELECTCA esent [phone] [place] [address] [facility] [id number] 2020-Pres Medica re Adv [place] PLUS [place] PLUS ent HMO/POS CHOICE documented as of this encounter
--- NOTE | 2020-04-14 10:23 | RAD REPORT ---
EXAM DESCRIPTION: RAD - Ankle Left 3 View - 04/14/2020 9:55 am CLINICAL HISTORY: Pain;Swelling, patient denies trauma history COMPARISON: Ankle Left 3 View dated 01/24/2017 FINDINGS: No fracture, dislocation or periosteal reaction. No joint effusion seen. Bones are osteope dasha. Soft tissue swelling is present around the ankle joint more pronounced than seen in 2017. Moderately large plantar spur is present similar to comparison. IMPRESSION: Osteopenic and degenerative changes are present but no acute bone or joint finding ident ifiable. Moderate-sized plantar spur similar to 2017 study. Soft tissue swelling around the ankle joint.
--- NOTE | 2020-04-14 10:25 | RAD REPORT ---
EXAM DESCRIPTION: RAD - Foot Left 3 View - 04/14/2020 9:55 am CLINICAL HISTORY: Pain;Swelling COMPARISON: Foot Left 3 View dated 01/24/2017; Foot Left 2 View dated 12/26/2016 FINDINGS: No fracture, dislocation or periosteal reaction. No acute or destructive bony process. Biju kingsley are osteopenic. Degenerative change present at the first MTP joint seen as slight narrowing of th e joint space along with mild endplate spurring. Patient has a moderate size plantar spur similar to comparison. No air or foreign body seen. There is soft tissue swelling around the ankle joint and over the dorsum of the foot. IMPRESSION: Ankle and dorsal foot soft tissue swelling without air or foreign body. Osteopenic and degenerative change similar to 2017. Moderate-sized plantar spur stable from 2017.
--- NOTE | 2020-04-14 10:26 | RAD REPORT ---
EXAM DESCRIPTION: RAD - Chest Single View - 04/14/2020 9:55 am CLINICAL HISTORY: COUGH COMPARISON: None TECHNIQUE: AP portable chest image was obtained 04/14/2020 9:55 am . FINDINGS: No peripheral mass or consolidation. Interstitial pattern is prominent throughout the lung tena with baseline for the patient unknown. Central vasculature is prominent. Mild cardiomegaly is present. Trachea is midline. No measurable pleural effusion and no pneumothorax. No acute bony abnor mality seen. No acute aortic findings suspected. IMPRESSION: Baseline examination shows prominent heart, vasculature and lung markings. Patient's baseline appearance is unknown. Current findings suggest a mild failure or volume overload. This needs clinical correlation.
[2020-04-14 10:36] LABS: Absolute Lymphocytes (CBC) 0.7 K/uL (0.7-4.9); Basophils % 0.6 % (0-1.3); Lymphocytes % 13.2 % (15.3-44.8); MPV 8.7 fL (7.6-11.3); RBC Red Blood Cell Count 4.08 M/uL (3.86-4.86)
[2020-04-14 10:50] LABS: Potassium 3.1 mmol/L (3.5-5.1)
[2020-04-14 11:28] LABS: Anisocytosis 3+; Blood Morphology Comment NOTED (NOT SEEN); Platelet Estimate ADEQ; Urine White Blood Cell Casts OK
[2020-04-14] MEDS ORDERED: MORPHINE 2 MG/ML SYR IV PRN (11:46)
[2020-04-14] MEDS ORDERED: ACETAMINOPHEN 500 MG TAB PO PRN (11:46)
--- NOTE | 2020-04-14 11:50 | EDPHYS ---
Physician Documentation [facility] Name: Kendal Singh Age: 74 yrs Sex: Female : 1945 Arrival Date: 04/14/2020 Time: 08:59 Bed 6 Private MD: ED Physician Jayden Nicholson HPI: 04/14 09:59 This 74 yrs old Female presents to ER via EMS with complaints of Ankle rn Swelling. 09:59 The patient presents with pain, swelling. rn 09:59 The complaints affect the left ankle. Onset: The symptoms/episode began/occurred 3 rn day(s) ago. Modifying factors: The symptoms are alleviated by elevation of extremity, the symptoms are aggravated by weight bearing, movement. Severity of symptoms: At their worst the symptoms were moderate, in the emergency department the symptoms are unchanged. The patient has experienced a previous episode. Reports non-traumatic left ankle pain and swelling, reports about 2 weeks of bilateral lower ext swelling that had been getting better, has been "walking funny", withe feet turned inward due to swelling, not sure if she hurt ankle, but no fall or direct trauma. Reports has happened once before and diagnosed with gout, same ankle/foot and swelling/pain. no fever. . Historical: - Allergies: 09:04 Codeine; bp - Home Meds: 09:04 losartan Oral [Active]; Ventolin Nebulizer [Active]; Iron CR Oral [Active]; bp - PMHx: 09:04 Asthma; Hypertension; bp - Immunization history:: Adult Immunizations up to date. - Social history:: Smoking status: Patient denies any tobacco usage or history of. - Family history:: not pertinent. - Hospitalizations: : Patient was recently seen at. ROS: 09:59 Constitutional: Negative for fever, chills, and weight loss, Eyes: Negative for injury, rn pain, redness, and discharge, Cardiovascular: Negative for chest pain, palpitations Respiratory: Negative for hemoptysis or pleuritic chest pain, Abdomen/GI: Negative for abdominal pain, nausea, vomiting, diarrhea, and constipation, MS/Extremity: + left ankle pain and swelling Skin: Negative for injury, rash, and discoloration, Neuro: Negative for headache, weakness, numbness, tingling, and seizure. Exam: :59 Constitutional: This is a well developed, well nourished patient who is awake, alert, rn and in no acute distress. Head/Face: Normocephalic, atraumatic. Cardiovascular: Regular rate and rhythm. No pulse deficits. Respiratory: + deep cough, no retractions or wheezing Abdomen/GI: soft, non-tender Skin: Warm, dry with normal turgor. Normal color with no rashes, no lesions, and no evidence of cellulitis. MS/ Extremity: Pulses equal, no cyanosis. Neurovascular intact. + painful ROM left ankle, + swelling worst around left ankle with extension to mid foot, no ecchymosis/redness/warmth. No open wounds. Neuro: Awake and alert, GCS 15, oriented to person, place, time, and situation. Cranial nerves II-XII grossly intact. Motor strength 5/5 in all extremities. Sensory grossly intact. Vital Signs: 09:00 BP 174 / 85; Pulse 88; Resp 20; Temp 97.1; Pulse Ox 97% ; bp 09:07 Temp 98.8(O); ph 10:10 BP 174 / 90; Pulse 91; Resp 18; Pulse Ox 98% on R/A; ph 10:57 BP 161 / 80; Pulse 83; Resp 18; Pulse Ox 95% on R/A; ph 12:38 BP 163 / 84; Pulse 95; Resp 18; Temp 98.2; Pulse Ox 97% on R/A; ph MDM: 09:06 Patient medically screened. rn 11:47 Differential diagnosis: fracture, sprain, arthritis, gout. Data reviewed: vital signs, rn nurses notes, lab test result(s), radiologic studies, plain films, and as a result, I will admit patient. Counseling: I had a detailed discussion with the patient and/or guardian regarding: the historical points, exam findings, and any diagnostic results supporting the discharge/admit diagnosis, lab results, radiology results, the need for further work-up and treatment in the hospital. Response to treatment: the patient's symptoms have mildly improved after treatment, and as a result, I will admit patient. Admission orders: after a detailed discussion of the patient's condition and case, the admit orders are written by me. ED course: Pt's pain not controlled, lives at home alone, cannot ambulate on affected leg, has urinated on herself and bed a couple of times, will admit to [facility] for pain control. . 04/14 09:07 Order name: CBC with Diff; Complete Time: 11:35 rn 04/14 09:07 Order name: Basic Metabolic Panel; Complete Time: 11:22 rn 04/14 09:07 Order name: Procalcitonin; Complete Time: 11:35 rn 04/14 10:39 Order name: CBC Smear Scan; Complete Time: 11:35 EDMS 04/14 11:51 Order name: Vancomycin Level Trough EDMS 04/14 11:51 Order name: Vancomycin Peak EDMS 04/14 11:51 Order name: CBC with Automated Diff EDMS 04/14 11:51 Order name: CBC with Automated Diff EDMS 04/14 11:51 Order name: Comprehensive Metabolic Panel EDMS 04/14 11:51 Order name: Comprehensive Metabolic Panel EDMS 04/14 11:51 Order name: Protime (+INR) EDMS 04/14 11:51 Order name: Protime (+INR) EDMS 04/14 11:51 Order name: PTT, Activated Partial Thromb EDMS 04/14 11:51 Order name: PTT, Activated Partial Thromb EDMS 04/14 09:07 Order name: IV Start; Complete Time: 12:35 rn 04/14 09:07 Order name: XRAY Ankle LEFT 3 view; Complete Time: 10:28 rn 04/14 09:07 Order name: XRAY Foot LEFT 3 View; Complete Time: 10:28 rn 04/14 09:07 Order name: XRAY Chest (1 view); Complete Time: 10:28 rn 04/14 11:51 Order name: CONS Pharmacy Consult EDMS 04/14 11:51 Order name: Regular EDMS 04/14 12:16 Order name: PT-INR aa5 04/14 12:16 Order name: Ptt, Activated aa5 04/14 12:53 Order name: Protime (+INR) EDMS 04/14 12:53 Order name: PTT, Activated Partial Thromb EDMS Administered Medications: 09:18 Drug: Colchicine-Probenecid 2 tabs Route: PO; ph 11:00 Follow up: Response: No adverse reaction ph 10:09 Not Given (Other Intervention Used): Demerol 25 mg IVP once; RASS on ADMIN: Combtv4, ph Very Agttd3, Agttd2, Rstlss1, AlertClm0, Drwsy-1, Lt Sdtn-2, Mod Sdtn-3, Dp Sdtn-4, UnArsble-5 10:09 Drug: Demerol 25 mg Route: IM; Site: right deltoid; ph 10:45 Follow up: Response: No adverse reaction; Pain is decreased; RASS: Alert and Calm (0) ph 12:34 Not Given (Other Intervention Used): Decadron 10 mg IM once ph 12:35 Drug: Decadron - Dexamethasone 10 mg Route: IVP; Site: right upper arm; ph 13:00 Follow up: Response: No adverse reaction ph Disposition: 04/14/20 11:49 Hospitalization ordered by Donny Farmer for Observation. Preliminary diagnosis are Gout, Intractable pain. - Bed requested for Telemetry/MedSurg (observation). - Status is Observation. ph - Condition is Stable. - Problem is new. - Symptoms are unchanged. Signatures: Dispatcher [employer] EDTeodora Daly RN Jayden Johnson MD MD rn Hall, Patricia, RN RN ph Peltier, Brian, RN RN bp Corrections: (The following items were deleted from the chart) 12: 11:49 Hospitalization Ordered by Donny Farmer MD for Observation. Preliminary kl diagnosis is Gout; Intractable pain. Bed requested for Telemetry/MedSurg (observation). Status is Observation. Condition is Stable. Problem is new. Symptoms are unchanged. rn 13:55 12:09 04/14/2020 11:49 Hospitalization Ordered by Donny Farmer MD for Observation. ph Preliminary diagnosis is Gout; Intractable pain. Bed requested for Telemetry/MedSurg (observation). Status is Observation. Condition is Stable. Problem is new. Symptoms are unchanged. kl
--- NOTE | 2020-04-14 11:50 | ER ---
Nurse's Notes [facility] Name: Kendal Singh Age: 74 yrs Sex: Female : 1945 Arrival Date: 04/14/2020 Time: 08:59 Bed 6 Private MD: Diagnosis: Gout;Intractable pain Presentation: 04/14 09:00 Chief complaint: EMS states: LEFT ANKLE PAIN AND SWELLING, SPONTANEOUS x3 DAYS, DENIES bp TRAUMA. Coronavirus screen: At this time, the client does not indicate any symptoms associated with coronavirus-19. Ebola Screen: No symptoms or risks identified at this time. Initial Sepsis Screen: Does the patient meet any 2 criteria? No. Patient's initial sepsis screen is negative. Does the patient have a suspected source of infection? No. Patient's initial sepsis screen is negative. Risk Assessment: Do you want to hurt yourself or someone else? Patient reports no desire to harm self or others. Onset of symptoms is unknown. Care prior to arrival: Glucose check: 133. 09:00 Method Of Arrival: EMS: [facility] bp 09:00 Acuity: VALERIY 3 bp Triage Assessment: 09:04 General: Appears in no apparent distress. uncomfortable, obese, Behavior is bp cooperative, appropriate for age, restless. Pain: Complains of pain in left lateral ankle. EENT: No deficits noted. Neuro: No deficits noted. Cardiovascular: No deficits noted. Respiratory: No deficits noted. GI: No signs and/or symptoms were reported involving the gastrointestinal system. : No signs and/or symptoms were reported regarding the genitourinary system. Derm: No deficits noted. Musculoskeletal: Swelling. Historical: - Allergies: 09:04 Codeine; bp - Home Meds: 09:04 losartan Oral [Active]; Ventolin Nebulizer [Active]; Iron CR Oral [Active]; bp - PMHx: 09:04 Asthma; Hypertension; bp - Immunization history:: Adult Immunizations up to date. - Social history:: Smoking status: Patient denies any tobacco usage or history of. - Family history:: not pertinent. - Hospitalizations: : Patient was recently seen at. Screenin:07 Abuse screen: Denies threats or abuse. Denies injuries from another. Nutritional ph screening: No deficits noted. Tuberculosis screening: No symptoms or risk factors identified. Fall Risk None identified. Assessment: 09:08 General: Appears in no apparent distress. uncomfortable, obese, Behavior is ph cooperative, appropriate for age, anxious, Denies fever, feeling ill. Pain: Complains of pain in left lateral ankle and lateral aspect of left foot. Neuro: Level of Consciousness is awake, alert, obeys commands, Oriented to person, place, time, situation. Cardiovascular: Capillary refill < 3 seconds in bilateral fingers Patient's skin is warm and dry. Respiratory: Reports cough that is Airway is patent Respiratory effort is even, unlabored, Respiratory pattern is regular, symmetrical. GI: No signs and/or symptoms were reported involving the gastrointestinal system. Derm: Skin is intact, Skin is pink, warm \T\ dry. Musculoskeletal: Circulation, motion, and sensation intact. Range of motion: intact in all extremities, Swelling present in left foot and left ankle. 10:01 Reassessment: Patient appears in no apparent distress at this time. Patient and/or ph family updated on plan of care and expected duration. Pain level reassessed. Patient is alert, oriented x 3, equal unlabored respirations, skin warm/dry/pink. Unable to obtain IV access after multiple attempts, called lab for blood draw. 11:00 Reassessment: Patient appears in no apparent distress at this time. Patient and/or ph family updated on plan of care and expected duration. Pain level reassessed. Patient is alert, oriented x 3, equal unlabored respirations, skin warm/dry/pink. Vital Signs: 09:00 BP 174 / 85; Pulse 88; Resp 20; Temp 97.1; Pulse Ox 97% ; bp 09:07 Temp 98.8(O); ph 10:10 BP 174 / 90; Pulse 91; Resp 18; Pulse Ox 98% on R/A; ph 10:57 BP 161 / 80; Pulse 83; Resp 18; Pulse Ox 95% on R/A; ph 12:38 BP 163 / 84; Pulse 95; Resp 18; Temp 98.2; Pulse Ox 97% on R/A; ph ED Course: 08:59 Patient arrived in ED. bp 09:01 Triage completed. bp 09:06 Jayden Nicholson MD is Attending Physician. rn 09:07 Patient has correct armband on for positive identification. Bed in low position. Call ph light in reach. Side rails up X2. Pulse ox on. NIBP on. Door closed. Noise minimized. Warm blanket given. 09:07 Arm band placed on Patient placed in an exam room, on a stretcher, on pulse oximetry. ph 09:11 Margo Price, RN is Primary Nurse. ph 09:55 XRAY Ankle LEFT 3 view In Process Unspecified. EDMS 09:55 XRAY Foot LEFT 3 View In Process Unspecified. EDMS 09:55 XRAY Chest (1 view) In Process Unspecified. EDMS 11:49 Donny Farmer MD is Hospitalizing Provider. rn 12:10 Inserted saline lock: 22 gauge in right upper arm, using aseptic technique. aa5 12:35 No provider procedures requiring assistance completed. Patient admitted, IV remains in ph place. Administered Medications: 09:18 Drug: Colchicine-Probenecid 2 tabs Route: PO; ph 11:00 Follow up: Response: No adverse reaction ph 10:09 Not Given (Other Intervention Used): Demerol 25 mg IVP once; RASS on ADMIN: Combtv4, ph Very Agttd3, Agttd2, Rstlss1, AlertClm0, Drwsy-1, Lt Sdtn-2, Mod Sdtn-3, Dp Sdtn-4, UnArsble-5 10:09 Drug: Demerol 25 mg Route: IM; Site: right deltoid; ph 10:45 Follow up: Response: No adverse reaction; Pain is decreased; RASS: Alert and Calm (0) ph 12:34 Not Given (Other Intervention Used): Decadron 10 mg IM once ph 12:35 Drug: Decadron - Dexamethasone 10 mg Route: IVP; Site: right upper arm; ph 13:00 Follow up: Response: No adverse reaction ph Outcome: 11:49 Decision to Hospitalize by Provider. rn 13:55 Patient left the ED. ph 13:55 Admitted to Med/surg accompanied by tech, via stretcher, with chart. ph 13:55 Condition: good Signatures: Dispatcher [employer] EDMS Jayden Nicholson MD MD rn Calderon, Audri, RN RN aa5 Margo Price, RN RN Peewee Arceo RN RN bp
[2020-04-14] MEDS ORDERED: dexAMETHasone 10 MG/ML VIAL ONE (12:39)
[2020-04-14 12:53] LABS: Protime INR 1.23
[2020-04-14] MEDS ORDERED: COLCHICINE 0.6 MG TAB PO SCH (14:00)
[2020-04-14] MEDS ORDERED: HYDROCORTISONE SUC 100 MG INJ IV ONE (14:00)
[2020-04-14] MEDS: NA CHLORIDE 0.9% 1,000 ML IV SCH (14:05)
[2020-04-14 14:26] VITALS: BMI 31.7
[2020-04-14] MEDS: ONDANSETRON 4 MG/2 ML VIAL IV PRN (14:36)
[2020-04-14] MEDS ORDERED: VANCOMYCIN 1.25 GM in NA CHLORIDE 0.9% 250 ML IVPB SCH (15:00)
[2020-04-14 16:01] VITALS: O2SAT 98
[2020-04-14] MEDS: VANCOMYCIN 1.5 GM in NA CHLORIDE 0.9% 500 ML IVPB SCH (16:46)
[2020-04-14] MEDS: COLCHICINE 0.6 MG TAB PO SCH (16:47)
[2020-04-14] MEDS ORDERED: METOPROLOL TARTRATE 5 MG/5 ML INJ IV STA (17:02)
[2020-04-14 18:00] LABS: ALT/SGPT 18 U/L (12-78); AST/SGOT 24 U/L (15-37); Albumin 3.1 g/dL (3.4-5.0); Alkaline Phosphatase 147 U/L (45-117); BUN Blood Urea Nitrogen 11 mg/dL (7-18); Bicarbonate 23 mmol/L (21-32); Bilirubin Total 0.8 mg/dL (0.2-1.0); Glucose Level 239 mg/dL (74-106); Potassium 3.4 mmol/L (3.5-5.1); Protein, Total 7.2 g/dL (6.4-8.2); Sodium Level 140 mmol/L (136-145); Troponin I < 0.02 ng/mL (0.0-0.045)
[2020-04-14] MEDS ORDERED: AMLODIPINE 5 MG TAB PO ONE (18:00)
[2020-04-14] MEDS: METOPROLOL TAR 50 MG TAB PO SCH (18:24)
[2020-04-14] MEDS ORDERED: WATER FOR INJ,STERILE 10 ML ONE (20:17)
[2020-04-14] MEDS: HYDROCORTISONE SUC 100 MG INJ IV SCH (20:42)
[2020-04-14] MEDS: MELATONIN 5 MG TABLET PO PRN (21:56)
[2020-04-15] MEDS: COLCHICINE 0.6 MG TAB PO SCH ×4 (00:07→16:50)
[2020-04-15] MEDS: NA CHLORIDE 0.9% 1,000 ML IV SCH ×2 (03:05→14:40)
[2020-04-15 05:58] LABS: Absolute Lymphocytes (CBC) 0.6 K/uL (0.7-4.9); Basophils % 0.3 % (0-1.3); Lymphocytes % 8.5 % (15.3-44.8); RBC Red Blood Cell Count 4.15 M/uL (3.86-4.86)
[2020-04-15 06:02] LABS: Protime INR 1.17
[2020-04-15 06:08] LABS: Albumin 2.8 g/dL (3.4-5.0); Bilirubin Total 0.5 mg/dL (0.2-1.0); Potassium 3.3 mmol/L (3.5-5.1)
[2020-04-15] MEDS: METOPROLOL TAR 50 MG TAB PO SCH ×2 (06:19→16:51)
[2020-04-15] MEDS: HYDROMORPHONE HCL 0.5 MG/0.5 ML INJ IV PRN ×2 (09:14→13:27)
[2020-04-15] MEDS: HYDROCORTISONE SUC 100 MG INJ IV SCH ×2 (09:15→21:37)
[2020-04-15] MEDS: ONDANSETRON 4 MG/2 ML VIAL IV PRN ×2 (09:25→13:29)
--- NOTE | 2020-04-15 13:55 | P.HP ---
Certification for Inpatient Patient admitted to: Inpatient With expected LOS: >2 Midnights Patient will require the following post-hospital care: None Practitioner: I am a practitioner with admitting privileges, knowledge of patient current condition, hospital course, and medical plan of care. Services: Services provided to patient in accordance with Admission requirements found in Title 42 Section 412.3 of the Code of Federal Regulations Patient History Date of Service: 04/14/20 Reason for admission: Inflammatory arthritis versus infectious arthritis History of Present Illness: Patient is a 74-year-old female came to the hospital with pain on her lower extremities. She say she was unable to move her feet at all because they were so swollen. She has had erythema and tenderness. The feet were warm as well. She does not think she hit her feet on anything. She has never been told she has gouty arthropathy. At this time, patient be admitted to the hospital for further evaluation. I will go ahead and start patient on IV antibiotic therapy. And I will also go ahead and start IV steroids and colchicine for possible gouty arthropathy. Patient's pain is quite significant aware she is not even able to mobilize her left foot. Patient will need to be admitted to the hospital for further evaluation. Allergies codeine [Codeine] Allergy (Intermediate, Verified 04/14/20 14:12) Nausea/Vomiting Home Medications: Albuterol Inhaler [Ventolin Inhaler*] 2 puff PO PRN 04/14/20 Ferrous Sulfate 325 mg PO INPT 04/14/20 Losartan Potassium [Cozaar] 50 mg PO DAILY 04/14/20 Pantoprazole [Protonix Tab*] 40 mg PO DAILY 04/14/20 - Past Medical/Surgical History Diabetic: No -: Hypertension -: asthma -: Tonsillectomy -: Hysterectomy -: Bilateral feet osteoarthritis -: cellulitis - Family History mom Medical History: Heart disease, Stroke dad Medical History: Stroke - Social History Smoking Status: Former smoker Alcohol use: No CD- Drugs: No Caffeine use: No Place of Residence: Home Review of Systems 10-point ROS is otherwise unremarkable Physical Examination - Vital Signs Temperature: 96.6 F Blood Pressure: 184/81 Pulse: 71 Respirations: 18 Pulse Ox (%): 94 - Physical Exam General: Alert, In no apparent distress, Oriented x3 HEENT: Atraumatic, PERRLA, Mucous membr. moist/pink, EOMI, Sclerae nonicteric Neck: Supple, 2+ carotid pulse no bruit, No LAD, Without JVD or thyroid abnormal ity Respiratory: Clear to auscultation bilaterally, Normal air movement Cardiovascular: Regular rate/rhythm, Normal S1 S2, No murmurs Gastrointestinal: Normal bowel sounds, Soft and benign, Non-distended, No tenderness Musculoskeletal: No clubbing, Swelling, Erythema, Tenderness, Warmth Integumentary: Tenderness/swelling, Erythema, Warmth Neurological: Normal speech, Normal tone, Sensation intact, Cranial nerves 3-12 intact, Normal affect, Abnormal gait, Abnormal strength Lymphatics: No axilla or inguinal lymphadenopathy Assessment & Plan - Problems (Diagnosis) (1) Inflammatory arthritis Current Visit: Yes Status: Acute (2) Septic arthritis Current Visit: Yes Status: Acute (3) GI bleeding Current Visit: Yes Status: Acute (4) Dyspnea as manifestation of blood transfusion reaction Current Visit: Yes Status: Acute - Plan Plan: 1. IV antibiotic therapy 2. IV steroids and IV colchicine 3. Pain control 4. Physical therapy evaluation 5. Strict blood pressure and blood sugar control 6. Monitor H&H closely 7. GI and DVT prophylaxis Discharge Plan: Home Plan to discharge in: Greater than 2 days - Advance Directives Does patient have a Living Will: Yes Does patient have a Durable POA for Healthcare: Yes - Code Status/Comfort Care Code Status Assessed: Yes Code Status: Full Code Critical Care: No Time Spent Managing PTS Care (In Minutes): 45
[2020-04-15] MEDS ORDERED: HYDRALAZINE HCL 20 MG/ML VIAL IV PRN (13:59)
[2020-04-15] MEDS ORDERED: FUROSEMIDE 20 MG/ 2ML VIAL IV ONE (13:59)
[2020-04-15] MEDS: VANCOMYCIN 1.5 GM in NA CHLORIDE 0.9% 500 ML IVPB SCH (16:50)
[2020-04-15] MEDS ORDERED: WATER FOR INJ,STERILE 10 ML ONE (20:01)
[2020-04-15] MEDS: LOSARTAN POTASSIUM 50 MG TABLET PO SCH (21:37)
[2020-04-15] MEDS: MELATONIN 5 MG TABLET PO PRN (21:37)
[2020-04-16] MEDS: COLCHICINE 0.6 MG TAB PO SCH ×3 (00:18→12:23)
[2020-04-16] MEDS: ONDANSETRON 4 MG/2 ML VIAL IV PRN (00:20)
[2020-04-16] MEDS: HYDROMORPHONE HCL 0.5 MG/0.5 ML INJ IV PRN (00:20)
[2020-04-16] MEDS: NA CHLORIDE 0.9% 1,000 ML IV SCH (04:00)
[2020-04-16] MEDS: METOPROLOL TAR 50 MG TAB PO SCH (05:19)
[2020-04-16] MEDS: LOSARTAN POTASSIUM 50 MG TABLET PO SCH (08:22)
[2020-04-16] MEDS: HYDROCORTISONE SUC 100 MG INJ IV SCH (08:23)
[2020-04-16 11:52] VITALS: BP 161/75; TEMP 96.8
--- NOTE | 2020-04-16 12:16 | P.PN ---
Subjective Date of Service: 04/15/20 Still with pain on ambulation. Overall feeling better. Anticipate discharge home in the next 48 hr. Review of Systems 10-point ROS is otherwise unremarkable Physical Examination - Vital Signs Temperature: 96.8 F Blood Pressure: 161/75 Pulse: 68 Respirations: 18 Pulse Ox (%): 93 - Physical Exam General: Alert, In no apparent distress, Oriented x3 Respiratory: Clear to auscultation bilaterally, Normal air movement Cardiovascular: Regular rate/rhythm, Normal S1 S2 Gastrointestinal: Normal bowel sounds, No tenderness Musculoskeletal: Erythema, Tenderness (Of the left ankle), Warmth Neurological: Normal speech, Normal tone, Normal affect Lymphatics: No axilla or inguinal lymphadenopathy - Studies Medications List Reviewed: Yes Assessment & Plan - Problems (Diagnosis) (1) Inflammatory arthritis Current Visit: Yes Status: Acute (2) Septic arthritis Current Visit: Yes Status: Acute (3) GI bleeding Current Visit: Yes Status: Acute (4) Dyspnea as manifestation of blood transfusion reaction Current Visit: Yes Status: Acute - Plan Plan: Continue with plan of care as mentioned below 1. IV antibiotic therapy 2. IV steroids and IV colchicine 3. Pain control 4. Physical therapy evaluation 5. Strict blood pressure and blood sugar control 6. Monitor H&H closely 7. GI and DVT prophylaxis Discharge Plan: Home Plan to discharge in: 48 Hours - Advance Directives Does patient have a Living Will: Yes Does patient have a Durable POA for Healthcare: Yes - Code Status/Comfort Care Code Status: Full Code Critical Care: No Time Spent Managing PTS Care (In Minutes): 30
--- NOTE | 2020-04-16 13:44 | P.DS ---
Discharge Date: 04/16/20 Disposition: ROUTINE DISCHARGE Discharge Condition: GOOD Reason for Admission: Inflammatory arthritis versus infectious arthritis - Problems (1) Inflammatory arthritis Current Visit: Yes Status: Acute (2) Septic arthritis Current Visit: Yes Status: Acute (3) GI bleeding Current Visit: Yes Status: Acute (4) Dyspnea as manifestation of blood transfusion reaction Current Visit: Yes Status: Acute Brief History of Present Illness: Patient is a 74-year-old female came to the hospital with pain on her lower extremities. She say she was unable to move her feet at all because they were so swollen. She has had erythema and tenderness. The feet were warm as well. She does not think she hit her feet on anything. She has never been told she has gouty arthropathy. At this time, patient be admitted to the hospital for further evaluation. I will go ahead and start patient on IV antibiotic therapy. And I will also go ahead and start IV steroids and colchicine for possible gouty arthropathy. Patient's pain is quite significant aware she is not even able to mobilize her left foot. Patient will need to be admitted to the hospital for further evaluation. Hospital Course: Patient's symptoms are improved. Patient's work in a little bit with physical therapy ambulating. She is still having some pain. Will send her home with prednisone and colchicine along with antibiotics. Outpatient follow with PCP in 1-2 weeks. Vital Signs/Physical Exam: Temp Pulse Resp BP Pulse Ox 96.8 F 68 18 161/75 H 93 04/16/20 12:15 04/16/20 12:15 04/16/20 12:15 04/16/20 12:15 04/16/20 12:15 General: Alert, In no apparent distress, Oriented x3 Laboratory Data at Discharge: WBC 7.5 K/uL (4.3-10.9) D 04/15/20 05:34 Hgb 10.1 g/dL (12.0-15.0) L 04/15/20 05:34 Hct 32.0 % (36.0-45.0) L 04/15/20 05:34 Plt Count 147 K/uL (152-406) L 04/15/20 05:34 PT 13.8 SECONDS (9.5-12.5) H 04/15/20 05:34 INR 1.17 04/15/20 05:34 APTT 28.1 SECONDS (24.3-36.9) 04/15/20 05:34 Sodium 142 mmol/L (136-145) 04/15/20 05:34 Potassium 3.3 mmol/L (3.5-5.1) L 04/15/20 05:34 BUN 16 mg/dL (7-18) 04/15/20 05:34 Creatinine 0.89 mg/dL (0.55-1.3) 04/15/20 05:34 Glucose 175 mg/dL (74-106) H 04/15/20 05:34 Total Bilirubin 0.5 mg/dL (0.2-1.0) 04/15/20 05:34 AST 26 U/L (15-37) 04/15/20 05:34 ALT 16 U/L (12-78) 04/15/20 05:34 Alkaline Phosphatase 149 U/L (45-117) H 04/15/20 05:34 Troponin I < 0.02 ng/mL (0.0-0.045) 04/14/20 17:22 Home Medications: Albuterol Inhaler [Ventolin Inhaler*] 2 puff PO PRN 04/14/20 Ferrous Sulfate 325 mg PO INPT 04/14/20 Losartan Potassium [Cozaar*] 50 mg PO DAILY 04/14/20 Pantoprazole [Protonix Tab*] 40 mg PO DAILY 04/14/20 Allopurinol 300 mg PO DAILY #30 tablet 04/16/20 Colchicine [Colcrys *] 0.6 mg PO BID #10 tab 04/16/20 Ondansetron [Zofran] 4 mg PO Q6H PRN #20 tab 04/16/20 predniSONE [Prednisone*] 20 mg PO BID #10 tab 04/16/20 New Medications: Allopurinol 300 mg PO DAILY #30 tablet Colchicine [Colcrys *] 0.6 mg PO BID #10 tab predniSONE [Prednisone*] 20 mg PO BID #10 tab Ondansetron [Zofran] 4 mg PO Q6H PRN #20 tab PRN Reason: Nausea / Vomiting Patient Discharge Instructions: OK TO DC IV AND DC HOME. FOLLOW-UP WITH PRIMARY CARE PROVIDER IN 1-2 WEEKS. RETURN TO THE ER IF symptoms worsen. CALL or TEXT DR. GUZMAN AT [phone] IF ANY QUESTIONS REGARDING HOSPITAL STAY. PLEASE CALL THE FLOOR AT [phone] IF ANY MEDICATION OR NURSING QUESTIONS. Diet: Regular Activity: Fall precautions Time spent managing pt's care (in minutes): 25
== END 2020-04-16 14:32 | disposition home or self-care (01) | DRG 549 ==
LOC: ER 08:57 → ERHOLD 11:47 → 2ND 13:15
PROVIDERS: ADMIT Hospitalist; ATTEND Hospitalist
DX: M00.9 Pyogenic arthritis, unspecified (principal); K92.2 Gastrointestinal hemorrhage, unspecified; J45.909 Unspecified asthma, uncomplicated; I10 Essential (primary) hypertension; R06.00 Dyspnea, unspecified; Z88.5 Allergy status to narcotic agent; Z79.899 Other long term (current) drug therapy; Z90.710 Acquired absence of both cervix and uterus; Z87.891 Personal history of nicotine dependence; Z11.59 Encounter for screening for other viral diseases
CPT/HCPCS: 36415; 71045; 80048; 80053; 84145; 84484; 85025; 85610; 85730; 96372; 96374; 97110; 97116; 97161; 97530; 99285; J0360; J1100; J1170; J1720; J1940; J2175; J2270; J2405; J3370; J7030; J7040; U0002

== ENCOUNTER 2021-07-26 20:58 | Inpatient (IN) | payer OTHER ==
--- OUTSIDE RECORDS SUMMARY | 2021-07-26 21:03 | XMS REPORT | Continuity of Care Document ---
:1945 Author Organization [facility] t Address [address] [place] [address] Care Team Providers Name Role Phone Ajibade_O_AH Attending Clinician Unavailable Yonas Vincent MD Attending Clinician Real SANCHEZ, A Attending Clinician Unavailable Troy East Attending Clinician Jett ULLOA Attending Clinician Troy LEE Attending Clinician Unavailable Ige-Presley_J_ILEANA Attending Clinician Unavailable Consuelo_Parth_ILEANA Admitting Clinician Unavailable Jett ULLOA Admitting Clinician Ige-Presley_J_ILEANA Admitting Clinician Unavailable Payers Payer Name Policy Type Policy Number Effective Date Expiration Date S [facility] OF [place] - [id number] 2019 [place] 00:00:00 (MEDICARE REPLACEMENT/ADVANT AGE - HMO) Problems Condition Condition Condition Status Onset Resolution Last Treating Co mments Source Name Details Category Date Date Treatment Clinician Date GIB GIB Disease Active Univers (gastroint (gastroint 03-28 it y of estinal estinal 00:00: [place] bleeding) bleeding) 00 [facility] Branch Gastrointe Gastrointe Disease Active Overview : Univers stinal stinal 03-27 Added ity of hemorrhage hemorrhage 00:00: automatic [place] , , 00 ally from Medical unspecifie unspecifie request B herb d layne for gastrointe gastrointe surgery stinal stinal [id number] hemorrhage hemorrhage type type Allergies, Adverse Reactions, Alerts Allergy Allergy Status Severity Reaction(s) Onset Inactive Treating Comm ents Source Name Type Date Date Clinician CODEINE DRUG Active N/V 2019- Univers INGREDI 8-08 ity of 00:00: [place] 00 Medical Branch Codeine Propensi Active Nausea Univers ty to and/or 08 ity of adverse Vomiting 00:00: [place] reaction 00 Medical s Branch Social History Social Habit Start Date Stop Date Quantity Comments Source Sex Assigned At [facility] Medical Branch Exposure to Not sure [facility] SARS-CoV-2 (event) Medica l Branch Cigarettes smoked 2020-04-01 2020-04-01 [facility] current (pack per 00:00:00 00:00:00 Medical Branch day) - Reported Cigarette pack-years 2020-04-01 2020-04-01 [facility] 00:00:00 00:00:00 Medical Branch Alcohol intake 2020-04-01 2020-04-01 [facility] 00:00:00 00:00:00 Medical Branch Alcohol Comment 2020-03-28 2020-03-28 [facility] 00:00:00 00:00:00 Medical Branch Smoking Status Start Date Stop Date Source Current every day smoker 2020-04-01 00:00:00 [facility] Medications Ordered Filled Start Stop Current Ordering Indication Dosage Frequency Signature Comments Components Source Medication Medication Date Date Medication? Clinician (SIG) Name Name fluticasone Yes 1{puff} Inhale 1 Univers propion/jorden 8-14 Puff as ity o f meterol 22:30[place] (ADVAIR 17 needed for Medica l DISKUS asthma/bro Branch INHALE) [facility] ALBUTEROL Yes 1{puff} Inhale 1 U nivers INHALE 8-14 Puff. As ity of 22:30: needed for [place] [address] asthma/bro Medical nchitis Branch fluticasone Yes 1{puff} Inhale 1 Univers propion/jorden 8-14 Puff as [place]y o f meterol 22:30: [place]. [place] (ADVAIR 17 needed for Medica l DISKUS asthma/bro Branch INHALE) nchitis ALBUTEROL Yes 1{puff} Inhale 1 U nivers INHALE 8-14 Puff. As ity of 22:30: needed for [place] [address] asthma/bro [facility] fluticasone Yes 1{puff} Inhale 1 Univers propion/jorden 8-14 Puff as ity o f meterol 22:30: [place]. [place] (ADVAIR 17 needed for Medica l DISKUS asthma/bro Branch INHALE) [facility] ALBUTEROL Yes 1{puff} Inhale 1 U nivers INHALE 8-14 Puff. As ity of 22:30: needed for [place] [address] asthma/bro [facility] fluticasone Yes 1{puff} Inhale 1 Univers propion/jorden 8-14 Puff as ity o f meterol 22:30: [place]. [place] (ADVAIR 17 needed for Medica l DISKUS asthma/bro Branch INHALE) [facility] ALBUTEROL Yes 1{puff} Inhale 1 U nivers INHALE 8-14 Puff. As ity of 22:30: needed for [place] [address] asthma/[facility] losartan 2020- No 100mg Take 100 Uni vers 100 mg 8-14 08-14 mg by ity of tablet 18:57: 00:00 mouth [place] 47 :00 daily. [facility] aspirin 81 0 2020- No 81mg Take 81 mg Univers mg chewable 8-14 08-14 by mouth ity of tablet 18:57: 00:00 daily. [place] 47 :00 [facility] melatonin 2019-0 2020- No 3mg 3 mg, Univer s (MELATIN) 8- 08-14 Oral, ONCE ity of tablet 3 mg 07:30: 06:38 NOW, 1 Joseph as 00 :00 dose, Fri Medical 04/02/20 at Branch 0230, Routine pantoprazol Yes [id number] 40mg Take 1 Univers e 40 mg EC 8-14 tablet by ity of tablet 00:00: mouth [place] 00 daily. Medical Branch sennosides 2019-0 Yes [id number] 8.6mg Take 1 Univers 8.6 mg 8-14 tablet by ity of tablet 00:00: mouth [place] 00 daily. Medical Branch ferrous 2019-0 Yes [id number] 325mg Take 1 Un kimmy sulfate 8-14 capsule by ity of (IRON) 325 00:00: mouth [place] mg (65 mg 00 every Medical iron) SR other day. Branc h capsule pantoprazol 2020-0 Yes [id number] 40mg Take 1 Univers e 40 mg EC 8-14 tablet by ity of tablet 00:00: mouth [place] 00 daily. [facility] Branch sennosides 2020-0 Yes [id number] 8.6mg Take 1 Univers 8.6 mg 8-14 tablet by ity of tablet 00:00: mouth [place] 00 daily. [facility] Branch ferrous 2020-0 Yes [id number] 325mg Take 1 Un kimmy sulfate 8-14 capsule by ity of (IRON) 325 00:00: mouth [place] mg (65 mg 00 every Medical iron) SR other day. Branc h capsule pantoprazol 2020-0 Yes [id number] 40mg Take 1 Univers e 40 mg EC 8-14 tablet by ity of tablet 00:00: mouth [place] 00 daily. [facility] sennosides 2020-0 Yes [id number] 8.6mg Take 1 Univers 8.6 mg 8-14 tablet by ity of tablet 00:00: mouth [place] 00 daily. [facility] ferrous 2020-0 Yes [id number] 325mg Take 1 Un kimmy sulfate 8-14 capsule by ity of (IRON) 325 00:00: mouth [place] mg (65 mg 00 every Medical iron) SR other day. Branc h capsule pantoprazol 2019-0 Yes [id number] 40mg Take 1 Univers e 40 mg EC 8-14 tablet by ity of tablet 00:00: mouth [place] 00 daily. [facility] sennosides 2020-0 Yes [id number] 8.6mg Take 1 Univers 8.6 mg 8-14 tablet by ity of tablet 00:00: mouth [place] 00 daily. [facility] ferrous 2020-0 Yes [id number] 325mg Take 1 Un kimmy sulfate 8-14 capsule by ity of (IRON) 325 00:00: mouth [place] mg (65 mg 00 every Medical iron) SR other day. Branc h capsule sennosides 2020-0 Yes 8.6mg 8.6 mg, Uni vers (SENOKOT) 8-13 Oral, ity of tablet 8.6 00:00: DAILY, [place] mg 00 First dose Medical on Sun03/31/20 at 1900, Until Discontinu ed, Routine iron 2020-0 2020- No 25mg 25 mg, IV Univers dextran 03-31 Piggyback, ity o f (INFED) 25 20:30: 00:05 ONCE, 1 Joseph as mg in NaCl 00 :00 dose, Sun Medi silvina 0.9% (NS) 03/31/20 at Bran ch 100 mL IV 1530, 100 piggyback mL iron 2020-0 2020- No 1000mg 1,000 mg, Unive rs dextran 03-31 IV ity of (INFED) 20:30: 05:04 Infusion, [place] 1,000 mg in 00 :00 ONCE, 1 Medic al NaCl 0.9% dose, Sun Branc h (NS) 500 mL 03/31/20 at IV infusion 1530, 500 mL pantoprazol 2020-0 Yes 40mg 40 mg, Univ ers e 03-31 Oral, ity of (PROTONIX) 14:00: DAILY, [place] EC tablet 00 First dose Medi silvina 40 mg on Sun Branch 03/31/20 at 0900, Until Discontinu ed, Routine peg-electro 2020-0 Yes 2000mL 2,000 mL, Univers lyte soln 8-11 Oral, ity of (GOLYTELY) 09:00: PRE-PROCED [place] 236-22.74-6 00 URE ONCE, Med ical .74 -5.86 1 dose, Branch gram Starting solution Tue 2,000 mL 03/30/20 at 0400, Until Discontinu ed, Routine, Bowel Prep, Bowel Prep for Colonoscop y peg-electro 2020-0 Yes 2000mL 2,000 mL, Univers lyte soln 8-10 Oral, ity of (GOLYTELY) 23:47: PRE-PROCED [place] 236-22.74-6 13 URE ONCE, Med ical .74 -5.86 1 dose, Branch gram Starting solution Mon 2,000 mL 03/29/20 at 1847, Until Discontinu ed, Routine, Bowel Prep, Colonoscop y ondansetron 2020-0 Yes 4mg 4 mg, Slow Univers (ZOFRAN 8-10 IV Push, ity of (PF)) 23:47: Q6HPRN, [place] injection 4 13 Starting Medi silvina mg Mon Branch 03/29/20 at 1847, Until Discontinu ed, Routine, Nausea and Vomiting (N/V) bisacodyL 2020-0 2020- No 10mg 10 mg, Unive rs (DULCOLAX) 03-29 Oral, ity of tablet 10 23:47: 10:51 PRE-PROCED [place] mg 13 :00 URE ONCE, Medical 1 dose, Branch Starting 03/29/20 at 1847, Until Discontinu ed, Routine, Bowel Prep, Colonoscop y bisacodyL 2020-0 2020- No 10mg 10 mg, Unive rs (DULCOLAX) 03-29 Oral, ity of tablet 10 23:47: 02:31 PRE-PROCED [place] mg 13 :00 URE ONCE, Medical 1 dose, Branch Starting 03/29/20 at 1847, Until Discontinu ed, Routine, Bowel Prep, Colonoscop y peg-electro 2020-0 2020- No 2000mL 2,000 mL, Univers lyte soln 03-29 Oral, ity of (GOLYTELY) 12:34: 18:23 PRE-PROCED [place] [id number] 12 :00 URE ONCE, Med ical .74 -5.86 1 dose, Branch gram Starting solution Mon 2,000 mL 03/29/20 at 0734, Until Discontinu ed, Routine, Bowel Prep, Colonoscop y melatonin 2020-0 Yes 3mg 3 mg, Univers (MELATIN) 810 Oral, QHS, ity of tablet 3 mg 04:15: First dose [place] 00 (after Medical last Branch modificati on) on 03/28/20 at 2315, Until Discontinu ed, Routine peg-electro 2020-0 2020- No 2000mL 2,000 mL, Univers lyte soln 03-28 Oral, ity of (GOLYTELY) 22:30: 01:59 PRE-PROCED [place] [id number] 00 :00 URE ONCE, Med ical .74 -5.86 1 dose, Branch gram Starting solution [place] 03/28/20 2,000 mL at 1730, Until Discontinu ed, Routine, Bowel Prep, Colonoscop y peg-electro 2020-0 2020- No 2000mL 2,000 mL, Univers lyte soln 03-28 Oral, ity of (GOLYTELY) 21:56: 09:35 PRE-PROCED [place] [id number] 00 :00 URE ONCE, Med ical .74 -5.86 1 dose, Branch gram Starting solution [place] 03/28/20 2,000 mL at 1656, Until Discontinu ed, Routine, Bowel Prep, Bowel Prep for Colonoscop y Fluticasone 2020-0 Yes 1{puff} 1 Puff, Univers -Salmeterol 03-28 Inhalation it y of (ADVAIR) 10:00: , [id number], [place] as 100-50 52 Starting Medical mcg/dose 03/28/20 Branc h inhalation at 0500, disk 1 Puff Until Discontinu ed, wheezing acetaminoph 2019-0 Yes 650mg 650 mg, Un kimmy en 03-28 Oral, ity of (TYLENOL) 09:54: Q6HPRN, [place] tablet 650 04 Starting Medic al mg [place] 03/28/20 Branch at 0454, Until Discontinu ed, Routine, Pain (scale 1-3) albuterol 2019-0 Yes 2.5mg 2.5 mg, Univ ers (PROVENTIL) 03-28 Inhalation it y of 2.5 mg /3 09:51: , Q4HPRN, [place] mL (0.083 13 Starting Medica l %) [place] 03/28/20 Branch nebulizer at 0451, solution Until 2.5 mg Discontinu ed, Routine, Shortness of Breath, Wheezing pantoprazol 2019-0 2020- No 8mg/h 8 mg/hr U nivers e 03-28 (50 ity of (PROTONIX) 06:15: 11:37 mL/hr), IV [place] 80 mg in 00 :55 Infusion, Medica l NaCl 0.9% CONTINUOUS Bran ch (NS) 500 mL , Starting infusion [place] 03/28/20 at 0115 pantoprazol 2019-0 2020- No 80mg 80 mg, IV Univers e 03-28 Push, ity of (PROTONIX) 06:15: 05:46 ONCE, 1 [place] as 80 mg in 00 :00 dose, Sun Medica l NaCl 0.9% 03/28/20 at Branc h (NS) 20 mL 0115, 20 syringe mL diclofenac 2020- No TAKE 1 Univ ers (VOLTAREN) 12-13 08-14 TABLET BY ity of 75 mg EC 00:00: 00:00 MOUTH [place] tablet 00 :00 TWICE A Medical DAY Branch Vital Signs Vital Name Observation Time Observation Value Comments Source Systolic blood 2020-04-02 16:59:00 163 mm[Hg] Univer sity of pressure [facility] Diastolic blood 2020-04-02 16:59:00 79 mm[Hg] Unive rsity of pressure [facility] Heart rate 2020-04-02 16:59:00 91 /min [facility] Body temperature 2020-04-02 16:59:00 36.5 Ivania [facility] Respiratory rate 2020-04-02 16:59:00 18 /min [facility] Oxygen saturation in 2020-04-02 16:59:00 97 /min [facility] Arterial blood by [facility] Pulse oximetry [place] Body weight 2020-03-30 10:00:00 90.992 kg [facility] BMI 2020-03-30 10:00:00 34.43 kg/m2 [facility] Body height 2020-03-28 09:40:00 162.6 cm [facility] Procedures Procedure Date / Time Performing Source Performed Clinician CBC WITH DIFF 2020-04-02 [facility] of 06:45:00 [facility] BASIC METABOLIC PANEL (NA, K, CL, 2020-04-01 [facility] of CO2, GLUCOSE, BUN, CREATININE, CA) 11:23:00 [facility] CBC WITHOUT DIFF 2020-04-01 [facility] of 11:23:00 [facility] MAGNESIUM 2020-04-01 [facility] of 11:23:00 [facility] BASIC METABOLIC PANEL (NA, K, CL, 2020-03-31 [facility] of CO2, GLUCOSE, BUN, CREATININE, CA) 11:39:00 [facility] CBC WITHOUT DIFF 2020-03-31 [facility] of 11:39:00 [facility] MAGNESIUM 2020-03-31 [facility] of 11:39:00 [facility] SURGICAL PATHOLOGY EXAM 2020-03-30 Evaristo Love [facility] of 18:32:00 K [facility] COLONOSCOPY (ENDO) 2020-03-30 Michele Moe University o f 18:13:59 [facility] ESOPHAGOGASTRODUODENOSCOPY 2020-03-30 [facility] ersity of 18:01:00 K [facility] COLONOSCOPY 2020-03-30 [facility] of 18:01:00 K [facility] EGD (ENDO) 2020-03-30 Michele Moe [place] of 17:46:13 [facility] PREPARE PACKED RBC 2020-03-30 [facility] of 14:00:11 [facility] PREPARE PACKED RBC 2020-03-30 Sal Lee [facility] 12:43:06 [facility] CBC WITHOUT DIFF 2020-03-30 [facility] 11:03:00 [facility] BASIC METABOLIC PANEL (NA, K, CL, 2020-03-29 [facility], [place] of CO2, GLUCOSE, BUN, CREATININE, CA) 09:32:00 [facility] CBC WITHOUT DIFF 2020-03-29 [facility] 09:32:00 [facility] CBC WITHOUT DIFF 2020-03-29 [facility] 02:06:00 [facility] TRANSFUSE PACKED RBC 2020-03-29 [facility] of 00:17:03 [facility] PREPARE PACKED RBC 2020-03-28 [facility] of 20:25:57 [facility] IRON PANEL 2020-03-28 [facility] 16:35:00 [facility] CBC WITHOUT DIFF 2020-03-28 [facility] 16:35:00 [facility] CREATININE, URINE RANDOM 2020-03-28 [facility] ity of 16:35:00 [facility] PREPARE PACKED RBC 2020-03-28 [facility] 11:18:22 [facility] UREA NITROGEN, URINE RANDOM 2020-03-28 [facility] ersity of 11:01:00 [facility] HB ABO GROUPING 2020-03-28 [facility] of 10:13:00 [facility] BASIC METABOLIC PANEL (NA, K, CL, 2020-03-28 [facility], University of CO2, GLUCOSE, BUN, CREATININE, CA) 10:12:00 [facility] INTACT PTH CALCIUM GROUP 2020-03-28 [facility], [facility] ity of 10:12:00 [facility] CBC WITHOUT DIFF 2020-03-28 [facility], [facility] 10:12:00 [facility] PROTHROMBIN TIME / INR 2020-03-28 [facility], Universit y of 10:12:00 [facility] ACTIVATED PARTIAL THRMPLAS BELL 2020-03-28 [facility], U niversity of 10:12:00 [facility] PHOSPHORUS 2020-03-28 [facility], [facility] 10:12:00 [facility] MAGNESIUM 2020-03-28 [facility], [facility] 10:12:00 [facility] FERRITIN SERUM 2020-03-28 [facility], [facility] 10:12:00 [facility] ABORH CONFIRMATION 2020-03-28 Sal Lee [facility] 05:33:00 [facility] HB ABO GROUPING 2020-03-28 Sal Lee [facility] 05:27:00 [facility] DISCLOSURE AND CONSENT, MEDICAL 2020-03-28 [facility] AND SURGICAL PROCEDURES 05:01:00 Unassigned, No [facility] dical Name Branch URINALYSIS 2020-03-28 Sal Lee [facility] 04:34:00 [facility] COVID-19 (ID NOW RAPID TESTING) 2020-03-28 Sal Lee [facility] 04:25:00 [facility] XR CHEST 1 VW 2020-03-28 Sal Lee [facility] 04:21:39 [facility] HEPATIC FUNCTION PANEL (74343) 2020-03-28 Sal Lee U niversity of (ALB,T.PRO,BILI 04:16:00 [facility],BU/BC,ALT,AST,ALK PHOS) [place] BASIC METABOLIC PANEL (NA, K, CL, 2020-03-28 Sal Lee [place] [address], GLUCOSE, BUN, CREATININE, CA) 04:16:00 [facility] CBC WITH DIFF 2020-03-28 Sal Lee [facility] 04:16:00 [facility] LIPASE 2020-03-28 Sal Lee [facility] 04:16:00 [facility] TROPONIN I 2020-03-28 Sal Lee [facility] 04:16:00 [facility] EKG-12 LEAD 2020-03-28 Sal Lee [facility] 04:06:20 [facility] EKG-12 LEAD 2020-03-28 Allison Addison [facility] 03:51:27 J [facility] EMERGENCY SERVICES AGREEMENTS AND 2020-03-27 Doctor [facility] AUTHORIZATIONS 05:01:00 Unassigned, No [facility] Encounters Start End Encounter Admission Attending Care Care Encounter Source Date/Time Date/Time Type Type Clinicians Facility Department ID 2020-06-16 2020-06-16 Outpatient Ajibade_O_A VFP VFP [id number] [facility] 05:45:00 05:45:00 H [id number] Family Practic e 2020-06-16 2020-06-16 Outpatient Ajibade_O_A VFP VFP [id number] [facility] 05:45:00 05:45:00 H [id number] Family Practic e 2020-06-16 2020-06-16 Outpatient Ajibade_O_A VFP VFP [id number] [facility] 05:45:00 05:45:00 H [id number] Family Practic e 2020-06-14 2020-06-14 Outpatient Ajibade_O_A VFP VFP [id number] [facility] 11:18:00 11:18:00 H [id number] Family Practic e 2020-04-15 2020-04-15 Outpatient Ajibade_O_A VFP VFP [id number] [facility] 03:28:00 03:28:00 H 11240 Family Practic e 2020-04-06 2020-04-06 Telephone [facility] [id number] 00:00:00 00:00:00 Oumou HAQPEC [id number] PARVEENLTBishop 4.2.7.2.686 [place] [id number] [facility] 2020-04-06 2020-04-06 Telephone [facility] [id number] [facility] 00:00:00 00:00:00 Natalia MULTISPEC [id number] ity of [place] 4[place]2.686 [place] [id number] [facility] AND WATERS 067 Branch DIABETES CLINIC 2020-04-05 2020-04-05 Transition Lachelle Noble [id number] Univers 00:00:00 00:00:00 of Care [place] [id number] ity of [place] 4[place]2.7.2.686 [place] [id number] [facility] 403 Branch 2020-03-27 2020-04-02 Hospital Sal Lee Rosario [id number] Univers 22:47:00 16:00:00 Encounter Oumou Vincent Lyly [id number] ity of [facility] 4.2.7.2.686 [place] [id number] [facility] 100 Branch 2020-03-27 2020-03-27 Emergency X SHREE, SAL [facility] ERT [id number] Univers 22:47:00 22:47:00 ity of [facility] 2019-10-08 2019-10-08 Outpatient Ige-Odunuga VFP VF [id number] [facility] 07:22:00 07:22:00 _J_ [id number] Family Practic e Results Test Description Test Time Test Comments Results Result Comments Source CBC WITH DIFF 2020-04-02 07:30:00 Test Item Value Reference Range Interpretation Comme nts WBC (test code = 6690-2) See_Comment [A utomated message] The system which ge nerated this result transmit jordana reference range: 4.30 - 1 1.10 10*3/?L. The reference r dez was not used to interpr et this result as normal/abnor mal. RBC (test code = 789-8) See_Comment L [Au tomated message] The system which ge nerated this result transmit jordana reference range: 3.93 - 5 .25 10*6/?L. The reference r dez was not used to interpr et this result as normal/abnor mal. HGB (test code = 718-7) 7.2 g/dL 11.6-15 L HCT (test code = 4544-3) 25.0 % 35.7-45.2 L MCV (test code = 787-2) 73.1 fL 80.6-95.5 L MCH (test code = 785-6) 21.1 pg 25.9-32.8 L MCHC (test code = 786-4) 28.8 g/dL 31.6-35.1 L RDW-SD (test code = 17426-6) 63.8 fL 39-49.9 H RDW-CV (test code = 788-0) 24.6 % 12-15.5 H PLT (test code = 777-3) See_Comment L [Au tomated message] The system which ge nerated this result transmit jordana reference range: 166 - 35 8 10*3/?L. The reference range was not used to interpret th is result as normal/abnormal . MPV (test code = 81220-5) No t Measured IPF % (test code = 8.3 % 1.3-7.7 H Platelet count measured by [id number]) fluorescence me thod. NRBC/100 WBC (test code = See_Comment [ Automated message] The [id number]) system which ge nerated this result transmit jordana reference range: 0.0 - 10 .0 /100 WBCs. The reference r dez was not used to interpr et this result as normal/abnor mal. NRBC x10^3 (test code = See_Comment [Au tomated message] The [id number]) system which [employer] nerated this result transmit jordana reference range: 10*3/?L. The reference range was not u sed to interpret this result as normal/abnormal . GRAN MAT (NEUT) % (test code 66.3 % = 770-8) IMM GRAN % (test code = 0.60 % [id number]) LYMPH % (test code = 736-9) 22.9 % MONO % (test code = 5905-5) 8.2 % EOS % (test code = 713-8) 1.4 % BASO % (test code = 706-2) 0.6 % GRAN MAT x10^3(ANC) (test 3.25 10*3/uL 1.88-7.09 code = 5699164135) IMM GRAN x10^3 (test code = 0.03 10*3/uL 0-0.06 0673302397) LYMPH x10^3 (test code = 1.12 10*3/uL 1.32-3.29 L 731-0) MONO x10^3 (test code = 0.40 10*3/uL 0.33-0.92 742-7) EOS x10^3 (test code = 0.07 10*3/uL 0.03-0.39 711-2) BASO x10^3 (test code = 0.03 10*3/uL 0.01-0.07 704-7) BASO STIPPLING (test code = Present A 703-9) SCHISTOCYTES (test code = 1+ A 800-3) Lab Interpretation (test Abnormal code = 20030-2) [facility] [id number] 18:54:00 Test Item Value Reference Range Interpretation Comments Case Report (test code Surgical Pathology ? ? = [id number]) ?Case: [id number] ? Authorizing Provider: ?Evarisot Love, DO ? ? Collected: ? 03/30/2020 1332 ?Ordering Location: ? ? GI Endoscopy OR Department Received: ?03/30/2020 1658 ?Pathologist: ? Jo Hernandez MD PHD ?Specimens: ? A) - DUODENUM, Duodenal nodual BX to evaluate for pathology ? B) - STOMACH, Gastric BX to evaluate for Hpylori ? C) - ESOPHAGUS, Esophageal BX to evaluate for esophagitis ? Final Diagnosis (test t9yfwNFnTSEjr5gpCACyrY code = 2547188020) FuZzEwMzNcZnRuYmpcdWMx RHnlhiGxHFqqu5RwI4NxIg AwMFxhbnNpXGRlZmxhbmcx HFCbHZP7rqJkUAXxTGyuHJ AdLRcxFh0xbUTfhJpqUvWq GZCqd5ibksZZsrghjHh5u0 frNVRsHqM6nOMzEEttL2qs zbRvqNIbGNAwCDu0uA00FD IhfC1guUVtGMhjagLeSpJ4 WCtvGCTuNxG0XFIioWGoKY CyC5ywJGXuMDcaUORiWAap uVHnDHV4tJrpz1Q6eLXdpP MinMuuOqSzGsXtZBTHv9Bc UOx8jWbwN0IlBGEkZlR9xY QgUGFyYWdyYXBoIEZvbnQ7 wJ61EDyynyY5xXXet4Xoo8 0tm918bE0rnWCcBOI6KOFw RCLkqBEtAUTlONC5LBCtuS KiY4vdRMlbPG6ztrtsNQW1 MFxtYXJndDcyMFxtYXJnYj DroLKcZZXpsKwjAQefm921 BBU6JnFjKL3gJ2Uvy3P6tH 9maXRcZGVmdGFiNzIwXGZv ni6wyWNxPBsww0TgJOD2th B1zALumYEfLMLfIA06Olaw i7HpEhctPRW8EPGbuuTxq9 Fuu7zkGpYgtjVbC4ayR0Xj ZHJoZWFkXHBnYnJkcmZvb3 Pai2BhuDWhuNa0m7erQWPd IFXopLzuw7xpZLW6XZKoZ7 L9fVZni2uoHCccXPZydRB4 gzOcIIIrfHFpM9QcyH4dDH bdUY1bfhf1f6mqXsIxSF9z daisu0vyKZxaPFWuSAI8Rg UkPURye1YwjkszFtSmd6Lq nHIhEBsyK00op716UUZdtp VjO9tkhUYqtisxpXMespil OHpqteF2ENIrAGHaHThbDR YxXGZzMjBcbGFuZzEwMzNc aGljaFxmMVxkYmNoXGYxXG yuN9asEtFcWbMrCZzaNDEk IE8pPIFPRXLMCO8aVELSC0 BTWTpccGFyICAgICAgLSBT YEWUWHDQK3dJSMAHQYVHI1 GeD8aIKCXYEoLNMPFAA8tN M6uFSZHYKC6WSMWwaLEtDL BhclxwYXJkXHBsYWluXGYw BRHiYtInqFznrZ5dOaJeLg EdIOwwDZ4jOMBbA4qrlLKg TVVwAQCiT8kuToMhgF1vxP kjILqwbgEhDUDsXEIXH74X V8fyXYRDS8NCZMcnlLBoEH UpYJRmWHZZLLQEGmzEUC0M Z94OYKHCFHINAE3BUNTYWL bDGA7DUYZfM4nHJqoYR5ts LNExJVDmPDInEB5WBOewEI bND4ZIZU4GA5ZAZKUXYvXD REVOVElGSUVEXHBhciAgIC TsVZ0dOj4wJZ6UESSZLX9Z WLSTKCBAMEsAB6pISXwEQF 5USUZJRURccGFyXHBhciAg FQXCAvLZI62QOHHXDRMsEJ CAP7WZDZprPVXodwHgEYWb OMFQEVZIKB5LLkIDJRRDT8 IbZ3dVEXGCFmVCCUVVN9rG C9lSUKWLOV1XRDRbzZQxHY TgRCQeVZ9OJUgNTZFMOOyU QUwgTUVUQVBMQVNJQSBJRE VOVElGSUVEXHBhciAgICAg XHBhclxxbFxwbGFpblxmMF nutrO4BXLeODrhROJhNYEd MjJcbGFuZzEwMzNcaGljaF apROqyVdBmNXSqAFipC0pa BuSvM2PzXYItHhTeVkHcmJ NbRYevKAN1JDmkNR8FU9iD HHB8AyYaWfSlYfViAUi4KY LmNK0vdWpzgS9gLdVoAcOy QTlrMU9iUOUpQ2fqeOSmZR XbDTDtT0mzMoHzkO9lgZll YWvkdtPzRWUpispeHKE7c9 xydGYxXHNzdGVjZjIyMDAw PLZms4blACErnEYhEeBfFz NcZnRuYmpcdWMxXGRlZmYw y0bgb255aFCtf6uvALNwDi J4bEJxGUWdiDpwdbz9lGai PuArPTExw5wrgvXuJdPtEY NsKBAxBEBfaVDbW337ROTz ZZiod5snf4LoVTUppEIeg0 V0ZGDSMLkpXmIwA784k9wc j6ncgwDhoWI7XHMnGEX3CS jxxxXsudU9LYzldFWgKlW1 IDtccmVkMFxncmVlbjBcYm f7YCFnM831TDZ0vVjth8bw EFM7ORPlNRTkCrrbDs6bmD ZbY786CLMsDOGQWXUytEd3 NROljrZnwrPkfZRYq487W2 36z2dsURQkjzKjvKxWmclk r2wiE114RRIxsYObatSyWm QvMYMloIAbhEO5MPZlQR9k pkjzNSvgJAkhOSTrasK1IK AlsWHvN5GwZTLnPU9chfcm GDI9DCoxKUGmRWM9WhSoIL Jac1Dzaeg4MvMtdb2lgs42 LFS0c9XywWjuHVD2TVT5Yd CsMe3zcTFmMWHgTT8sHcEm mALbIYOgqq39bXoaTUknoh LweT1kVzBkIOXunMMuGNKj SR7dhSQhRIEnxP1hvdsmEU BnYnJkcmhlYWRccGdicmRy Qp5sxOvtZIH9WDbnB6biyK 8lJrV5QWovU3mboG2yBCw8 YNiyrHK8OMGgxJ1wUQ9ibe xrd2qfKHjbLRejSYPwpmK2 gqX6OFLplCMcX2OyyK6kBS CkOF6pwxocn6nkRJC8FRtc WVSoYZG5HlFoGLHps9Reev h5FtAkd2YjgVQrTRhwQ12j u889WPGsheXfW2qgnZEaxk zwqBGddwhaSNrtlpP8OALy XHBsYWluXGYxXGZzMjBcbG FuZzEwMzNcaGljaFxmMVxk AhOwCHPiESsnV1cwAjVtC8 YyXGZzMjBccGFyIEkgaGF2 WUMzPPNyn67roHv3FCJdon xfv4BaBRTjmRAdbKMopH7u ejUal3xoVGSiSLJjIRYxK2 JuDKZ4vRBmRWTqkSJztPR9 NI1ctnFlZY0gENHeXqsabf AaoBZsbuSxSJLkYGkiz5ct JN8sZAAfrDdwjS4xiJJ2YV Pkz0rjtQCjpGSrk1why8Tj bmFtZShzKSBtYXkgYXBwZW HoOS9yDITdyZQucgIdy1R6 WhrvcRYzctvyDkrfvzQ2UM plxvwaMUPxPXdiJ2twKwAh EHOcoVtzMixvc7KpAOVbGL ZzMjhccGFyfX0= Clinical Information 74 y/o female with (test code = anemia1. Duodenal [id number]) nodual BX to evaluate for pathology2. Gastric BX to evaluate for Hpylori3. Esophageal BX to evaluate for esophagitis Gross Description (test l5fuzBTpDUWazKRnTzEqQB code = [id number]) MsWHJjq6fsUZNujUXaUvJn MzNcZnRuYmpcdWMxXGRlZm Dqp6tkb994bKMmb4gkNVDy CrW8pNDaXEWvtSThH427BB IiXJdnj0vtm4FqIVKdtEPv d5A8QCNIsqihbKd2s1avLk LtMsW4lUIfWNebL2zrndAb oHIqHERjI8YhchSLQYDzLx c4w2zuFqCeJuRwaHArYKec S6kfstWtzDZmWMvxGJLjZq U5SNHzbIUlK814l1isr9ae xhOzeRN8WETuKOXhZ0AaWH 1tZWHqcPCsIGqugxQbYoQ4 FRhcONNsVkX0HKJaoGStUD EpO433DEB8hGgxu3glQYL0 KPBgXPTdFsDyHr6xgUBlT0 85FVUgNZSGZBVvxPv6SARo kgNkitUcuQAVj680M011k4 ngAXObwqWixHqFbpjgs7kp Q549ZJHzfGIaqbEfHgZsSY VhkKFstWI3QXCrML6lmdzi BJK3SLyaIFHipvSlAWZhqK DjZ1U6JdSphAWuK6XqIMre LSXumew9ZrNpPb5dsSJhhT N3XZxwp4qqg9tqaXPsSwv5 MLTvQxVyEcsiNRehq7Edy6 qpVRNhga2vVCS8uWUngNhg u0Q9nDDsYDVaaDZamaLnMH ZgFmP4DXwvRF8env64WKCc SCF7ca3vmUIaoNoviuMvvO GvEVhjI6GfXPZtz532QRTx B1WeALUwk5S3kgZnVpTeBQ BjsZM8wbB9NYFkZZw7wYTr pkZ5zdEjiCRgS6rdpC2wIW wvGD4jvsury9qkVDY0KDcs HKKgrQA7avzqQAfvWTEzPp P2biWhoGCvRKAskBgwNMvx z547CZD8InEjPIFaf4IoB4 OvgVzjT98mfNboX91sBLMw dMfyrI8evLjjtM2vGsKaZk UjALmyXYKsKPishWM4Esri dR81pYMlPIPaGMOsTYpbPD GvADStCtRcyCugmZ0mIlXc GyCkRXLIhOXxfY8kcmNFKO chOPEfA5DvogFmJNndTDLl ck8aaQsiISbrYdGbpPIoAE dpdGggdGhlIHBhdGllbnRc cZbjwQ0aOnUrWhQcDMk6DP IxNyBcJzkyXHBsYWluXGYx WAVpWzOircJyOF4fLXLJDE TrhL2nPXGhMQSwQSelYSGk QLUsUiWlzWxbTyWaYNz7D0 xwbGFpblxmMVxmczIwIGR1 i8NwdtExEOGqbS8zOT0ljA Hte8P3wEPyBkpjsIE1WXUc rfDjORAfvqVfTZMsu5hhB4 mipOhgfE8fIaCcMcJsOFo9 FLGuUMEqFxq4KACmNClqHW LlKUOtUrZzFZSgMNLgr59z wFQ6sjHtYbEkGNCaqgxqYK E0AG7hlWeszxJgzoJxD9Ic PDPbv49ddTU0oNBarLZdCy EiB29fgiEhBPEsOpA0LPWn QuD5MTWbRinnZRFjGWBfpF AhxA0akfRxvyOghJk8SBKh PHQ2iGXzqRcrAUDpFvprtW Q8CNLiQsVozpJef8HxoJl8 pYPkGKgyNOMqdR3uiO0mCS DhNUHxfeGUyUCmxX9cslHR HOkqYAUqG9RrsbCxTWigHV Flym1zzLgfSRxnDoAezLKv IHdpdGggdGhlIHBhdGllbn MibJlyeH7bNqYfPrQxVDf9 ODIxNyBcJzkyXHBsYWluXG YiXUBlQkMqqfKyOF4aMJHP WRXeeR7eDPMmBRZhRGswSL YxXGZzMjBcdTgyMjAgXCc5 R6nslKOupyufCChgqdBgGC N3j92yC0bgUMyjc9FhbZXr LsizvFK3XCAadiNfFCRhjr SISgKvvQrkksltwCqezN3h RcOgOmAlBIi4JRUuQTXsRi n1SQZoTGuyIBVxRVKoOvKu JCJzPZDmo50rvZR5opYlKy OtIEBqus8bgF9jZUawxmCz aUmuwaViv9I2NFGgf1M8UZ BmcmFnbWVudHMgKDAuNCB4 RQSuFhT7IYXeBjFacVibTJ VfHBOccQLxwO6ltgZyktUm uAt4OKJrUKF6yPHasUiyXB GnZbubuBT8WEExYnOegdDs z8ViyCl9pBZsFXrlQJXgxQ 2vzE3kHxMuZTZsiyYQmXAg uQ4yngZQYDonAPWoV6Wuzi EyVEvzQDPnpt5apMmrVEuz YmVsbGVkIHdpdGggdGhlIH CygNhryvQgaKxmcD3tHqWb PrTsGZp8JHDqArJpMtxyLA BsYWluXGYxXGZzMjAgcyBu XF3hJGSYQAOyqE0xVJXgER BsYWluXGYxXGZzMjBcdTgy MqXjPRy7L4tvxQDmsdjhKH bufqYkOGOrw7KfBLi8qwta NUMuaToqU9VwhGZkrS1hn0 jyUSP4MGfiDq4jCGYxz0Yr YWdpdGlzXHBsYWluXGYxXG IvWaOuqOzaSpDtWKc1CFvv bGFpblxmMVxmczIwICBhbm MxN21ab9pfiRHtl4DkOZBs nX8edPNhmDJzNPYlqsdxyT MoHZr9qGMdWYCaPaQbdZmx h5OnNDJdGLbuDA22JGupZs NebINmRfOnaPZdGuKaI00k QsEZyNGya6PaI5guGM8znT EqGwxjtSHnJQWovBlhw5Sa eTIgAEErx9YgmRZeYOndIF 7ePNJ8Mc4deCJpWSAfioT9 j5ZgPHnaMULgZhvbSGGqwJ FyZFxwbGFpblxmMFxmczIw XHBsYWluXGYxXGZzMjAgUG Y3qXHFtM61VVPtNKVyOIEy tUooxL7jpVN9IUPkm0zahF ErdXkzsNfkeJ3iWgPiXvQs RctsVY2zOLKeP9xgbFVbXY OoRIOgW4wbSjJmxY6rxRae MlxjZjFcZnMxNlxwYXJcc2 DxCAYvl3adSwYzo7obcVw6 MVxxbFxwbGFpblxmMFxmcz IwXHBsYWluXGYzXGZzMjRc bGFuZzEwMzNcaGljaFxmM1 bpVoAgLWAmKBmbE9cgUlPc A2RdFAEhEjUovADmVBHxGG upbSR9FMwgfV82xWNaXOVi YWluXGYwXGZzMjBccGxhaW 8jWkXaBvJtVBeyTKP6 Embedded Images (test code = 4808767559) [facility] METABOLIC PANEL (NA, K, CL, CO2, GLUCOSE, BUN, CREATININE, CA)2020-04-01 12:07:00 Test Item Value Reference Range Interpretation Comments NA (test code = 138 mmol/L 135-145 4586432213) K (test code = 4.0 mmol/L 3.5-5 7446510853) CL (test code = 108 mmol/L 98-108 8293066810) CO2 TOTAL (test code = 24 mmol/L 23-31 0697718427) AGAP (test code = 2-16 3248087813) BUN (test code = 14 mg/dL 7-23 5578789194) GLUCOSE (test code = 106 mg/dL 70-110 6472122358) CREATININE (test code 0.80 mg/dL 0.5-1.04 = 6619301143) CALCIUM (test code = 8.7 mg/dL 8.6-10.6 7312982496) eGFR Calculation mL/min/1.73m2 (Non-) (test code = 1089651823) eGFR Calculation mL/min/1.73m2 () (test code = 2667342461) LEI (test code = LEI) Association of Glomerular Filtration Rate (GFR) and Staging of Kidney Disease* + -+ + ---+| GFR (mL/min/1.73 m2) ?| With Kidney Damage ?| ?Without Kidney Damage+ -------+ ------+ ---------+| ?>90 ?| ?Stage one ?| ? Normal ?+ --+ -+ ----+| ?60-89 ?| ?Stage two ?| ? Decreased GFR ? + -+ + ---+| ?30-59 ?| ?Stage three ?| ? Stage three ? + -+ + ---+| ?15-29 ?| ?Stage four ? | ? Stage four ?+ --+ -+ ----+| ?<15 (or dialysis) ? ?| ?Stage five ? | ? Stage five ?+ --+ -+ ----+ *Each stage assumes the associated GFR level has been in effect for at least three months. ?Stages 1 to 5, with or without kidney disease, indicate chronic kidney disease. Notes: Determination of stages one and two (with eGFR >59mL/min/1.73 m2) requires estimation of kidney damage for at least three months as defined by structural or functional abnormalities of the kidney, manifested by either:Pathological abnormalities or Markers of kidney damage (including abnormalities in the composition of the blood or urine or abnormalities in imaging tests). [facility] 12:07[facility]00 Test Item Value Reference Range Interpretation Comments MAGNESIUM (test code = 4454201009) 1.7 mg/dL 1.7-2.4 Lab Interpretation (test code = Normal 77399-6) [facility] WITHOUT [id number] 11:37:00 Test Item Value Reference Range Interpretation Comments WBC (test code = See_Comment L [Automated message] 6690-2) The system [employer] generated this result transmitted ref erence range: 4.30 - 1 1.10 10*3/?L. The reference range was not used to int erpret this result as normal/abnormal . RBC (test code = 789-8) See_Comment L [Au tomated message] The system [employer] generated this result transmitted ref erence range: 3.93 - 5 .25 10*6/?L. The reference range was not used to int erpret this result as normal/abnormal . HGB (test code = 718-7) 7.8 g/dL 11.6-15 L HCT (test code = 26.9 % 35.7-45.2 L 4544-3) MCH (test code = 785-6) 21.0 pg 25.9-32.8 L MCV (test code = 787-2) 72.5 fL 80.6-95.5 L MCHC (test code = 29.0 g/dL 31.6-35.1 L 786-4) PLT (test code = 777-3) See_Comment L [Au tomated message] The system [employer] generated this result transmitted ref erence range: 166 - 35 8 10*3/?L. The reference range was not used to int erpret this result as normal/abnormal . MPV (test code = Not Measure d 05105-0) RDW-CV (test code = 24.3 % 12-15.5 H 788-0) RDW-SD (test code = 62.6 fL 39-49.9 H 05276-7) NRBC x10^3 (test code = <0.01 See_Comment [Au tomated message] 2698592386) The system [employer] generated this result transmitted ref erence range: 10*3/?L. The reference range was not used to int erpret this result as normal/abnormal . NRBC/100 WBC (test code See_Comment [Au tomated message] = 8742295809) The system [employer] generated this result transmitted ref erence range: 0.0 - 10 .0 /100 WBCs. The reference range was not used to int erpret this result as normal/abnormal . IPF % (test code = 7.2 % 1.3-7.7 Platelet count [id number]) measured by fluorescence me thod. Lab Interpretation Abnormal (test code = 20318-9) [facility] WITHOUT [id number] 12:53:00 Test Item Value Reference Range Interpretation Comments WBC (test code = See_Comment [Automated message] 6690-2) The system [employer] generated this result transmitted ref erence range: 4.30 - 1 1.10 10*3/?L. The reference range was not used to int erpret this result as normal/abnormal . RBC (test code = 789-8) See_Comment L [Au tomated message] The system [employer] generated this result transmitted ref erence range: 3.93 - 5 .25 10*6/?L. The reference range was not used to int erpret this result as normal/abnormal . HGB (test code = 718-7) 8.2 g/dL 11.6-15 L HCT (test code = 27.8 % 35.7-45.2 L 4544-3) MCH (test code = 785-6) 21.0 pg 25.9-32.8 L MCV (test code = 787-2) 71.3 fL 80.6-95.5 L MCHC (test code = 29.5 g/dL 31.6-35.1 L 786-4) PLT (test code = 777-3) See_Comment L [Au tomated message] The system [employer] generated this result transmitted ref erence range: 166 - 35 8 10*3/?L. The reference range was not used to int erpret this result as normal/abnormal . MPV (test code = Not Measure d 28636-7) RDW-CV (test code = 24.2 % 12-15.5 H 788-0) RDW-SD (test code = 62.3 fL 39-49.9 H 29877-1) NRBC x10^3 (test code = See_Comment [Au tomated message] 1264038986) The system [employer] generated this result transmitted ref erence range: 10*3/?L. The reference range was not used to int erpret this result as normal/abnormal . NRBC/100 WBC (test code See_Comment [Au tomated message] = 7548524024) The system [employer] generated this result transmitted ref erence range: 0.0 - 10 .0 /100 WBCs. The reference range was not used to int erpret this result as normal/abnormal . IPF % (test code = 6.4 % 1.3-7.7 Platelet count [id number]) measured by fluorescence me thod. Lab Interpretation Abnormal (test code = 68968-9) [facility] METABOLIC PANEL (NA, K, CL, CO2, GLUCOSE, BUN, CREATININE, CA)2020-03-31 12:37:00 Test Item Value Reference Range Interpretation Comments NA (test code = 140 mmol/L 135-145 1145622962) K (test code = 3.9 mmol/L 3.5-5 3522298067) CL (test code = 111 mmol/L 98-108 H 2625492369) CO2 TOTAL (test code = 22 mmol/L 23-31 L 4358751369) AGAP (test code = 2-16 9583196266) BUN (test code = 10 mg/dL 7-23 7689741622) GLUCOSE (test code = 113 mg/dL 70-110 H 9670331166) CREATININE (test code = 0.94 mg/dL 0.5-1.04 6352369778) CALCIUM (test code = 8.3 mg/dL 8.6-10.6 L 7591835078) eGFR Calculation mL/min/1.73m2 (Non-) (test code = 9602309393) eGFR Calculation mL/min/1.73m2 () (test code = 7527155314) LEI (test code = LEI) Association of Glomerular Filtration Rate (GFR) and Staging of Kidney Disease* + --+ --+ ------+| GFR (mL/min/1.73 m2) ?| With Kidney Damage ?| ?Without Kidney Damage+ --------+ --------+ +| ?>90 ?| ?Stage one ?| ? Normal ?+ ---+ ---+ -------+| ?60-89 ?| ?Stage two ?| ? Decreased GFR ? + --+ --+ ------+| ?30-59 ?| ?Stage three ?| ? Stage three ? + --+ --+ ------+| ?15-29 ?| ?Stage four ? | ? Stage four ?+ ---+ ---+ -------+| ?<15 (or dialysis) ? ?| ?Stage five ? | ? Stage five ?+ ---+ ---+ -------+ *Each stage assumes the associated GFR level has been in effect for at least three months. ?Stages 1 to 5, with or without kidney disease, indicate chronic kidney disease. Notes: Determination of stages one and two (with eGFR >59mL/min/1.73 m2) requires estimation of kidney damage for at least three months as defined by structural or functional abnormalities of the kidney, manifested by either:Pathological abnormalities or Markers of kidney damage (including abnormalities in the composition of the blood or urine or abnormalities in imaging tests). Lab Interpretation Abnormal (test code = 55440-1) [facility] 12:37:00 Test Item Value Reference Range Interpretation Comments MAGNESIUM (test code = 3693267060) 1.7 mg/dL 1.7-2.4 Lab Interpretation (test code = Normal 13255-3) [facility] Packed RBC (in units), 1 Units 2020-03-30 14:00:11 Test Item Value Reference Range Interpretation Comments Cross Match Result Compatible (test code = 4409) ISBT Blood Type Code (test code = 563654) Unit Blood Type (test O Pos code = 4410) Unit Number (test [id number] code = 4411) Blood Expiration Date & Time (test code = 427004) Status Information Issued (test code = 4412) Product Red Blood Cells Identification (test code = 4413) Product Code (test [id number] Performed at [facility] code = 4414) Laboratory Services - [facility] Blood [address] [place] [address]Zjmm Free: [phone] A No. [id number] [facility] Packed RBC (in units), 2 Units 2020-03-30 12:43:06 Test Item Value Reference Range Interpretation Comments Cross Match Result Compatible (test code = 4409) ISBT Blood Type Code (test code = 039633) Unit Blood Type (test O Pos code = 4410) Unit Number (test [id number] code = 4411) Blood Expiration Date & Time (test code = 626743) Status Information Issued (test code = 4412) Product Red Blood Cells Identification (test code = 4413) Product Code (test [id number] Performed at [facility] code = 4414) Laboratory Services - [facility] Blood [address] [place] [id number] Free: [phone] A No. [id number] [facility] WITHOUT [id number] 11:39:00 Test Item Value Reference Range Interpretation Comments WBC (test code = See_Comment L [Automated message] 6690-2) The system [employer] generated this result transmitted ref erence range: 4.30 - 1 1.10 10*3/?L. The reference range was not used to int erpret this result as normal/abnormal . RBC (test code = 789-8) See_Comment L [Au tomated message] The system [employer] generated this result transmitted ref erence range: 3.93 - 5 .25 10*6/?L. The reference range was not used to int erpret this result as normal/abnormal . HGB (test code = 718-7) 6.6 g/dL 11.6-15 L HCT (test code = 22.5 % 35.7-45.2 L 4544-3) MCH (test code = 785-6) 20.8 pg 25.9-32.8 L MCV (test code = 787-2) 71.0 fL 80.6-95.5 L MCHC (test code = 29.3 g/dL 31.6-35.1 L 786-4) PLT (test code = 777-3) See_Comment L [Au tomated message] The system [employer] generated this result transmitted ref erence range: 166 - 35 8 10*3/?L. The reference range was not used to int erpret this result as normal/abnormal . MPV (test code = Not Measure d 40380-6) RDW-CV (test code = 24.9 % 12-15.5 H 788-0) RDW-SD (test code = 63.7 fL 39-49.9 H 48593-4) NRBC x10^3 (test code = <0.01 See_Comment [Au tomated message] 1847969580) The system [employer] generated this result transmitted ref erence range: 10*3/?L. The reference range was not used to int erpret this result as normal/abnormal . NRBC/100 WBC (test code See_Comment [Au tomated message] = 5718237559) The system [employer] generated this result transmitted ref erence range: 0.0 - 10 .0 /100 WBCs. The reference range was not used to int erpret this result as normal/abnormal . IPF % (test code = 8.9 % 1.3-7.7 H Platelet count [id number]) measured by fluorescence me thod. Lab Interpretation Abnormal (test code = 13234-5) [facility] METABOLIC PANEL (NA, K, CL, CO2, GLUCOSE, BUN, CREATININE, CA)2020-03-29 10:15:00 Test Item Value Reference Range Interpretation Comments NA (test code = 139 mmol/L 135-145 3439611268) K (test code = 4.1 mmol/L 3.5-5 1919562244) CL (test code = 113 mmol/L 98-108 H 1503669193) CO2 TOTAL (test code = 19 mmol/L 23-31 L 5873959186) AGAP (test code = 2-16 4569110478) BUN (test code = 18 mg/dL 7-23 0050454755) GLUCOSE (test code = 103 mg/dL 70-110 6655606243) CREATININE (test code = 0.91 mg/dL 0.5-1.04 9787324193) CALCIUM (test code = 8.0 mg/dL 8.6-10.6 L 1991750590) eGFR Calculation mL/min/1.73m2 (Non-) (test code = 3266406087) eGFR Calculation mL/min/1.73m2 () (test code = 8807200424) LEI (test code = LEI) Association of Glomerular Filtration Rate (GFR) and Staging of Kidney Disease* + --+ --+ ------+| GFR (mL/min/1.73 m2) ?| With Kidney Damage ?| ?Without Kidney Damage+ --------+ --------+ +| ?>90 ?| ?Stage one ?| ? Normal ?+ ---+ ---+ -------+| ?60-89 ?| ?Stage two ?| ? Decreased GFR ? + --+ --+ ------+| ?30-59 ?| ?Stage three ?| ? Stage three ? + --+ --+ ------+| ?15-29 ?| ?Stage four ? | ? Stage four ?+ ---+ ---+ -------+| ?<15 (or dialysis) ? ?| ?Stage five ? | ? Stage five ?+ ---+ ---+ -------+ *Each stage assumes the associated GFR level has been in effect for at least three months. ?Stages 1 to 5, with or without kidney disease, indicate chronic kidney disease. Notes: Determination of stages one and two (with eGFR >59mL/min/1.73 m2) requires estimation of kidney damage for at least three months as defined by structural or functional abnormalities of the kidney, manifested by either:Pathological abnormalities or Markers of kidney damage (including abnormalities in the composition of the blood or urine or abnormalities in imaging tests). Lab Interpretation Abnormal (test code = 16641-3) [facility] WITHOUT [id number] 09:47:00 Test Item Value Reference Range Interpretation Comments WBC (test code = See_Comment L [Automated message] 6690-2) The system [employer] generated this result transmitted ref erence range: 4.30 - 1 1.10 10*3/?L. The reference range was not used to int erpret this result as normal/abnormal . RBC (test code = 789-8) See_Comment L [Au tomated message] The system [employer] generated this result transmitted ref erence range: 3.93 - 5 .25 10*6/?L. The reference range was not used to int erpret this result as normal/abnormal . HGB (test code = 718-7) 7.0 g/dL 11.6-15 L HCT (test code = 24.1 % 35.7-45.2 L 4544-3) MCH (test code = 785-6) 20.7 pg 25.9-32.8 L MCV (test code = 787-2) 71.3 fL 80.6-95.5 L MCHC (test code = 29.0 g/dL 31.6-35.1 L 786-4) PLT (test code = 777-3) See_Comment L [Au tomated message] The system [employer] generated this result transmitted ref erence range: 166 - 35 8 10*3/?L. The reference range was not used to int erpret this result as normal/abnormal . MPV (test code = Not Measure d 85079-5) RDW-CV (test code = 23.9 % 12-15.5 H 788-0) RDW-SD (test code = 61.6 fL 39-49.9 H 35243-4) NRBC x10^3 (test code = See_Comment [Au tomated message] [id number]) The system [employer] generated this result transmitted ref erence range: 10*3/?L. The reference range was not used to int erpret this result as normal/abnormal . NRBC/100 WBC (test code See_Comment [Au tomated message] = [id number]) The system [employer] generated this result transmitted ref erence range: 0.0 - 10 .0 /100 WBCs. The reference range was not used to int erpret this result as normal/abnormal . IPF % (test code = 6.0 % 1.3-7.7 Platelet count [id number]) measured by fluorescence me thod. Lab Interpretation Abnormal (test code = 77341-4) [facility] WITHOUT [id number] 02:16:00 Test Item Value Reference Range Interpretation Comments WBC (test code = See_Comment [Automated message] 6690-2) The system [employer] generated this result transmitted ref erence range: 4.30 - 1 1.10 10*3/?L. The reference range was not used to int erpret this result as normal/abnormal . RBC (test code = 789-8) See_Comment L [Au tomated message] The system [employer] generated this result transmitted ref erence range: 3.93 - 5 .25 10*6/?L. The reference range was not used to int erpret this result as normal/abnormal . HGB (test code = 718-7) 6.9 g/dL 11.6-15 L HCT (test code = 23.5 % 35.7-45.2 L 4544-3) MCH (test code = 785-6) 20.8 pg 25.9-32.8 L MCV (test code = 787-2) 70.8 fL 80.6-95.5 L MCHC (test code = 29.4 g/dL 31.6-35.1 L 786-4) PLT (test code = 777-3) See_Comment L [Au tomated message] The system [employer] generated this result transmitted ref erence range: 166 - 35 8 10*3/?L. The reference range was not used to int erpret this result as normal/abnormal . MPV (test code = Not Measure d 64956-9) RDW-CV (test code = 24.1 % 12-15.5 H 788-0) RDW-SD (test code = 61.0 fL 39-49.9 H 85348-5) NRBC x10^3 (test code = See_Comment [Au tomated message] [id number]) The system [employer] generated this result transmitted ref erence range: 10*3/?L. The reference range was not used to int erpret this result as normal/abnormal . NRBC/100 WBC (test code See_Comment [Au tomated message] = [id number]) The system [employer] generated this result transmitted ref erence range: 0.0 - 10 .0 /100 WBCs. The reference range was not used to int erpret this result as normal/abnormal . IPF % (test code = 5.9 % 1.3-7.7 Platelet count [id number]) measured by fluorescence me thod. Lab Interpretation Abnormal (test code = 48528-8) [facility] Packed RBC (in units), 1 Units 2020-03-28 20:25:57 Test Item Value Reference Range Interpretation Comments Cross Match Result Compatible (test code = 4409) ISBT Blood Type Code (test code = 140700) Unit Blood Type (test O Pos code = 4410) Unit Number (test [id number] code = 4411) Blood Expiration Date & Time (test code = 539356) Status Information Issued (test code = 4412) Product Red Blood Cells Identification (test code = 4413) Product Code (test U8726D09 Performed at [facility] code = 4414) Laboratory Services - [facility] [address] [address] Free: [phone] A No. [id number] [facility] [id number] 17:32:00 Test Item Value Reference Range Interpretation Comments IRON (test code = 9351889410) 52 ug/dL 50-160 TIBC (test code = 3765548901) 519 ug/dL 250-410 H % FE SAT (test code = 6807000323) 10 % 20-50 L Lab Interpretation (test code = Abnormal 88325-8) [facility] WITHOUT [id number] 17:22:00 Test Item Value Reference Range Interpretation Comments WBC (test code = See_Comment [Automated message] 6690-2) The system [employer] generated this result transmitted ref erence range: 4.30 - 1 1.10 10*3/?L. The reference range was not used to int erpret this result as normal/abnormal . RBC (test code = 789-8) See_Comment L [Au tomated message] The system [employer] generated this result transmitted ref erence range: 3.93 - 5 .25 10*6/?L. The reference range was not used to int erpret this result as normal/abnormal . HGB (test code = 718-7) 6.0 g/dL 11.6-15 L HCT (test code = 21.0 % 35.7-45.2 L 4544-3) MCH (test code = 785-6) 19.7 pg 25.9-32.8 L MCV (test code = 787-2) 68.9 fL 80.6-95.5 L MCHC (test code = 28.6 g/dL 31.6-35.1 L 786-4) PLT (test code = 777-3) See_Comment L [Au tomated message] The system [employer] generated this result transmitted ref erence range: 166 - 35 8 10*3/?L. The reference range was not used to int erpret this result as normal/abnormal . MPV (test code = Not Measure d 13568-5) RDW-CV (test code = 23.8 % 12-15.5 H 788-0) RDW-SD (test code = 58.9 fL 39-49.9 H 94853-7) NRBC x10^3 (test code = See_Comment [Au tomated message] 0491637817) The system [employer] generated this result transmitted ref erence range: 10*3/?L. The reference range was not used to int erpret this result as normal/abnormal . NRBC/100 WBC (test code See_Comment [Au tomated message] = 5321402077) The system [employer] generated this result transmitted ref erence range: 0.0 - 10 .0 /100 WBCs. The reference range was not used to int erpret this result as normal/abnormal . IPF % (test code = 6.3 % 1.3-7.7 Platelet count 7496022304) measured by fluorescence me thod. Lab Interpretation Abnormal (test code = 73918-0) [facility] AmericaCREATININE, URINE [id number] 17:03:00 Test Item Value Reference Range Interpretation Comments CREAT U (test code = 2099583764) 33.1 mg/dL [facility] AmericaINTACT PTH CALCIUM [id number] 12:30:00 Test Item Value Reference Range Interpretation Comments CALCIUM (test code = 7.9 mg/dL 8.6-10.6 L 4145165292) PTH-INTACT (test code = 46.5 pg/mL 9263711977) PTH-CA Interpretation Furthe r clinical (test code = 6545897610) manolo a needed for interpretation. Lab Interpretation (test Abnormal code = 76442-0) [facility] AmericaFERRITIN [id number] 11:44:00 Test Item Value Reference Range Interpretation Comments FERRITIN (test code = 5.3 ng/mL 11-264 L 7426517592) LEI (test code = LEI) Biotin has been reported to cause a negative bias, interpret results relative to patient's use of biotin. Lab Interpretation (test Abnormal code = 13269-0) [facility] AmericaUREA NITROGEN, URINE [id number] 11:20:00 Test Item Value Reference Range Interpretation Comments UREA N UR (test code = 6279300286) 273 mg/dL [facility] AmericaPrepare Packed RBC (in units), 1 Units 2020-03-28 11:18:22 Test Item Value Reference Range Interpretation Comments Cross Match Result Compatible (test code = 4409) ISBT Blood Type Code (test code = 169982) Unit Blood Type (test O Neg code = 4410) Unit Number (test [id number] code = 4411) Blood Expiration Date & Time (test code = 103771) Status Information Issued (test code = 4412) Product Red Blood Cells Identification (test code = 4413) Product Code (test A0496T96 Performed at [facility] code = 4414) Laboratory Services - [facility] Blood [address] [address]Bxxf Free: [phone] A No. [id number] [facility] AmericaMagnesium [id number] 11:04:00 Test Item Value Reference Range Interpretation Comments MAGNESIUM (test code = 2393319735) 2.0 mg/dL 1.7-2.4 Lab Interpretation (test code = Normal 43964-1) [facility] AmericaPhosphorus [id number] 11:04:00 Test Item Value Reference Range Interpretation Comments PHOSPHORUS (test code = 0145940634) 5.2 mg/dL 2.5-5 H Lab Interpretation (test code = Abnormal 30371-5) [facility] AmericaBASIC METABOLIC PANEL (NA, K, CL, CO2, GLUCOSE, BUN, CREATININE, CA)2020-03-28 10:59:00 Test Item Value Reference Range Interpretation Comments NA (test code = 137 mmol/L 135-145 9123917839) K (test code = 4.1 mmol/L 3.5-5 8503153000) CL (test code = 109 mmol/L 98-108 H 4809709612) CO2 TOTAL (test code = 20 mmol/L 23-31 L 8613690095) AGAP (test code = 2-16 7625456302) BUN (test code = 32 mg/dL 7-23 H 3768533085) GLUCOSE (test code = 126 mg/dL 70-110 H 2361128087) CREATININE (test code = 1.16 mg/dL 0.5-1.04 H 7872334072) CALCIUM (test code = 8.3 mg/dL 8.6-10.6 L 5751820936) eGFR Calculation mL/min/1.73m2 (Non-) (test code = 0064379801) eGFR Calculation mL/min/1.73m2 () (test code = 1657647481) LEI (test code = LEI) Association of Glomerular Filtration Rate (GFR) and Staging of Kidney Disease* + --+ --+ ------+| GFR (mL/min/1.73 m2) ?| With Kidney Damage ?| ?Without Kidney Damage+ --------+ --------+ +| ?>90 ?| ?Stage one ?| ? Normal ?+ ---+ ---+ -------+| ?60-89 ?| ?Stage two ?| ? Decreased GFR ? + --+ --+ ------+| ?30-59 ?| ?Stage three ?| ? Stage three ? + --+ --+ ------+| ?15-29 ?| ?Stage four ? | ? Stage four ?+ ---+ ---+ -------+| ?<15 (or dialysis) ? ?| ?Stage five ? | ? Stage five ?+ ---+ ---+ -------+ *Each stage assumes the associated GFR level has been in effect for at least three months. ?Stages 1 to 5, with or without kidney disease, indicate chronic kidney disease. Notes: Determination of stages one and two (with eGFR >59mL/min/1.73 m2) requires estimation of kidney damage for at least three months as defined by structural or functional abnormalities of the kidney, manifested by either:Pathological abnormalities or Markers of kidney damage (including abnormalities in the composition of the blood or urine or abnormalities in imaging tests). Lab Interpretation Abnormal (test code = 64927-8) [facility] AmericaType and Screen - ONCE [id number] 10:56:25 Test Item Value Reference Range Interpretation Comments ABO & RH (test code O POSITIVE Performe d at [facility] = 20) Laboratory Serv ices - [facility] Blood Bank[address] [facility] s [address]Noas Free: [phone] A No. [id number] IAT (test code = Negative Performed a t [facility] 1185) Laboratory [facility] Blood [facility] [facility] s [address]Ylns Free: [phone] A No. [id number] [facility] WITHOUT [id number] 10:53:00 Test Item Value Reference Range Interpretation Comments WBC (test code = See_Comment [Automated message] 6690-2) The system [employer] generated this result transmitted ref erence range: 4.30 - 1 1.10 10*3/?L. The reference range was not used to int erpret this result as normal/abnormal . RBC (test code = 789-8) See_Comment L [Au tomated message] The system [employer] generated this result transmitted ref erence range: 3.93 - 5 .25 10*6/?L. The reference range was not used to int erpret this result as normal/abnormal . HGB (test code = 718-7) 4.8 g/dL 11.6-15 LL HCT (test code = 17.6 % 35.7-45.2 L 4544-3) MCH (test code = 785-6) 18.3 pg 25.9-32.8 L MCV (test code = 787-2) 67.2 fL 80.6-95.5 L MCHC (test code = 27.3 g/dL 31.6-35.1 L 786-4) PLT (test code = 777-3) See_Comment L [Au tomated message] The system [employer] generated this result transmitted ref erence range: 166 - 35 8 10*3/?L. The reference range was not used to int erpret this result as normal/abnormal . MPV (test code = Not Measure d 41526-5) RDW-CV (test code = 25.0 % 12-15.5 H 788-0) RDW-SD (test code = 58.6 fL 39-49.9 H 61655-3) NRBC x10^3 (test code = See_Comment [Au tomated message] 7512067886) The system [employer] generated this result transmitted ref erence range: 10*3/?L. The reference range was not used to int erpret this result as normal/abnormal . NRBC/100 WBC (test code See_Comment [Au tomated message] = 8771521582) The system [facility] generated this result transmitted ref erence range: 0.0 - 10 .0 /100 WBCs. The reference range was not used to int erpret this result as normal/abnormal . IPF % (test code = 6.7 % 1.3-7.7 Platelet count 2901084338) measured by fluorescence me thod. Lab Interpretation Abnormal (test code = 67708-3) [facility] AmericaProthrombin Time / [id number] 10:43:00 Test Item Value Reference Range Interpretation Comments PROTIME PATIENT (test See_Comment [Auto mated message] code = 5964-2) The system [facility] generated this result transmitted ref erence range: 10.1 - 1 2.6 Seconds. The re ference range was not u sed to interpret this result as normal/abnor mal. INR (test code = 6301-6) Nor mal INR <1.1; Warfarin Therap eutic range 2.0 to 3. 0 or 2.5 to 3.5, dep ending upon the indica tions. Lab Interpretation (test Normal code = 59456-7) [facility] AmericaaPTT2020-08-09 10:43:00 Test Item Value Reference Range Interpretation Comments APTT Patient (test code See_Comment L [Au tomated message] = 3173-2) The system [facility] [employer] generated this result transmitted ref erence range: 26 - 36 Seconds. The reference range was not used to int erpret this result as normal/abnormal . Lab Interpretation (test Abnormal code = 41122-6) [facility] AmericaType and Screen - ONCE [id number] 06:17:17 Test Item Value Reference Range Interpretation Comments ABO & RH (test code O Positive Performe d at [facility] = 20) Laboratory Serv [facility] Blood [address] [place] [address]Olhh Free: [phone] A No. [id number] IAT (test code = Negative Performed a t [facility] 1185) Laboratory [facility] Blood Bank[address] [place] [address] Free: [phone] A No. [id number] [facility] AmericaABORH [id number] 06:08:38 Test Item Value Reference Range Interpretation Comments ABO & RH (test code O Positive Performe d at [facility] = 20) Laboratory Serv [facility] Blood Bank[address] [place], [place] [address]Toll Free: [phone] A No. [id number] [facility] AmericaTroponin [id number] 05:08:00 Test Item Value Reference Range Interpretation Comments TROPONIN I (test <0.012 See_Comment [Automated code = 4525177652) message] The system which generated this result transmitted reference range : <=0.034 ng/mL. The reference range was not used to interpr et this result as normal/abnormal . LEI (test code = Equal or Less than LEI) 0.034 ng/ml---Normal ?Note: Cardiac troponin begins to rise 3-4 hours after the onset of ischemia. Repeat in 4-6 hours if the sample was drawn within 3-4 hours of the onset of the symptom and found normal. Between 0.035 and 0.120 ng/mL--- Borderline. Questionable myocardial injury or necrosis ? ?Note: Serial measurement may be necessary to confirm or exclude the diagnosis of myocardial injury or necrosis; Clinical correlation (symptoms, EKGs, imaging studies, and others) required; Repeat in 4-6 hours if clinically indicated. ? Equal or Higher than 0.121 ng/mL---Abnormal. Myocardial Injury or Necrosis Likely ? Biotin has been reported to cause a negative bias, interpret results relative to patient's use of biotin. ? Lab Interpretation Normal (test code = 78820-8) [facility] 1 [id number] 05:03:46Findings and Impression: ?Suboptimal inspiratory volumes resulting inbronchovascular crowding and scattered subsegmental atelectasis especiallyin the lung bases. Superimposed infection in this region would be difficultto exclude. Correlate clinically. No definite focal consolidation identified. No pleural effusion orpneumothorax. Multiple punctate densities projecting over the right chest and rightadnexal region are either external to the patient or within the softtissues. Correlate with patient history. Heart size is normal to mildly enlarged. No acute osseous abnormality PORTABLE CHEST RADIOGRAPH History: sob Comparison: None available. TECHNIQUE: AP view of the chest. [facility], Radiant Results Inft User - 03/28/2020 12:04 AM CDTPORTABLE CHEST RADIOGRAPHHistory: sob Comparison: None available.TECHNIQUE: AP view of the chest.IMPRESSIONFindings and Impression: Suboptimal inspiratory volumes resulting inbronchovascular crowding and scattered subsegmental atelectasis especiallyin the lung bases. Superimposed infection in this region would be difficultto exclude. Correlate clinically.No definite focal consolidation identified. No pleural effusion orpneumothorax.Multiple punctate densities projecting over the right chest and rightadnexal region are either external to the patient or within the soft tissues. Correlate with patient history.Heart size is normal to mildly enlarged. No acute osseous abnormalitySurgery Specialty Hospitals of AmericaCOVID-19 (ID NOW RAPID TESTING)2020-03-28 05:03:00 Test Item Value Reference Range Interpretation Comments SARS-CoV-2 Rapid ID NOW Not Detected Not Detected (test code = 16716-2) LEI (test code = LEI) ID NOW COVID-19 Assay is an isothermal nucleic acid amplification test intended for the qualitative detection of nucleic acid from SARS-CoV-2 viral RNA in nasopharyngeal (SHELLS INSPECTOR) specimens. It is used under Emergency Use Authorization (EUA) by FDA. The limit of detection (LOD) of the assay is 125 Genome Equivalents/mL. A positive result is indicative of the presence of SARS-CoV-2 RNA. ?Clinical correlation with patient history and other diagnostic [...] for repeat patient testing if clinically indicated. Lab Interpretation Normal (test code = 86961-1) [facility] with [id number] 04:59:00 Test Item Value Reference Range Interpretation Comments WBC (test code = See_Comment [Automated 6690-2) message] The sy stem which generated this result transmitted reference range : 4.30 - 11.10 10*3/?L. The reference range was not used to interpret this result as normal/abnormal . RBC (test code = See_Comment L [Automated 789-8) message] The sy stem which generated this result transmitted reference range : 3.93 - 5.25 10*6/?L. The reference range was not used to interpret this result as normal/abnormal . HGB (test code = 4.0 g/dL 11.6-15 LL 718-7) HCT (test code = 15.6 % 35.7-45.2 L 4544-3) MCV (test code = 62.2 fL 80.6-95.5 L 787-2) MCH (test code = 15.9 pg 25.9-32.8 L 785-6) MCHC (test code = 25.6 g/dL 31.6-35.1 L 786-4) RDW-SD (test code = 47.0 fL 39-49.9 95298-8) RDW-CV (test code = 21.6 % 12-15.5 H 788-0) PLT (test code = See_Comment L [Automated 777-3) message] The sy stem which generated this result transmitted reference range : 166 - 358 10*3/ ?L. The reference r dez was not used to interpret this result as normal/abnormal . MPV (test code = Not Measure d 95273-6) NRBC/100 WBC (test See_Comment [Automat ed code = 0323987378) message] The system which generated this result transmitted reference range : 0.0 - 10.0 /100 WBCs. The refer ence range was not u sed to interpret th is result as normal/abnormal . NRBC x10^3 (test code See_Comment [Auto mated = 1190750550) message] The s ystem which generated this result transmitted reference range : 10*3/?L. The reference range was not used to interpret this result as normal/abnormal . GRAN MAT (NEUT) % 65.0 % (test code = 770-8) IMM GRAN % (test code 0.50 % = 3397347005) LYMPH % (test code = 24.1 % 736-9) MONO % (test code = 9.2 % 5905-5) EOS % (test code = 1.0 % 713-8) BASO % (test code = 0.2 % 706-2) GRAN MAT x10^3(ANC) 3.80 10*3/uL 1.88-7.09 (test code = 3484372874) IMM GRAN x10^3 (test 0.03 10*3/uL 0-0.06 code = 7146461576) LYMPH x10^3 (test code 1.41 10*3/uL 1.32-3.29 = 731-0) MONO x10^3 (test code 0.54 10*3/uL 0.33-0.92 = 742-7) EOS x10^3 (test code = 0.06 10*3/uL 0.03-0.39 711-2) BASO x10^3 (test code <0.03 0.01-0.07 = 704-7) Lab Interpretation Abnormal (test code = 58604-2) [facility] Metabolic Panel (NA, K, CL, CO2, GLUCOSE, BUN, CREATININE, CA)2020-03-28 04:57:00 Test Item Value Reference Range Interpretation Comments NA (test code = 137 mmol/L 135-145 8912147388) K (test code = 4.1 mmol/L 3.5-5 8042035907) CL (test code = 106 mmol/L 98-108 6979328281) CO2 TOTAL (test code = 20 mmol/L 23-31 L 9331448339) AGAP (test code = 2-16 9671596961) BUN (test code = 29 mg/dL 7-23 H 1263394125) GLUCOSE (test code = 137 mg/dL 70-110 H 0444134033) CREATININE (test code = 1.22 mg/dL 0.5-1.04 H 8359131426) CALCIUM (test code = 8.7 mg/dL 8.6-10.6 1856424196) eGFR Calculation mL/min/1.73m2 (Non-) (test code = 7587210578) eGFR Calculation mL/min/1.73m2 () (test code = 9953328159) LEI (test code = LEI) Association of Glomerular Filtration Rate (GFR) and Staging of Kidney Disease* + --+ --+ ------+| GFR (mL/min/1.73 m2) ?| With Kidney Damage ?| ?Without Kidney Damage+ --------+ --------+ +| ?>90 ?| ?Stage one ?| ? Normal ?+ ---+ ---+ -------+| ?60-89 ?| ?Stage two ?| ? Decreased GFR ? + --+ --+ ------+| ?30-59 ?| ?Stage three ?| ? Stage three ? + --+ --+ ------+| ?15-29 ?| ?Stage four ? | ? Stage four ?+ ---+ ---+ -------+| ?<15 (or dialysis) ? ?| ?Stage five ? | ? Stage five ?+ ---+ ---+ -------+ *Each stage assumes the associated GFR level has been in effect for at least three months. ?Stages 1 to 5, with or without kidney disease, indicate chronic kidney disease. Notes: Determination of stages one and two (with eGFR >59mL/min/1.73 m2) requires estimation of kidney damage for at least three months as defined by structural or functional abnormalities of the kidney, manifested by either:Pathological abnormalities or Markers of kidney damage (including abnormalities in the composition of the blood or urine or abnormalities in imaging tests). Lab Interpretation Abnormal (test code = 21257-6) [facility] AmericaHepatic Function Panel (ALB, T.PRO, BILI T, BU/BC, ALT, AST, ALK PHOS)2020-03-28 04:57:00 Test Item Value Reference Range Interpretation Comments TOTAL BILI (test code = 3695122035) 0.7 mg/dL 0.1-1.1 BILI UNCON (test code = 7472710433) 0.8 mg/dL 0.1-1.1 BILI CONJ (test code = 2682768818) 0.0 mg/dL 0-0.3 T PROTEIN (test code = 7576384204) 6.8 g/dL 6.3-8.2 ALBUMIN (test code = 4245521241) 3.7 g/dL 3.5-5 ALK PHOS (test code = 8184922681) 100 U/L 34-122 ALTv (test code = 1742-6) 15 U/L 5-35 AST(SGOT) (test code = 3564227238) 31 U/L 13-40 Lab Interpretation (test code = Normal 34116-4) [facility] AmericaLipase [id number] 04:57:00 Test Item Value Reference Range Interpretation Comments LIPASE (test code = 6313377069) 188 U/L 0-220 Lab Interpretation (test code = Normal 58185-9) [facility] AmericaUrinalysis2020-08-09 04:53:00 Test Item Value Reference Range Interpretation Comments APPEARANCE (test code = Hazy Clear A 5976393600) COLOR (test code = Yellow Yellow 3692094874) PH (test code = 4.8-8.0 9832726121) SP GRAVITY (test code = 1.003-1.030 4600893203) GLU U QUAL (test code = Normal Normal 5474230020) BLOOD (test code = Negative Negative 1591131414) KETONES (test code = Negative Negative 4591337539) PROTEIN (test code = Negative Negative 2887-8) UROBILIN (test code = 2.0 mg/dL Normal A 9051886951) BILIRUBIN (test code = Negative Negative 1958676386) NITRITE (test code = Negative Negative 0341071847) LEUK SIMONE (test code = 25/uL Negative A 5143094237) RBC/HPF (test code = See_Comment [Autom ated message] 5318132340) The system [employer] generated this result transmit jordana reference range : 0 - 3 HPF. The refe rence range was not u sed to interpret th is result as normal/abnormal . WBC/HPF (test code = See_Comment H [Autom ated message] 3653279822) The system [employer] generated this result transmit jordana reference range : 0 - 5 HPF. The refe rence range was not u sed to interpret th is result as normal/abnormal . BACTERIA (test code = Few Negative A 4824469448) MUCOUS (test code = Slight Negative LPF A 7301090139) SQ EPITH (test code = HPF 2106201206) HYAL CAST (test code = See_Comment H [Aut omated message] 1288702811) The system [employer] generated this result transmit jordana reference range : <=2 LPF. The refere nce range was not u sed to interpret th is result as normal/abnormal . Lab Interpretation (test Abnormal code = 38361-9) [facility]"
[2021-07-27] MEDS ORDERED: PANTOPRAZOLE 40 MG INJ ONE (02:02)
[2021-07-27] MEDS ORDERED: NA CHLORIDE 0.9% 250 ML ONE ×3 (02:03→12:04)
[2021-07-27] MEDS ORDERED: ALBUTEROL INHALER 60 PUFF/8 GM IH ONE (02:04)
[2021-07-27 02:19] LABS: Urine Blood Negative (Negative); Urine Glucose Negative (Negative); Urine Protein Negative (Negative); Urine Specific Gravity 1.015 (1.005-1.030); Urine pH 5.5 (5.0-7.0)
[2021-07-27 02:49] LABS: Urine Bacteria <20 /HPF (<20); Urine Urothelial Cells <5 /HPF (NONE SEEN)
[2021-07-27 02:50] LABS: Urine RBC NONE SEEN /HPF (NONE SEEN)
[2021-07-27 03:13] LABS: Protime INR 1.1
[2021-07-27 03:14] LABS: Absolute Lymphocytes (CBC) 1.1 K/uL (0.7-4.9); Basophils % 1.1 % (0-1.3); MPV 8.9 fL (7.6-11.3); RBC Red Blood Cell Count 2.68 M/uL (3.86-4.86)
[2021-07-27 03:22] LABS: Hematocrit 15.5 % (36.0-45.0)
[2021-07-27 03:25] LABS: ALT/SGPT 18 U/L (12-78); AST/SGOT 27 U/L (15-37); Albumin 3.2 g/dL (3.4-5.0); Alkaline Phosphatase 128 U/L (45-117); BUN Blood Urea Nitrogen 26 mg/dL (7-18); Bicarbonate 20 mmol/L (21-32); Bilirubin Direct < 0.1 mg/dL (0-0.2); Bilirubin Total 0.7 mg/dL (0.2-1.0); Glucose Level 113 mg/dL (74-106); Magnesium 2.3 mg/dL (1.8-2.4); NT PRO-BNP 448 pg/mL (<450); Potassium 4.1 mmol/L (3.5-5.1); Protein, Total 6.9 g/dL (6.4-8.2); Sodium Level 144 mmol/L (136-145); Troponin (Emerg Dept Use Only) < 0.02 ng/mL (0.0-0.045)
[2021-07-27 04:02] LABS: SARS-COV-2 RT PCR NEGATIVE (NEGATIVE)
--- NOTE | 2021-07-27 04:24 | ER ---
Nurse's Notes [facility] Name: Kendal Singh Age: 75 yrs Sex: Female : 1945 Arrival Date: 07/26/2021 Time: 21:[address] Private MD: Diagnosis: GI Bleed/ Gastrointestinal hemorrhage, unspecified Presentation: 07/26 21:11 Chief complaint: Patient states: Weakness. da3 21:17 Coronavirus screen: Vaccine status: Patient reports being unvaccinated. Ebola Screen: da3 No symptoms or risks identified at this time. Risk Assessment: Do you want to hurt yourself or someone else? Patient reports no desire to harm self or others. 21:17 Method Of Arrival: EMS: [facility] da3 21:17 Acuity: VALERIY 3 da3 07/27 02:49 Initial Sepsis Screen: Does the patient meet any 2 criteria? No. Patient's initial tw5 sepsis screen is negative. Does the patient have a suspected source of infection? No. Patient's initial sepsis screen is negative. Onset of symptoms is unknown. Triage Assessment: 07/26 21:19 General: Appears in no apparent distress. comfortable, Behavior is calm, cooperative, da3 appropriate for age. Historical: - Immunization history:: Client reports having NOT received the Covid vaccine. - Social history:: Smoking status: Patient reports the use of cigarette tobacco products, smokes one pack cigarettes per day. Screenin/08 02:44 Abuse screen: Denies threats or abuse. Denies injuries from another. Nutritional tw5 screening: No deficits noted. Tuberculosis screening: No symptoms or risk factors identified. Fall Risk Secondary diagnosis (15 points) IV access (20 points). Ambulatory Aid- None/Bed Rest/Nurse Assist (0 pts). Gait- Weak (10 pts.). Mental Status- Overestimates/Forgets Limitations (15 pts.). Assessment: 02:44 General: Reports " I had been feeling weak for the past month. I decided today that I tw5 needed to be seen because I was feeling the same why i had last time I needed a blood transfusion. Pain: Pain currently is 0 out of 10 on a pain scale. 02:48 Cardiovascular: Capillary refill < 3 seconds is brisk in bilateral fingers. tw5 Respiratory: Airway is patent Trachea midline Respiratory effort is even, unlabored, Breath sounds are coarse bilaterally. 04:00 General: Patient called out " NURSE NURSE I NEED HELP SOMEONE HELP ME" when staff tw5 members arrived patient has asked for more warm blankets. Warm blankets provided. . 04:30 Reassessment: Patient appears in no apparent distress at this time. No changes from tw5 previously documented assessment. Patient and/or family updated on plan of care and expected duration. Pain level reassessed. 05:00 General: Patient repositioned, warm blankets provided, along with socks per patients tw5 request. . 05:00 General: Patient called out " NURSE, I NEED MY NURSE, SOMEONE HELP ME" Nursing staff tw5 arrived, patient stated she wanted to needed help rolling over. Patient is able to complete ADL's without assistance. " I just wanted to make sure I wasn't getting tangled up in anything with all these wires." Patient also requested " I cannot sleep with all these wires, can you take them off.". 05:45 General: Blood transfusion began. Please see attached flow sheet. tw5 07:00 Reassessment: Patient appears in no apparent distress at this time. No changes from tw2 previously documented assessment. Patient and/or family updated on plan of care and expected duration. Pain level reassessed. 08:20 Reassessment: Patient appears in no apparent distress at this time. No changes from tw2 previously documented assessment. Patient and/or family updated on plan of care and expected duration. Pain level reassessed. Vital Signs: 07/26 21:17 BP 135 / 51; Pulse 104; Resp 20; Temp 99.1; Pulse Ox 98% on R/A; Weight 85.73 kg; da3 Height 5 ft. 4 in. (162.56 cm); 07/27 02:44 BP 130 / 91; Pulse 90; Resp 20; Pulse Ox 92% ; Pain 0/10; tw5 07:07 BP 122 / 56; Pulse 92; Resp 18; Pulse Ox 100% on R/A; tw2 07/26 21:17 Body Mass Index 32.44 (85.73 kg, 162.56 cm) da3 ED Course: 07/26 21:10 Patient arrived in ED. da3 21:19 Triage completed. da3 07/27 01:25 Corbin Hay MD is Attending Physician. [facility] 01:53 Stefanie Oliveira is Primary Nurse. tw5 02:19 XRAY Chest (1 view) In Process Unspecified. EDMS 02:38 Basic Metabolic Panel Sent. tw5 02:38 Basic Metabolic Panel Sent. tw5 02:44 Awaiting lab results. Patient moved to CT. tw5 02:44 Initial lab(s) drawn, by me, sent to lab. COVID swab sent to lab. Flu and/or RSV swab tw5 sent to lab. Inserted saline lock: 20 gauge in right hand, using aseptic technique. Blood collected. Maintain EMS IV. Dressing intact. Site clean \\T\\ dry. Gauge \\T\\ site: 20 LAC. Patient maintains SpO2 saturation greater than 95% on room air. 02:44 Patient has correct armband on for positive identification. Placed in gown. Bed in low tw5 position. Call light in reach. Side rails up X 1. conference reservationist on. Pulse ox on. NIBP on. Door closed. Noise minimized. Lights dimmed. Warm blanket given. Verbal reassurance given. 02:49 No provider procedures requiring assistance completed. tw5 03:21 CT Abd/Pelvis - IV Contrast Only In Process Unspecified. EDMS 03:22 CT Head Brain wo Cont In Process Unspecified. EDMS 03:54 Type And Screen Sent. tw5 03:55 COVID-19/FLU A+B/RSV (Document "Date of Onset" if Symptomatic) Sent. tw5 03:57 Manual Differential Sent. tw5 04:23 Young Mcmanus DO is Hospitalizing Provider. [facility] 05:43 Packed RBC Leukored Sent. tw5 05:43 Consent for blood and/or blood product transfusion explained by staff, explained by tw5 physician, signed by patient. 07:04 Primary Nurse role handed off by Stefanie Oliveira tw2 07:04 Dejah Loco, RN is Primary Nurse. tw2 08:20 Patient admitted, IV remains in place. tw2 Administered Medications: 02:30 Drug: Albuterol HFA Inhaler 2 puffs Route: Inhalation; tw5 02:38 Drug: ProTONIX (pantoprazole) 80 mg Route: IVP; Site: right hand; tw 02:38 Drug: ProTONIX (pantoprazole) 8 mg/hr Route: IV; Rate: 25 ml/hr; Site: right hand; tw5 Outcome: 04:23 Decision to Hospitalize by Provider. [facility] 08:22 Patient left the ED. 2 08:22 Admitted to Med/surg accompanied by nurse, via stretcher, Report called to tw2 DANIEL Peña 08:22 Condition: stable 08:22 Instructed on the need for admit. Signatures: Dispatcher [employer] EDDejah Reyes RN RN 2 Corbin Hay MD MD 7 Joshua Veronica RN RN 3 Stefanie Oliveira 5 Corrections: (The following items were deleted from the chart) 07/26 21:19 21:19 PMHx: Asthma; da3 3 21:19 21:19 PMHx: Hypertension; 3 3 07/27 02:49 02:44 General: Reports " I had been feeling weak for the past month. I decided today 5 that [facility] 03:58 03:57 PACKED RBC LEUKORED -1+BB.LAB.BRZ drawn and sent. [facility] EDMS 03:58 03:57 Antibody Screen drawn and sent. [facility] EDCT 03:58 03:57 ABO/RH typing drawn and sent. [address]
--- NOTE | 2021-07-27 04:24 | EDPHYS ---
Physician Documentation [facility] Name: Kendal Singh Age: 75 yrs Sex: Female : 1945 Arrival Date: 07/26/2021 Time: 21:[address] Private MD: ED Physician Corbin Hay HPI: 07/27 01:46 This 75 yrs old Female presents to ER via EMS with complaints of Weakness. mh7 01:46 The patient has shortness of breath with light activity. Onset: The symptoms/episode mh7 began/occurred yesterday. Duration: The symptoms are intermittent, with no pattern. The patient's shortness of breath is aggravated by coughing, exertion, light activity, is alleviated by nothing. Associated signs and symptoms: Pertinent positives: dizziness, Pertinent negatives: chest pain, productive cough, diaphoresis, fever, hemoptysis, loss of consciousness, nausea, numbness in extremities, visual changes, vomiting. Severity of symptoms: At their worst the symptoms were moderate today, in the emergency department the symptoms have improved moderately. Patient states that she has had shortness of breath, dizziness, cough, generalized weakness/fatigue that are worse with exertion over the past day.. Historical: - Immunization history:: Client reports having NOT received the Covid vaccine. - Social history:: Smoking status: Patient reports the use of cigarette tobacco products, smokes one pack cigarettes per day. ROS: 01:46 Constitutional: Negative for fever, chills, and weight loss, Eyes: Negative for injury, mh7 pain, redness, and discharge, ENT: Negative for injury, pain, and discharge, Neck: Negative for injury, pain, and swelling, Cardiovascular: Negative for chest pain, palpitations, and edema, Abdomen/GI: Negative for abdominal pain, nausea, vomiting, diarrhea, and constipation, Back: Negative for injury and pain, : Negative for injury, bleeding, discharge, and swelling, MS/Extremity: Negative for injury and deformity, Skin: Negative for injury, rash, and discoloration, Psych: Negative for depression, anxiety, suicide ideation, homicidal ideation, and hallucinations, Allergy/Immunology: Negative for hives, rash, and allergies, Endocrine: Negative for neck swelling, polydipsia, polyuria, polyphagia, and marked weight changes, Hematologic/Lymphatic: Negative for swollen nodes, abnormal bleeding, and unusual bruising. Exam: 01:46 Constitutional: This is a well developed, well nourished patient who is awake, alert, mh7 and in no acute distress. Head/Face: Normocephalic, atraumatic. Eyes: Pupils equal round and reactive to light, extra-ocular motions intact. Lids and lashes normal. Conjunctiva and sclera are non-icteric and not injected. Cornea within normal limits. Periorbital areas with no swelling, redness, or edema. Neck: Trachea midline, no thyromegaly or masses palpated, and no cervical lymphadenopathy. Supple, full range of motion without nuchal rigidity, or vertebral point tenderness. No Meningismus. Chest/axilla: Normal chest wall appearance and motion. Nontender with no deformity. No lesions are appreciated. 01:46 Abdomen/GI: Soft, non-tender, with normal bowel sounds. No distension or tympany. No guarding or rebound. No evidence of tenderness throughout. Back: No spinal tenderness. No costovertebral tenderness. Full range of motion. Skin: Warm, dry with normal turgor. Normal color with no rashes, no lesions, and no evidence of cellulitis. MS/ Extremity: Pulses equal, no cyanosis. Neurovascular intact. Full, normal range of motion. Neuro: Awake and alert, GCS 15, oriented to person, place, time, and situation. Cranial nerves II-XII grossly intact. Motor strength 5/5 in all extremities. Sensory grossly intact. Cerebellar exam normal. Normal gait. Psych: Awake, alert, with orientation to person, place and time. Behavior, mood, and affect are within normal limits. 01:46 Cardiovascular: Rate: tachycardic, Rhythm: regular, Pulses: no pulse deficits are appreciated, Heart sounds: normal, normal S1and S2, Edema: is not appreciated, JVD: is not appreciated. 01:46 Respiratory: the patient does not display signs of respiratory distress, Respirations: prolonged exhalation, that is mild, Breath sounds: rhonchi, that are mild, are scattered, Respiratory rate: 20 01:46 Abdomen/GI: Rectal exam: Stool: guaiac positive, black. [facility] Vital Signs: 12 21:17 BP 135 / 51; Pulse 104; Resp 20; Temp 99.1; Pulse Ox 98% on R/A; Weight 85.73 kg; da3 Height 5 ft. 4 in. (162.56 cm); 07/27 02:44 BP 130 / 91; Pulse 90; Resp 20; Pulse Ox 92% ; Pain 0/10; tw5 07:07 BP 122 / 56; Pulse 92; Resp 18; Pulse Ox 100% on R/A; tw2 07/26 21:17 Body Mass Index 32.44 (85.73 kg, 162.56 cm) da3 MDM: 04:22 Differential diagnosis: Anemia Anxiety Reaction asthma, Bronchitis CHF exacerbation, mh7 Chronic Obstructive Pulmonary Disease Myocardial Infarction pneumonia, Pneumothorax Psychogenic pulmonary edema, reactive airway disease. Data reviewed: vital signs, nurses notes, lab test result(s), cardiac enzymes, CBC, electrolytes, EKG, radiologic studies, CT scan, plain films. Data interpreted: Pulse oximetry: on room air is 95 %. Interpretation: normal. Counseling: I had a detailed discussion with the patient and/or guardian regarding: the historical points, exam findings, and any diagnostic results supporting the discharge/admit diagnosis, the presence of at least one elevated blood pressure reading (>120/80) during this emergency department visit, lab results, radiology results, the need for further work-up and treatment in the hospital. Response to treatment: the patient's symptoms have mildly improved after treatment. 04:23 Patient medically screened. [facility] 07/27 01:40 Order name: Basic Metabolic Panel [facility] 07/27 01:40 Order name: CBC with Diff [facility] 07/27 01:40 Order name: LFT's; Complete Time: 03:27 [facility] 07/27 01:40 Order name: Magnesium; Complete Time: 03:27 [facility] 07/27 01:40 Order name: NT PRO-BNP; Complete Time: 03:27 [facility] 07/27 01:40 Order name: PT-INR; Complete Time: 03:27 [facility] 07/27 01:40 Order name: Troponin (emerg Dept Use Only); Complete Time: 03:27 [facility] 07/27 01:41 Order name: Basic Metabolic Panel; Complete Time: 03:27 [facility] 07/27 01:41 Order name: COVID-19/FLU A+B/RSV (Document "Date of Onset" if Symptomatic); Complete [facility] Time: 04:07/27 02:18 Order name: Urine Dipstick-Ancillary; Complete Time: 02:25 MS 07/27 02:18 Order name: Urine Microscopic Only; Complete Time: 02:52 2 07/27 02:43 Order name: Type And Screen [facility] 07/27 03:22 Order name: Manual Differential [facility] 07/27 01:40 Order name: XRAY Chest (1 view) [facility] 07/27 01:40 Order name: EKG; Complete Time: 01:41 [facility] 07/27 01:40 Order name: Cardiac monitoring; Complete Time: 02:38 [facility] 07/27 01:40 Order name: EKG - Nurse/Tech; Complete Time: 03:56 [facility] 07/27 01:40 Order name: IV Saline Lock; Complete Time: 03:56 [facility] 07/27 01:40 Order name: Labs collected and sent; Complete Time: 03:56 [facility] 07/27 01:59 Order name: CT Abd/Pelvis - IV Contrast Only [facility] 07/27 01:59 Order name: CT Head Brain wo Cont [facility] 07/27 03:58 Order name: Packed RBC Leukored [facility] 07/27 04:21 Order name: ABO/RH no charge [facility] 07/27 06:40 Order name: CREATININE WHOLE BLOOD [facility] 07/27 01:40 Order name: O2 Per Protocol; Complete Time: 03:56 [facility] 07/27 01:40 Order name: O2 Sat Monitoring; Complete Time: 03:56 [facility] 07/27 01:40 Order name: Urine Dipstick-Ancillary (obtain specimen); Complete Time: 02:03 [facility] 07/27 03:24 Order name: Transfuse; Complete Time: 05:43 7 Administered Medications: 02:30 Drug: Albuterol HFA Inhaler 2 puffs Route: Inhalation; tw 02:38 Drug: ProTONIX (pantoprazole) 80 mg Route: IVP; Site: right hand; 02:38 Drug: ProTONIX (pantoprazole) 8 mg/hr Route: IV; Rate: 25 ml/hr; Site: right hand; tw Disposition Summary: 07/27/21 04:23 Hospitalization Ordered Hospitalization Status: Inpatient Admission [facility] Provider: Young Mcmanus Cullen Condition: Stable [facility] Problem: new [facility] Symptoms: have improved [facility] Bed/Room Type: Standard [facility] Location: Telemetry/MedSurg (Inpatient)(07/27/21 05:37) mw Room Assignment: 204(07/27/21 05:37) mw Diagnosis - GI Bleed/ Gastrointestinal hemorrhage, unspecified [facility] Forms: - Medication Reconciliation Form 7 - SBAR form 7 Signatures: Dispatcher [employer] EDMS Macey Parekh RN RN mw Thomas Henao, ADULT AND PEDIATRIC NEUROLOGIST-C ADULT AND PEDIATRIC NEUROLOGIST-Cla1 Corbin Hay MD MD 7 Joshua Veronica RN RN da3 Stefanie Oliveira tw5 Corrections: (The following items were deleted from the chart) 07/26 21:19 21:19 PMHx: Asthma; da3 da3 21:19 21:19 PMHx: Hypertension; da3 da3 07/27 03:58 03:25 PACKED RBC LEUKORED -1+BB.LAB.BRZ ordered. EDMS EDMS 03:58 03:25 ABO/RH typing ordered. EDMS EDMS 03:58 03:25 Antibody Screen ordered. EDMS EDMS 04:28 04:23 Telemetry/MedSurg (Inpatient) 7 04:28 04:23 7 05:37 04:28 [facility] ER HOLD mw 05:37 04:28 ERHOLD- mw
--- NOTE | 2021-07-27 04:32 | P.HP ---
Certification for Inpatient Patient admitted to: Inpatient With expected LOS: >2 Midnights Patient will require the following post-hospital care: None Practitioner: I am a practitioner with admitting privileges, knowledge of patient current condition, hospital course, and medical plan of care. Services: Services provided to patient in accordance with Admission requirements found in Title 42 Section 412.3 of the Code of Federal Regulations Patient History Date of Service: 07/27/21 Primary Care Provider: Dr. Nevarez Reason for admission: UGIB History of Present Illness: 75-year-old female with history of asthma, hypertension and previous GI bleed presents the emergency department for generalized weakness and dark st ools intermittently over the course of the last 1 month. Patient reports that she gets very short of breath with exertion. Patient was evaluated in the emergency department found to be significantly anemic with hemoglobin 4.1 hematocrit 15.5 platelets 105 white blood cell 3.8 red blood cell 2.68 bicarb 20 BUN 26 GFR 58 stool melanotic, guaiac positive CT abdomen pelvis with IV contrast demonstrates cirrhotic liver with small trace of subscapular hepatic fluid, mild splenomegaly, bilateral renal cysts and sigmoid diverticulosis without evidence of diverticulitis. Patient stable at this time heart rate around 90 blood pressure 127/80, patient being transfused in the emergency department ED provider wishes to admit for further evaluation and management. Allergies codeine [Codeine] Allergy (Intermediate, Verified 04/14/20 14:12) Nausea/Vomiting Home Medications: Albuterol Inhaler [Ventolin Inhaler*] 2 puff PO PRN 04/14/20 Ferrous Sulfate 325 mg PO INPT 04/14/20 Losartan Potassium [Cozaar*] 50 mg PO DAILY 04/14/20 Pantoprazole [Protonix Tab*] 40 mg PO DAILY 04/14/20 Allopurinol 300 mg PO DAILY #30 tablet 04/16/20 Colchicine [Colcrys *] 0.6 mg PO BID #10 tab 04/16/20 Ondansetron [Zofran] 4 mg PO Q6H PRN #20 tab 04/16/20 predniSONE [Prednisone*] 20 mg PO BID #10 tab 04/16/20 - Past Medical/Surgical History Diabetic: No -: Hypertension -: asthma -: GIB -: Tonsillectomy -: Hysterectomy -: Bilateral feet osteoarthritis -: cellulitis Psychosocial/ Personal History: Lives alone, retired - Family History mom -: Heart disease, Stroke dad -: Stroke - Social History Smoking Status: Current some day smoker Smoking therapy provided: No (Pt declined) Alcohol use: Yes CD- Drugs: No Caffeine use: No Place of Residence: Home Review of Systems 10-point ROS is otherwise unremarkable General: Weakness, Malaise Respiratory: SOB with Excertion Gastrointestinal: Constipation, Melena Physical Examination - Physical Exam General: Alert, In no apparent distress, Oriented x3 HEENT: Atraumatic, PERRLA, Other (MM dry, pale), EOMI, Sclerae nonicteric Neck: Supple, 2+ carotid pulse no bruit, No LAD, Without JVD or thyroid abnormality Respiratory: Clear to auscultation bilaterally, Normal air movement Cardiovascular: Regular rate/rhythm, Normal S1 S2 Capillary refill: <2 Seconds Gastrointestinal: Normal bowel sounds, No tenderness, Other (melanotic stool) Musculoskeletal: No tenderness Integumentary: No rashes Neurological: Normal speech, Normal strength at 5/5 x4 extr, Normal tone, Normal affect - Studies Laboratory Data (last 24 hrs) 07/27/21 02:42: PT 12.7 H, INR 1.10 07/27/21 02:42: WBC 3.80 L, Hgb 4.1 L*, Hct 15.5 L*, Plt Count 105 L 07/27/21 02:42: Sodium 144, Potassium 4.1, BUN 26 H, Creatinine 0.94, Glucose 113 H, Magnesium 2.3, Total Bilirubin 0.7, AST 27, ALT 18, Alkaline Phosphatase 128 H Assessment and Plan - Plan Assessment: Acute blood loss anemia secondary to suspected upper GI bleed CT findings suggestive of cirrhosis of liverno known history Asthma Hypertension Plan: Acute blood loss anemia secondary to suspected upper GI bleed: Protonix drip initiated in the emergency department hemoglobin 4. Patient will receive 4 units packed red blood cells followed by GI posttransfusion H&H. Patient is n.p.o. at this time, GI consult in place. Appreciate further input from gastroenterology. Patient reports that she had a colonoscopy approximately 1 year ago which only showed a couple of polyps. Suspect upper GI source possibly peptic ulcer versus varices, patient denies any vomiting or hematemesis, bleeding taking place over the course of last 1 month intermittently. Stable at this time. CT findings suggestive of cirrhosis of liverno known history: Discussed this with patient, patient does admit to drinking alcohol typically on the weekends usually between 1 to 3 glasses of rum. Counseled on need for close follow-up with GI and need for alcohol cessation. Asthma: Obtain and continue medication, provide as needed. Hypertension: Obtain continue home medication. DVT PPX: SCD Code status: Full code Discharge Plan: Home Plan to discharge in: Greater than 2 days - Advance Directives Does patient have a Living Will: Yes Does patient have a Durable POA for Healthcare: Yes - Code Status/Comfort Care Code Status Assessed: Yes (FC) Critical Care: No Time Spent Managing Pts Care (In Minutes): 55
[2021-07-27 05:38] LABS: Anisocytosis 2+; Blood Morphology Comment NOTED (NOT SEEN); Hypochromasia 3+; Platelet Estimate ADEQ; Polychromasia 1+
--- NOTE | 2021-07-27 06:27 | P.PN ---
Subjective Date of Service: 07/27/21 Primary Care Provider: Dr. Nevarez Chief Complaint: UGIB Subjective: Other (Overall stable.) Physical Examination - Studies Laboratory Data (last 24 hrs) 07/27/21 02:42: PT 12.7 H, INR 1.10 07/27/21 02:42: WBC 3.80 L, Hgb 4.1 L*, Hct 15.5 L*, Plt Count 105 L 07/27/21 02:42: Sodium 144, Potassium 4.1, BUN 26 H, Creatinine 0.94, Glucose 113 H, Magnesium 2.3, Total Bilirubin 0.7, AST 27, ALT 18, Alkaline Phosphatase 128 H Assessment & Plan Discharge Plan: Home Plan to discharge in: 72 Hours Physician Review Additional Text: COVID: CT Head: COMPARISON: None. FINDINGS: Multiple transaxial tomograms of the brain were obtained from the base of the skull to the vertex without contrast. 2-D multiplanar reformats and the coronal and sagittal plane were performed and reviewed. This exam was performed according to our departmental dose-optimization protocol, which includes automated exposure control, adjustment of the mA and/or kV according to patient size and/or use of iterative reconstruction technique. Brain parenchyma demonstrate mild prominence of the sulci and gyri are corresponding to mild cerebral and cerebellar atrophy. There is minimal periventricular white matter changes of microvascular ischemia. There is no midline shift and/or mass effect. There is no evidence for acute intracranial hemorrhage. Lateral ventricles and cisterns displace normal appearance. No intra or extra axial fluid collections were seen. The calvarium is intact with no evidence for fracture. The visualized portions of the paranasal sinuses and orbits demonstrate to be clear. IMPRESSION: Brain atrophy with periventricular matter changes of microvascular ischemia noted. No acute intracranial hemorrhage noted CT Ab/Pelvis: COMPARISON: None. TECHNIQUE: Contrast-enhanced images of the abdomen and pelvis were performed utilizing 5 mm slice thickness at 5 mm interval reconstruction from the lung bases to the ischial tuberosities after the administration of IV contrast. In addition multiplanar reformats in the coronal and sagittal plane were obtained and reviewed.This exam was performed according to our departmental dose-optimization protocol, which includes automated exposure control, adjustment of the mA and/or kV according to patient size and/or use of iterative reconstruction technique. FINDINGS: The lung bases demonstrate to be clear. There is small trace of subcapsular hepatic fluid. There is nodular surface of the liver with increased size and hypertrophy of the caudate lobe corresponding to changes of cirrhosis. There is slight prominence of the spleen. There are no significant varicose veins within the splenic hilum/or gastroesophageal junction. The gallbladder, pancreas and adrenal glands demonstrate to be unremarkable, no focal lesions are noted. The kidneys demonstrate normal uptake of contrast media. No evidence for nephrolithiasis and/or hydronephrosis. There are several bilateral renal cysts, the largest one parapelvic right lower pole measuring 3.4 x 2.4 cm on axial image 42 Grossly the unopacified stomach, small bowel and large bowel demonstrate to be within normal limits. There is no evidence for bowel dilatation/or free air. There is diverticulosis within the sigmoid colon. The appendix was not visualized. The urinary bladder demonstrate to be unremarkable. The uterus is absent. The aorta demonstrate minimal atherosclerotic disease at the aortic bifurcation. There is no retroperitoneal lymphadenopathy The bone windows demonstrate degenerative changes throughout the lumbar spine with anterior spondylosis. IMPRESSION: Cirrhotic liver with small trace of subcapsular hepatic fluid. Mild splenomegaly. Bilateral renal cysts. Sigmoid diverticulosis without evidence of acute diverticulitis. Status post hysterectomy. CXR: COMPARISON: 2020 FINDINGS: The lungs appear clear of acute infiltrate. The heart is mildly enlarged IMPRESSION: No acute abnormalities displayed Venous doppler: COMPARISON: None. FINDINGS: Left common femoral, superficial femoral, popliteal and posterior tibial veins are compressible and demonstrate augmentation. Doppler demonstrates good flow. 1.5 centimeter ivory cyst 4.1 centimeter cystic mass is present within the mid left thigh IMPRESSION: No evidence of deep venous thrombosis involving the left lower extremity. A 1.5 centimeter Ivory cyst 4.1 centimeter cystic mass within the mid left thigh. Follow-up ultrasound in 1 month is recommended to assess stability/resolution Physical exam: General: Alert, In no apparent distress, Oriented x3 HEENT: Atraumatic, PERRLA, Other (MM dry, pale), EOMI, Sclerae nonicteric Neck: Supple, 2+ carotid pulse no bruit, No LAD, Without JVD or thyroid abnormality Respiratory: Clear to auscultation bilaterally, Normal air movement Cardiovascular: Regular rate/rhythm, Normal S1 S2 Capillary refill: <2 Seconds Gastrointestinal: Normal bowel sounds, No tenderness, Other (melanotic stool) Musculoskeletal: No tenderness Integumentary: No rashes. 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 Patient will receive 4 units of packed red blood cells. Will check hemoglobin after transfusion. Continue IV Protonix drip. Case discussed at length with GI. GI plans for EGD likely tomorrow as the patient will need to have her hemoglobin improved before intervention. We will continue to monitor closely. Await further recommendations from GI. Continue IV fluids. Continue to monitor and assess. CT findings suggestive of cirrhosis of liverno known history: CT shows evidence of cirrhotic liver. Patient admits to alcohol use. Will need to teach on alcohol cessation. Await findings from EGD. Patient may have gastric varices. Patient reports of EGD and colonoscopy in the past showing polyps only. Asthma: Need to obtain and verify home medication. Will provide medication as needed. Maintain oxygen above 93%. Hypertension: Obtain and restart medication. Hold blood pressure medication at this time. Will monitor and adjust medication appropriately. 4.1 cm cystic mass to the mid left thigh: No evidence of DVT noted on venous Doppler. Doppler confirmed cystic mass. Recommend outpatient surgery evaluation as an outpatient to further address. 1.5 cm Ivory's cyst: This can be further evaluated as an outpatient with orthopedics. DVT PPX: SCD Code status: Full code Discharge Plan: Home at discharge ome Time Spent Managing Pts Care (In Minutes): 55
--- NOTE | 2021-07-27 08:06 | RAD REPORT ---
EXAM DESCRIPTION: Deisy Single View07/27/2021 2:19 am CLINICAL HISTORY: cough COMPARISON: 2019 FINDINGS: The lungs appear clear of acute infiltrate. The heart is mildly enlarged IMPRESSION: No acute abnormalities displayed
[2021-07-27] MEDS ORDERED: ONDANSETRON 4 MG/2 ML VIAL IV PRN (08:39)
[2021-07-27] MEDS: PANTOPRAZOLE INJ 80 MG in NA CHLORIDE 0.9% 250 ML IV SCH ×2 (09:00→18:07)
[2021-07-27] MEDS: D5 0.45 NS 1,000 ML IV SCH ×2 (10:01→18:39)
[2021-07-27] MEDS ORDERED: PNEUMOCOCCAL VACCINE 0.5 ML IMVAC ONE (12:00)
[2021-07-27] MEDS ORDERED: INFLUENZA VACCINE (for 6+ mo) 0.5 ML DOSE IMVAC ONE (12:00)
--- NOTE | 2021-07-27 12:43 | RAD REPORT ---
EXAM DESCRIPTION: USExtremity Venous Uni Ltd07/27/2021 11:51 am CLINICAL HISTORY: left leg pain and swelling. COMPARISON: None. FINDINGS: Left common femoral, superficial femoral, popliteal and posterior tibial veins are compre ssible and demonstrate augmentation. Doppler demonstrates good flow. 1.5 centimeter ivory cyst 4.1 centimeter cystic mass is present within the mid left thigh IMPRESSION: No evidence of deep venous thrombosis involving the left lower extremity. A 1.5 centimeter Ivory cyst 4.1 centimeter cystic mass within the mid left thigh. Follow-up ultrasound in 1 month is recommended to assess stability/resolution
--- NOTE | 2021-07-27 13:33 | RAD REPORT ---
EXAM DESCRIPTION: CT - Head Brain Wo Cont - 07/27/2021 6:47 am CLINICAL HISTORY: 75 years, Female, Dizziness;Weakness COMPARISON: None.. FINDINGS: Multiple transaxial tomograms of the brain were obtained from the base of the skull to the vertex without contrast. 2-D multiplanar reformats and the coronal and sagittal plane were performed and reviewed. This exam was performed according to our departmental dose-optimization protocol, which includes auto mated exposure control, adjustment of the mA and/or kV according to patient size and/or use of iterat lois reconstruction technique. Brain parenchyma demonstrate mild prominence of the sulci and gyri are corresponding to mild cerebral and cerebellar atrophy. There is minimal periventricular white matter changes of microvascular ische vanita. There is no midline shift and/or mass effect. There is no evidence for acute intracranial hemorr ezra. Lateral ventricles and cisterns displace normal appearance. No intra or extra axial fluid c ollections were seen. The calvarium is intact with no evidence for fracture. The visualized portions of the paranasal sinuses and orbits demonstrate to be clear. IMPRESSION: BRAIN ATROPHY WITH PERIVENTRICULAR MATTER CHANGES OF MICROVASCULAR ISCHEMIA. NO ACUTE INTRACRANIAL HEMORRHAGE. Electronically signed by: Ayad Rob MD 07/27/2021 3:49 AM RECORD RETRIEVAL SPECIALIST Due to temporary technical issues with the PACS/Fluency reporting system, reports are being signed by the in house radiologist without review as a courtesy to ensure prompt reporting. The interpreting r adiologist is fully responsible for the content of the report.
--- NOTE | 2021-07-27 13:35 | RAD REPORT ---
EXAM DESCRIPTION: CT - Abdomen Pelvis W Contrast - 07/27/2021 6:47 am CLINICAL HISTORY: 75 years, Female, GI BLEED COMPARISON: None. TECHNIQUE: Contrast-enhanced images of the abdomen and pelvis were performed utilizing 5 mm slice th ickness at 5 mm interval reconstruction from the lung bases to the ischial tuberosities after the adm inistration of IV contrast. In addition multiplanar reformats in the coronal and sagittal plane were obtained and reviewed. This exam was performed according to our departmental dose-optimization protocol, which includes auto mated exposure control, adjustment of the mA and/or kV according to patient size and/or use of iterat lois reconstruction technique. FINDINGS: The lung bases demonstrate to be clear. There is small trace of subcapsular hepatic fluid. There is nodular surface of the liver with increas ed size and hypertrophy of the caudate lobe corresponding to changes of cirrhosis. There is slight pr ominence of the spleen. There are no significant varicose veins within the splenic hilum/or gastroeso phageal junction. The gallbladder, pancreas and adrenal glands demonstrate to be unremarkable, no focal lesions are not ed. The kidneys demonstrate normal uptake of contrast media. No evidence for nephrolithiasis and/or hydro nephrosis. There are several bilateral renal cysts, the largest one parapelvic right lower pole measu ring 3.4 x 2.4 cm on axial image 42 Grossly the unopacified stomach, small bowel and large bowel demonstrate to be within normal limits. There is no evidence for bowel dilatation/or free air. There is diverticulosis within the sigmoid c olon. The appendix was not visualized. The urinary bladder demonstrate to be unremarkable. The uterus is absent. The aorta demonstrate m inimal atherosclerotic disease at the aortic bifurcation. There is no retroperitoneal lymphadenopat hy The bone windows demonstrate degenerative changes throughout the lumbar spine with anterior spondylos is. IMPRESSION: Cirrhotic liver with small trace of subcapsular hepatic fluid. Mild splenomegaly. Bilateral renal cysts. Sigmoid diverticulosis without evidence of acute diverticulitis. Status post hysterectomy. Electronically signed by: Ayad Rob MD 07/27/2021 3:48 AM PUNCH BOX TENDER Due to temporary technical issues with the PACS/Fluency reporting system, reports are being signed by the in house radiologist without review as a courtesy to ensure prompt reporting. The interpreting r adiologist is fully responsible for the content of the report.
[2021-07-27] MEDS ORDERED: IPRATROPIUM BROM 0.5MG/2.5ML NEB PRN (14:36)
[2021-07-27] MEDS ORDERED: ALBUTEROL 2.5 MG/3 ML NEB SOL NEB PRN (14:36)
[2021-07-27] MEDS: guaiFENesin 100 MG/5 ML UCUP PO PRN (20:43)
[2021-07-27] MEDS: TIZANIDINE 4 MG TABLET PO PRN (20:43)
[2021-07-27] MEDS: ADVAIR IH SCH (20:45)
[2021-07-27] MEDS ORDERED: DULERA 100/5 (MOMETASONE/FORMOTEROL) INHALER IH SCH (21:00)
[2021-07-27 22:08] LABS: Absolute Lymphocytes (CBC) 0.6 K/uL (0.7-4.9); Basophils % 0.9 % (0-1.3); Hematocrit 23.5 % (36.0-45.0); Lymphocytes % 19.5 % (15.3-44.8); MPV 8.3 fL (7.6-11.3); RBC Red Blood Cell Count 3.45 M/uL (3.86-4.86)
[2021-07-28] MEDS: D5 0.45 NS 1,000 ML IV SCH ×4 (04:49→20:44)
[2021-07-28 04:51] LABS: Albumin 2.9 g/dL (3.4-5.0); Bilirubin Total 1.5 mg/dL (0.2-1.0); Magnesium 2.1 mg/dL (1.8-2.4); Protein, Total 6.1 g/dL (6.4-8.2); Thyroid Stimulating Hormone 0.712 uIU/mL (0.360-3.740)
[2021-07-28] MEDS: PANTOPRAZOLE INJ 80 MG in NA CHLORIDE 0.9% 250 ML IV SCH ×3 (04:51→19:00)
[2021-07-28 04:59] LABS: Absolute Lymphocytes (CBC) 0.7 K/uL (0.7-4.9); Hematocrit 28.9 % (36.0-45.0); Lymphocytes % 20.4 % (15.3-44.8); MPV 8.7 fL (7.6-11.3); RBC Red Blood Cell Count 4.06 M/uL (3.86-4.86)
--- NOTE | 2021-07-28 05:50 | P.PN ---
Subjective Date of Service: 07/28/21 Primary Care Provider: Dr. Nevarez Chief Complaint: UGIB Subjective: Improving, Doing well Physical Examination - Vital Signs Temperature: 97.4 F Blood Pressure: 132/61 Pulse: 80 Respirations: 18 Pulse Ox (%): 98 Assessment & Plan Discharge Plan: Home Plan to discharge in: 48 Hours Physician Review Additional Text: COVID: CT Head: COMPARISON: None. FINDINGS: Multiple transaxial tomograms of the brain were obtained from the base of the skull to the vertex without contrast. 2-D multiplanar reformats and the coronal and sagittal plane were performed and reviewed. This exam was performed according to our departmental dose-optimization protocol, which includes automated exposure control, adjustment of the mA and/or kV according to patient size and/or use of iterative reconstruction technique. Brain parenchyma demonstrate mild prominence of the sulci and gyri are corresponding to mild cerebral and cerebellar atrophy. There is minimal periventricular white matter changes of microvascular ischemia. There is no midline shift and/or mass effect. There is no evidence for acute intracranial hemorrhage. Lateral ventricles and cisterns displace normal appearance. No intra or extra axial fluid collections were seen. The calvarium is intact with no evidence for fracture. The visualized portions of the paranasal sinuses and orbits demonstrate to be clear. IMPRESSION: Brain atrophy with periventricular matter changes of microvascular ischemia noted. No acute intracranial hemorrhage noted CT Ab/Pelvis: COMPARISON: None. TECHNIQUE: Contrast-enhanced images of the abdomen and pelvis were performed utilizing 5 mm slice thickness at 5 mm interval reconstruction from the lung bases to the ischial tuberosities after the administration of IV contrast. In addition multiplanar reformats in the coronal and sagittal plane were obtained and reviewed.This exam was performed according to our departmental dose-optimization protocol, which includes automated exposure control, adjustment of the mA and/or kV according to patient size and/or use of iterative reconstruction technique. FINDINGS: The lung bases demonstrate to be clear. There is small trace of subcapsular hepatic fluid. There is nodular surface of the liver with increased size and hypertrophy of the caudate lobe corresponding to changes of cirrhosis. There is slight prominence of the spleen. There are no significant varicose veins within the splenic hilum/or gastroesophageal junction. The gallbladder, pancreas and adrenal glands demonstrate to be unremarkable, no focal lesions are noted. The kidneys demonstrate normal uptake of contrast media. No evidence for nephrolithiasis and/or hydronephrosis. There are several bilateral renal cysts, the largest one parapelvic right lower pole measuring 3.4 x 2.4 cm on axial image 42 Grossly the unopacified stomach, small bowel and large bowel demonstrate to be within normal limits. There is no evidence for bowel dilatation/or free air. There is diverticulosis within the sigmoid colon. The appendix was not visualized. The urinary bladder demonstrate to be unremarkable. The uterus is absent. The aorta demonstrate minimal atherosclerotic disease at the aortic bifurcation. There is no retroperitoneal lymphadenopathy The bone windows demonstrate degenerative changes throughout the lumbar spine with anterior spondylosis. IMPRESSION: Cirrhotic liver with small trace of subcapsular hepatic fluid. Mild splenomegaly. Bilateral renal cysts. Sigmoid diverticulosis without evidence of acute diverticulitis. Status post hysterectomy. CXR: COMPARISON: 2020 FINDINGS: The lungs appear clear of acute infiltrate. The heart is mildly enl arged IMPRESSION: No acute abnormalities displayed Venous doppler: COMPARISON: None. FINDINGS: Left common femoral, superficial femoral, popliteal and posterior tibial veins are compressible and demonstrate augmentation. Doppler demonstrates good flow. 1.5 centimeter ivory cyst 4.1 centimeter cystic mass is present within the mid left thigh IMPRESSION: No evidence of deep venous thrombosis involving the left lower extremity. A 1.5 centimeter Ivory cyst 4.1 centimeter cystic mass within the mid left thigh. Follow-up ultrasound in 1 month is recommended to assess stability/resolution Physical exam: General: Alert, In no apparent distress, Oriented x3 HEENT: Atraumatic, PERRLA, Other (MM dry, pale), EOMI, Sclerae nonicteric Neck: Supple, 2+ carotid pulse no bruit, No LAD, Without JVD or thyroid abnormality Respiratory: Clear to auscultation bilaterally, Normal air movement Cardiovascular: Regular rate/rhythm, Normal S1 S2 Capillary refill: <2 Seconds Gastrointestinal: Normal bowel sounds, No tenderness, Other (melanotic stool) Musculoskeletal: No tenderness Integumentary: No rashes. 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 Initial hemoglobin 4.1. Now 8.8. Platelet count stable. Patient received a total of 4 units of packed red blood cells. Continue to monitor hemoglobin. Recheck CBC later with iron and B12 studies. Maintain hemoglobin above 8.0. Patient n.p.o. for EGD today. Await findings and recommendations from GI. Patient remains on IV Protonix drip. Continue to monitor closely. CT findings suggestive of cirrhosis of liverno known history likely alcohol-rel ated: CT shows evidence of cirrhotic liver. Patient admits to alcohol use. Cessation of alcohol addressed. Patient plans to quit. Await findings on EGD. Asthma: Provide medication as needed. Overall stable. Maintain oxygen above 93% Hypertension: Blood pressure stable at this time. Obtain verify home medication. 4.1 cm cystic mass to the mid left thigh: No evidence of DVT noted on venous Doppler. Doppler confirmed cystic mass. Recommend outpatient surgery evaluation as an outpatient to further address. 1.5 cm Ivory's cyst: This can be further evaluated as an outpatient with orthopedics. DVT PPX: SCD Code status: Full code Discharge Plan: Home at discharge Time Spent Managing Pts Care (In Minutes): 55
[2021-07-28] MEDS: ADVAIR IH SCH ×2 (09:00→20:39)
[2021-07-28 10:00] VITALS: BMI 33.7
[2021-07-28] MEDS ORDERED: INFLUENZA VACCINE (for 6+ mo) 0.5 ML DOSE IMVAC ONE (12:00)
[2021-07-28] MEDS ORDERED: PNEUMOCOCCAL VACCINE 0.5 ML IMVAC ONE (12:00)
[2021-07-28 13:17] LABS: Absolute Lymphocytes (CBC) 0.6 K/uL (0.7-4.9); Basophils % 0.9 % (0-1.3); Hematocrit 30.9 % (36.0-45.0); Lymphocytes % 16.2 % (15.3-44.8); RBC Red Blood Cell Count 4.36 M/uL (3.86-4.86)
[2021-07-28 13:31] LABS: Urine Appearance CLEAR (Clear); Urine Bilirubin NEGATIVE (Negative); Urine Blood NEGATIVE (Negative); Urine Color DK YELLOW (Yellow); Urine Glucose NEGATIVE (Negative); Urine Protein NEGATIVE (Negative); Urine Urobilinogen 0.2 mg/dL (0.2-1.0); Urine pH 5.5 (5.0-7.0)
[2021-07-28 13:32] LABS: Urine Microscopic Reflex NO UMIC
[2021-07-28 13:41] LABS: Ferritin 8.8 ng/mL (8-388)
[2021-07-28] MEDS ORDERED: Ringers Lactate 1,000 ML IV ONE (13:41)
[2021-07-28] MEDS ORDERED: propofoL 200 MG/20 ML VIAL IV ONE (14:00)
[2021-07-28] MEDS ORDERED: LIDOCAINE 1% MPF 5 ML VIAL ONE (14:00)
--- NOTE | 2021-07-28 14:34 | ENDO RPT ---
[address], [address] EGD PROCEDURE REPORT EXAM DATE: 07/28/2021 PATIENT NAME: Kendal Singh MR#: [id number] BIRTHDATE: 1945 ATTENDING: Basilio [address] Dr STATUS: inpatient - [facility] ESTIMATION MANAGER: Meagan Collazo RN and Margo Esquivel INDICATIONS: The patient is a 75 yr old Female here for an EGD due to melenic bleeding, iron deficiency anemia, esophageal varices screening in cirrotic patient PROCEDURE PERFORMED: EGD with biopsy MEDICATIONS: Per Anesthesia. TOPICAL ANESTHETIC: none CONSENT: The patient understands the risks and benefits of the procedure and understands that these risks include, but are not limited to: sedation, allergic reaction, infection, perforation and/or bleeding. Alternative means of evaluation and treatment include, among others: physical exam, x-rays, and/or surgical intervention. The patient elects to proceed with this endoscopic procedure. DESCRIPTION OF PROCEDURE: During intra-op preparation period all mechanical medical equipment was checked for proper function. Hand hygiene and appropriate measures for infection prevention was taken. Procedure, possible complications, and alternatives including but not limited to the possibility of bleeding, perforation, tear, infection, sepsis, need for surgery, need for blood transfusion, and anesthesia related complications were explained to the patient. After the risks, benefits and alternatives of the procedure were thoroughly explained, Informed consent was verified, confirmed and timeout was successfully executed by the treatment team. The patient was placed in the left lateral position. The patient was anesthetized with topical anesthesia. Through the anesthetized oropharyngeal area, the scope was passed without any difficulty. The [id number] ([id number]) endoscope was introduced through the mouth and advanced to the third portion of the duodenum. Retroflexed views revealed a small hiatal hernia. The gastroscope was then slowly withdrawn and removed. A small hiatal hernia was found. Mild gastritis was found in the antrum. Multiple biopsies were obtained and sent to pathology. Small bowel biopsies obtained with history of iron deficiency anemia. ADVERSE EVENTS: There were no complications. IMPRESSIONS: 1. Small hiatal hernia 2. Mild gastritis in the antrum, s/p biopsies 3. Small bowel biopsies obtained with history of iron deficiency anemia RECOMMENDATIONS: 1. await biopsy results 2. acid suppression therapy REPEAT EXAM: Basilio Bryant Dr eSigned: Basilio Bryant Dr 07/28/2021 2:33 PM cc: Young Mcmanus CPT CODES: ICD9 CODES: PATIENT NAME: Kendal Singh MR#: [id number]
[2021-07-28 15:10] LABS: Ovalocytes SLIGHT; Teardrop Cell FEW
[2021-07-28 15:11] LABS: Platelet Estimate DECR; White Blood Cell Scan OK (OK)
[2021-07-28 15:21] LABS: Anisocytosis 3+; Blood Morphology Comment NOTED (NOT SEEN); Hypochromasia 1+; Poikilocytosis 1+; Polychromasia 1+
[2021-07-28] MEDS: guaiFENesin 100 MG/5 ML UCUP PO PRN (20:39)
[2021-07-28] MEDS: TIZANIDINE 4 MG TABLET PO PRN (20:40)
[2021-07-29 05:07] VITALS: O2SAT 95
[2021-07-29] MEDS: PANTOPRAZOLE INJ 80 MG in NA CHLORIDE 0.9% 250 ML IV SCH ×2 (05:08→21:00)
--- NOTE | 2021-07-29 05:51 | P.PN ---
Subjective Date of Service: 07/29/21 Primary Care Provider: Dr. Nevarez Chief Complaint: UGIB Subjective: Doing well Physical Examination - Vital Signs Temperature: 97.5 F Blood Pressure: 151/80 Pulse: 97 Respirations: 19 Pulse Ox (%): 95 Assessment & Plan Discharge Plan: Home Plan to discharge in: 24 Hours Physician Review Additional Text: COVID: negative CT Head: COMPARISON: None. FINDINGS: Multiple transaxial tomograms of the brain were obtained from the base of the skull to the vertex without contrast. 2-D multiplanar reformats and the coronal and sagittal plane were performed and reviewed. This exam was performed according to our departmental dose-optimization protocol, which includes automated exposure control, adjustment of the mA and/or kV according to patient size and/or use of iterative reconstruction technique. Brain parenchyma demonstrate mild prominence of the sulci and gyri are corresponding to mild cerebral and cerebellar atrophy. There is minimal periventricular white matter changes of microvascular ischemia. There is no midline shift and/or mass effect. There is no evidence for acute intracranial hemorrhage. Lateral ventricles and cisterns displace normal appearance. No intra or extra axial fluid collections were seen. The calvarium is intact with no evidence for fracture. The visualized portions of the paranasal sinuses and orbits demonstrate to be clear. IMPRESSION: Brain atrophy with periventricular matter changes of microvascular ischemia noted. No acute intracranial hemorrhage noted CT Ab/Pelvis: COMPARISON: None. TECHNIQUE: Contrast-enhanced images of the abdomen and pelvis were performed utilizing 5 mm slice thickness at 5 mm interval reconstruction from the lung bases to the ischial tuberosities after the administration of IV contrast. In addition multiplanar reformats in the coronal and sagittal plane were obtained and reviewed.This exam was performed according to our departmental dose-optimization protocol, which includes automated exposure control, adjustment of the mA and/or kV according to patient size and/or use of iterative reconstruction technique. FINDINGS: The lung bases demonstrate to be clear. There is small trace of subcapsular hepatic fluid. There is nodular surface of the liver with increased size and hypertrophy of the caudate lobe corresponding to changes of cirrhosis. There is slight prominence of the spleen. There are no significant varicose veins within the splenic hilum/or gastroesophageal junction. The gallbladder, pancreas and adrenal glands demonstrate to be unremarkable, no focal lesions are noted. The kidneys demonstrate normal uptake of contrast media. No evidence for nephrolithiasis and/or hydronephrosis. There are several bilateral renal cysts, the largest one parapelvic right lower pole measuring 3.4 x 2.4 cm on axial image 42 Grossly the unopacified stomach, small bowel and large bowel demonstrate to be within normal limits. There is no evidence for bowel dilatation/or free air. There is diverticulosis within the sigmoid colon. The appendix was not visualized. The urinary bladder demonstrate to be unremarkable. The uterus is absent. The aorta demonstrate minimal atherosclerotic disease at the aortic bifurcation. There is no retroperitoneal lymphadenopathy The bone windows demonstrate degenerative changes throughout the lumbar spine with anterior spondylosis. IMPRESSION: Cirrhotic liver with small trace of subcapsular hepatic fluid. Mild splenomegaly. Bilateral renal cysts. Sigmoid diverticulosis without evidence of acute diverticulitis. Status post hysterectomy. CXR: COMPARISON: 2020 FINDINGS: The lungs appear clear of acute infiltrate. The heart is mildly enlarged IMPRESSION: No acute abnormalities displayed Venous doppler: COMPARISON: None. FINDINGS: Left common femoral, superficial femoral, popliteal and posterior tibial veins are compressible and demonstrate augmentation. Doppler demonstrates good flow. 1.5 centimeter ivory cyst 4.1 centimeter cystic mass is present within the mid left thigh IMPRESSION: No evidence of deep venous thrombosis involving the left lower extremity. A 1.5 centimeter Ivory cyst 4.1 centimeter cystic mass within the mid left thigh. Follow-up ultrasound in 1 month is recommended to assess stability/resolution EGD: Small hiatal hernia Mild gastritis in the antrum, status post biopsies Small bowel biopsies obtained Physical exam: General: Alert, In no apparent distress, Oriented x3 HEENT: Atraumatic, PERRLA, Other (MM dry, pale), EOMI, Sclerae nonicteric Neck: Supple, 2+ carotid pulse no bruit, No LAD, Without JVD or thyroid abnormality Respiratory: Clear to auscultation bilaterally, Normal air movement Cardiovascular: Regular rate/rhythm, Normal S1 S2 Capillary refill: <2 Seconds Gastrointestinal: Normal bowel sounds, No tenderness, Other (melanotic stool) Musculoskeletal: No tenderness Integumentary: No rashes. 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 Hemoglobin stable. Initial hemoglobin 4.1. Now 9.0. Patient has received a total of 4 units of packed red blood cells. Status post EGD. Currently on Protonix. Patient tolerating diet. If tolerating diet well today will plan for discharge. Will discuss with GI on plan of care. CT findings suggestive of cirrhosis of liverno known history likely alcohol- related: CT shows evidence of cirrhotic liver. Patient admits to alcohol use. Cessation of alcohol addressed. Patient plans to quit. Await findings on EGD. Asthma: Provide medication as needed. Overall stable. Maintain oxygen above 93% Hypertension: Blood pressure stable at this time. Obtain verify home medication. 4.1 cm cystic mass to the mid left thigh: No evidence of DVT noted on venous Doppler. Doppler confirmed cystic mass. Recommend outpatient surgery evaluation as an outpatient to further address. 1.5 cm Ivory's cyst: This can be further evaluated as an outpatient with orthopedics. DVT PPX: SCD Code status: Full code Discharge Plan: Home at discharge Time Spent Managing Pts Care (In Minutes): 55
[2021-07-29 07:08] LABS: Absolute Lymphocytes (CBC) 0.6 K/uL (0.7-4.9); Basophils % 0.6 % (0-1.3); Hematocrit 29.4 % (36.0-45.0); Lymphocytes % 18.5 % (15.3-44.8); MPV 8.3 fL (7.6-11.3); RBC Red Blood Cell Count 4.18 M/uL (3.86-4.86)
[2021-07-29 07:27] LABS: Bilirubin Total 1.4 mg/dL (0.2-1.0); Magnesium 1.9 mg/dL (1.8-2.4); Potassium 4.7 mmol/L (3.5-5.1); Protein, Total 6.2 g/dL (6.4-8.2)
[2021-07-29 07:36] LABS: Anisocytosis 3+; Blood Morphology Comment NOTED (NOT SEEN); Hypochromasia 1+; Platelet Estimate DECR; Polychromasia SLIGHT; White Blood Cell Scan OK (OK)
[2021-07-29] MEDS: ADVAIR IH SCH ×2 (09:00→21:00)
--- NOTE | 2021-07-29 10:37 | P.DS ---
Admission Date: 07/27/21 Discharge Date: 07/29/21 Primary Care Provider: Dr. Nevarez Disposition: ROUTINE DISCHARGE Discharge Condition: GOOD Reason for Admission: UGIB Consultations: GI-Dr. Bryant Procedures: COVID: negative CT Head: COMPARISON: None. FINDINGS: Multiple transaxial tomograms of the brain were obtained from the ba se of the skull to the vertex without contrast. 2-D multiplanar reformats and the coronal and sagittal plane were performed and reviewed. This exam was performed according to our departmental dose-optimization protocol, which includes automated exposure control, adjustment of the mA and/or kV according to patient size and/or use of iterative reconstruction technique. Brain parenchyma demonstrate mild prominence of the sulci and gyri are corresponding to mild cerebral and cerebellar atrophy. There is minimal periventricular white matter changes of microvascular ischemia. There is no midline shift and/or mass effect. There is no evidence for acute intracranial hemorrhage. Lateral ventricles and cisterns displace normal appearance. No intra or extra axial fluid collections were seen. The calvarium is intact with no evidence for fracture. The visualized portions of the paranasal sinuses and orbits demonstrate to be clear. IMPRESSION: Brain atrophy with periventricular matter changes of microvascular ischemia noted. No acute intracranial hemorrhage noted CT Ab/Pelvis: COMPARISON: None. TECHNIQUE: Contrast-enhanced images of the abdomen and pelvis were performed utilizing 5 mm slice thickness at 5 mm interval reconstruction from the lung bases to the ischial tuberosities after the administration of IV contrast. In addition multiplanar reformats in the coronal and sagittal plane were obtained and reviewed.This exam was performed according to our departmental dose-optimization protocol, which includes automated exposure control, adjustment of the mA and/or kV according to patient size and/or use of iterative reconstruction technique. FINDINGS: The lung bases demonstrate to be clear. There is small trace of subcapsular hepatic fluid. There is nodular surface of the liver with increased size and hypertrophy of the caudate lobe corresponding to changes of cirrhosis. There is slight prominence of the spleen. There are no significant varicose veins within the splenic hilum/or gastroesophageal junction. The gallbladder, pancreas and adrenal glands demonstrate to be unremarkable, no focal lesions are noted. The kidneys demonstrate normal uptake of contrast media. No evidence for nephrolithiasis and/or hydronephrosis. There are several bilateral renal cysts, the largest one parapelvic right lower pole measuring 3.4 x 2.4 cm on axial imag e 42 Grossly the unopacified stomach, small bowel and large bowel demonstrate to be within normal limits. There is no evidence for bowel dilatation/or free air. There is diverticulosis within the sigmoid colon. The appendix was not visualized. The urinary bladder demonstrate to be unremarkable. The uterus is absent. The aorta demonstrate minimal atherosclerotic disease at the aortic bifurcation. There is no retroperitoneal lymphadenopathy The bone windows demonstrate degenerative changes throughout the lumbar spine with anterior spondylosis. IMPRESSION: Cirrhotic liver with small trace of subcapsular hepatic fluid. Mild splenomegaly. Bilateral renal cysts. Sigmoid diverticulosis without evidence of acute diverticulitis. Status post hysterectomy. CXR: COMPARISON: 2020 FINDINGS: The lungs appear clear of acute infiltrate. The heart is mildly enlarged IMPRESSION: No acute abnormalities displayed Venous doppler: COMPARISON: None. FINDINGS: Left common femoral, superficial femoral, popliteal and posterior tibial veins are compressible and demonstrate augmentation. Doppler demonstrates good flow. 1.5 centimeter ivory cyst 4.1 centimeter cystic mass is present within the mid left thigh IMPRESSION: No evidence of deep venous thrombosis involving the left lower extremity. A 1.5 centimeter Ivory cyst 4.1 centimeter cystic mass within the mid left thigh. Follow-up ultrasound in 1 month is recommended to assess stability/resolution EGD: Small hiatal hernia Mild gastritis in the antrum, status post biopsies Small bowel biopsies obtained Medical Problem List: Acute blood loss anemia with pancytopenia secondary to upper GI bleed status post EGD showing small hiatal hernia, mild gastritis with history of iron deficiency anemia CT findings suggestive of cirrhosis of liverno known history likely alcohol- related Asthma Hypertension 4.1 cm cystic mass to the mid left thigh 1.5 cm Ivory left cyst Brief History of Present Illness: 75-year-old female with history of asthma, hypertension and previous GI bleed presents the emergency department for generalized weakness and dark stools intermittently over the course of the last 1 month. Patient reports that she gets very short of breath with exertion. Patient was evaluated in the emergency department found to be significantly anemic with hemoglobin 4.1 hematocrit 15.5 platelets 105 white blood cell 3.8 red blood cell 2.68 bicarb 20 BUN 26 GFR 58 stool melanotic, guaiac positive. CT abdomen pelvis with IV contrast demonstrates cirrhotic liver with small trace of subscapular hepatic fluid, mild splenomegaly, bilateral renal cysts and sigmoid diverticulosis without evidence of diverticulitis. Patient was admitted for treatment Hospital Course: Patient presented with acute blood loss anemia with pancytopenia secondary to upper GI bleed. Patient was admitted for further evaluation and treatment. Patient initial hemoglobin 4.1. Patient received a total of 4 units of packed red blood cells. Hemoglobin now stable at 9.0. Patient was also seen by GI. GI recommended intervention. EGD performed showed small hiatal hernia, mild gastritis with history of iron deficiency anemia. Biopsies were obtained from the stomach and small bowel. Patient has done well post EGD. No further intervention required. At discharge patient will continue with Protonix 40 mg daily. Patient will also continue with iron supplementation 325 mg 1 pill twice daily. Recommend to recheck labCBC, CMP in 1 week to monitor progress. Recommend follow-up with PCP in 1 week to follow-up his hospitalization. Recommend follow-up with GI in 2 to 4 weeks to follow-up his hospitalization. Patient will require further work-up including colonoscopy as an outpatient with GI. CT scan revealed cirrhotic changes. Patient with history of alcohol abuse. Alcohol cessation addressed in detail. Patient plans to quit. Hepatitis panel and HIV panel obtained. This can be followed up with PCP and GI. Recommend follow-up with GI to further evaluation. Patient with asthma. Overall stable. At discharge we will continue with Advair 1 puff twice daily and albuterol 2 puffs 3 times a day as needed for shortness of breath. Patient with hypertension. Overall stable. Medications reviewed. Patient not taking any medication at this time. Blood pressures were slightly elevated. At discharge will recommend to start metoprolol 12.5 mg daily. Recommend to monitor blood pressure daily. Recommend to maintain blood pressure less than 130/80. If blood pressure remains above 140/90 medication can be further adjusted by her PCP. Recommend follow-up with her PCP to further address. Patient also found to have 4.1 cm cystic mass to the mid left thigh. Doppler study showed no DVT. Doppler confirmed cystic mass. Recommend outpatient surgery evaluation to further evaluate and address. Patient plans to see her surgeon. Patient also found to have a 1.5 cm Ivory's left cyst. Overall stable. This can be further evaluated by orthopedics as an outpatient if this persists. Vital Signs/Physical Exam: Temp Pulse Resp BP Pulse Ox 97.5 F 97 H 19 151/80 H 95 07/29/21 10:36 07/29/21 10:36 07/29/21 10:36 07/29/21 10:36 07/29/21 10:36 General: Alert, In no apparent distress, Oriented x3, Cooperative HEENT: Atraumatic Neck: Supple Respiratory: Clear to auscultation bilaterally, Normal air movement Cardiovascular: Normal pulses, Regular rate/rhythm Gastrointestinal: Normal bowel sounds, No tenderness, No masses, No rebound, No guarding Musculoskeletal: Other (Left cystic mass to the left upper thigh) Integumentary: No erythema, No warmth, No cyanosis Neurological: Normal speech, Normal strength at 5/5 x4 extr, Normal tone, Normal affect Laboratory Data at Discharge: WBC 3.10 K/uL (4.3-10.9) L 07/29/21 06:53 Hgb 9.0 g/dL (12.0-15.0) L 07/29/21 06:53 Hct 29.4 % (36.0-45.0) L 07/29/21 06:53 Plt Count 74 K/uL (152-406) L 07/29/21 06:53 PT 12.7 SECONDS (9.5-12.5) H 07/27/21 02:42 INR 1.10 07/27/21 02:42 Sodium 144 mmol/L (136-145) 07/29/21 06:53 Potassium 4.7 mmol/L (3.5-5.1) 07/29/21 06:53 BUN 14 mg/dL (7-18) 07/29/21 06:53 Creatinine 0.82 mg/dL (0.55-1.3) 07/29/21 06:53 Glucose 115 mg/dL (74-106) H 07/29/21 06:53 Magnesium 1.9 mg/dL (1.8-2.4) 07/29/21 06:53 Total Bilirubin 1.4 mg/dL (0.2-1.0) H 07/29/21 06:53 AST 23 U/L (15-37) 07/29/21 06:53 ALT 16 U/L (12-78) 07/29/21 06:53 Alkaline Phosphatase 102 U/L (45-117) 07/29/21 06:53 Triglycerides 86 mg/dL (<150) 07/28/21 03:48 Cholesterol 102 mg/dL (<200) 07/28/21 03:48 HDL Cholesterol 37 mg/dL (40-60) L 07/28/21 03:48 Cholesterol/HDL Ratio 2.76 07/28/21 03:48 Home Medications: Albuterol Inhaler [Ventolin Inhaler*] 2 puff IH QID PRN #1 07/29/21 Ferrous Sulfate [Iron] 325 mg PO BID #60 tablet 07/29/21 Fluticasone/Salmeterol [Advair 250-50 Diskus] 1 each IH BID #1 07/29/21 Metoprolol Tartrate 12.5 mg PO DAILY #30 tablet 07/29/21 Pantoprazole [Protonix Tab*] 40 mg PO DAILYAC #30 tab 07/29/21 New Medications: Fluticasone/Salmeterol [Advair 250-50 Diskus] 1 each IH BID #1 Ferrous Sulfate [Iron] 325 mg PO BID #60 tablet Metoprolol Tartrate 12.5 mg PO DAILY #30 tablet Pantoprazole [Protonix Tab*] 40 mg PO DAILYAC #30 tab Albuterol Inhaler [Ventolin Inhaler*] 2 puff IH QID PRN #1 PRN Reason: Shortness Of Breath Physician Discharge Instructions: Patient presented with acute blood loss anemia with pancytopenia secondary to upper GI bleed. Patient was admitted for further evaluation and treatment. Patient initial hemoglobin 4.1. Patient received a total of 4 units of packed red blood cells. Hemoglobin now stable at 9.0. Patient was also seen by GI. GI recommended intervention. EGD performed showed small hiatal hernia, mild gastritis with history of iron deficiency anemia. Biopsies were obtained from the stomach and small bowel. Patient has done well post EGD. No further intervention required. At discharge patient will continue with Protonix 40 mg daily. Patient will also continue with iron supplementation 325 mg 1 pill twice daily. Recommend to recheck labCBC, CMP in 1 week to monitor progress. Recommend follow-up with PCP in 1 week to follow-up his hospitalization. Recommend follow-up with GI in 2 to 4 weeks to follow-up his hospitalization. Patient will require further work-up including colonoscopy as an outpatient with GI. CT scan revealed cirrhotic changes. Patient with history of alcohol abuse. Alcohol cessation addressed in detail. Patient plans to quit. Hepatitis panel and HIV panel obtained. This can be followed up with PCP and GI. Recommend follow-up with GI to further evaluation. Patient with asthma. Overall stable. At discharge we will continue with Advair 1 puff twice daily and albuterol 2 puffs 3 times a day as needed for shortness of breath. Patient with hypertension. Overall stable. Medications reviewed. Patient not taking any medication at this time. Blood pressures were slightly elevated. At discharge will recommend to start metoprolol 12.5 mg daily. Recommend to monitor blood pressure daily. Recommend to maintain blood pressure less than 130/80. If blood pressure remains above 140/90 medication can be further adjusted by her PCP. Recommend follow-up with her PCP to further address. Patient also found to have 4.1 cm cystic mass to the mid left thigh. Doppler study showed no DVT. Doppler confirmed cystic mass. Recommend outpatient surgery evaluation to further evaluate and address. Patient plans to see her surgeon. Patient also found to have a 1.5 cm Ivory's left cyst. Overall stable. This can be further evaluated by orthopedics as an outpatient if this persists. Diet: AHA Activity: Ad serafin Followup: John Nevarez MD [Primary Care Provider] - Time spent managing pt's care (in minutes): 55
[2021-07-29] MEDS ORDERED: INFLUENZA VACCINE (for 6+ mo) 0.5 ML DOSE IMVAC ONE (12:00)
[2021-07-29 16:38] VITALS: TEMP 97.5
[2021-07-29 20:54] VITALS: BP 164/75
--- NOTE | 2021-07-29 21:21 | P.PN ---
Subjective Date of Service: 07/29/21 Primary Care Provider: Dr. Nevarez Chief Complaint: UGIB, melena, anemia Subjective: Improving (Feels much better. Tolerating diet. Wants to go home. Reports colonoscopy 1 year ago in [place], [place]. Hgb up from 4.1 to 9.0. No further melena noted. EGD yesterday revealed small hiatal hernia and mild gastritis. U/A negative.) Review of Systems 10-point ROS is otherwise unremarkable General: Weakness (Improved.) Physical Examination - Vital Signs Temperature: 97.5 F Blood Pressure: 164/75 Pulse: 99 Respirations: 16 Pulse Ox (%): 95 - Physical Exam General: Alert, In no apparent distress, Oriented x3, Cooperative HEENT: Atraumatic, Normocephalic, PERRLA, EOMI Neck: Supple Respiratory: Normal air movement Cardiovascular: Normal pulses Gastrointestinal: Soft and benign (obese), No tenderness, No rebound, No guarding Neurological: Normal speech, Normal strength at 5/5 x4 extr Assessment And Plan - Current Problems (Diagnosis) (1) Melena Current Visit: Yes Status: Acute (2) Iron deficiency anemia Current Visit: Yes Status: Acute (3) GI bleeding Current Visit: No Status: Acute - Plan REC: 1) small bowel series and pillcam 2) obtain prior colonoscopy report; if not able to obtain, repeat colonoscopy as inpatient or outpatient 3) GI clinic f/u Physician Review Additional Text: COVID: negative CT Head: COMPARISON: None. FINDINGS: Multiple transaxial tomograms of the brain were obtained from the base of the skull to the vertex without contrast. 2-D multiplanar reformats and the coronal and sagittal plane were performed and reviewed. This exam was performed according to our departmental dose-optimization protocol, which includes automated exposure control, adjustment of the mA and/or kV according to patient size and/or use of iterative reconstruction technique. Brain parenchyma demonstrate mild prominence of the sulci and gyri are corresponding to mild cerebral and cerebellar atrophy. There is minimal periventricular white matter changes of microvascular ischemia. There is no midline shift and/or mass effect. There is no evidence for acute intracranial hemorrhage. Lateral ventricles and cisterns displace normal appearance. No intra or extra axial fluid collections were seen. The calvarium is intact with no evidence for fracture. The visualized portions of the paranasal sinuses and orbits demonstrate to be clear. IMPRESSION: Brain atrophy with periventricular matter changes of microvascular ischemia noted. No acute intracranial hemorrhage noted CT Ab/Pelvis: COMPARISON: None. TECHNIQUE: Contrast-enhanced images of the abdomen and pelvis were performed utilizing 5 mm slice thickness at 5 mm interval reconstruction from the lung bases to the ischial tuberosities after the administration of IV contrast. In addition multiplanar reformats in the coronal and sagittal plane were obtained and reviewed.This exam was performed according to our departmental dose-optimization protocol, which includes automated exposure control, adjustment of the mA and/or kV according to patient size and/or use of iterative reconstruction technique. FINDINGS: The lung bases demonstrate to be clear. There is small trace of subcapsular hepatic fluid. There is nodular surface of the liver with increased size and hypertrophy of the caudate lobe corresponding to changes of cirrhosis. There is slight prominence of the spleen. There are no significant varicose veins within the splenic hilum/or gastroesophageal junction. The gallbladder, pancreas and adrenal glands demonstrate to be unremarkable, no focal lesions are noted. The kidneys demonstrate normal uptake of contrast media. No evidence for nephrolithiasis and/or hydronephrosis. There are several bilateral renal cysts, the largest one parapelvic right lower pole measuring 3.4 x 2.4 cm on axial image 42 Grossly the unopacified stomach, small bowel and large bowel demonstrate to be within normal limits. There is no evidence for bowel dilatation/or free air. There is diverticulosis within the sigmoid colon. The appendix was not visualized. The urinary bladder demonstrate to be unremarkable. The uterus is absent. The aorta demonstrate minimal atherosclerotic disease at the aortic bifurcation. There is no retroperitoneal lymphadenopathy The bone windows demonstrate degenerative changes throughout the lumbar spine with anterior spondylosis. IMPRESSION: Cirrhotic liver with small trace of subcapsular hepatic fluid. Mild splenomegaly. Bilateral renal cysts. Sigmoid diverticulosis without evidence of acute diverticulitis. Status post hysterectomy. CXR: COMPARISON: 2020 FINDINGS: The lungs appear clear of acute infiltrate. The heart is mildly enlarged IMPRESSION: No acute abnormalities displayed Venous doppler: COMPARISON: None. FINDINGS: Left common femoral, superficial femoral, popliteal and posterior tibial veins are compressible and demonstrate augmentation. Doppler demonstrates good flow. 1.5 centimeter ivory cyst 4.1 centimeter cystic mass is present within the mid left thigh IMPRESSION: No evidence of deep venous thrombosis involving the left lower extremity. A 1.5 centimeter Ivory cyst 4.1 centimeter cystic mass within the mid left thigh. Follow-up ultrasound in 1 month is recommended to assess stability/resolution EGD: Small hiatal hernia Mild gastritis in the antrum, status post biopsies Small bowel biopsies obtained Physical exam: General: Alert, In no apparent distress, Oriented x3 HEENT: Atraumatic, PERRLA, Other (MM dry, pale), EOMI, Sclerae nonicteric Neck: Supple, 2+ carotid pulse no bruit, No LAD, Without JVD or thyroid abnormality Respiratory: Clear to auscultation bilaterally, Normal air movement Cardiovascular: Regular rate/rhythm, Normal S1 S2 Capillary refill: <2 Seconds Gastrointestinal: Normal bowel sounds, No tenderness, Other (melanotic stool) Musculoskeletal: No tenderness Integumentary: No rashes. 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 Hemoglobin stable. Initial hemoglobin 4.1. Now 9.0. Patient has received a total of 4 units of packed red blood cells. Status post EGD. Currently on Protonix. Patient tolerating diet. If tolerating diet well today will plan for discharge. Will discuss with GI on plan of care. CT findings suggestive of cirrhosis of liverno known history likely alcohol- related: CT shows evidence of cirrhotic liver. Patient admits to alcohol use. Cessation of alcohol addressed. Patient plans to quit. Await findings on EGD. Asthma: Provide medication as needed. Overall stable. Maintain oxygen above 93% Hypertension: Blood pressure stable at this time. Obtain verify home medication. 4.1 cm cystic mass to the mid left thigh: No evidence of DVT noted on venous Doppler. Doppler confirmed cystic mass. Recommend outpatient surgery evaluation as an outpatient to further address. 1.5 cm Ivory's cyst: This can be further evaluated as an outpatient with orthopedics. DVT PPX: SCD Code status: Full code Discharge Plan: Home at discharge
[2021-07-30] MEDS ORDERED: PANTOPRAZOLE 40MG TABLET PO SCH (06:30)
[2021-08-01 15:17] LABS: HIV AG/AB 4TH GEN Non-reactive (Non-reactive)
== END 2021-07-29 21:15 | disposition home or self-care (01) | DRG 378 ==
LOC: ER 20:58 → ERHOLD 07-27 04:39 → 2ND 07-27 07:03
PROVIDERS: ADMIT Family Medicine; ATTEND Family Medicine
PROC: 30233N1 Transfusion of Nonautologous Red Blood Cells into Peripheral Vein, Percutaneous Approach (ICD-10-PCS; 2021-07-27)
PROC: 0DB78ZX Excision of Stomach, Pylorus, Via Natural or Artificial Opening Endoscopic, Diagnostic (ICD-10-PCS; principal; 2021-07-28 13:15)
DX: K29.71 Gastritis, unspecified, with bleeding (principal); D62 Acute posthemorrhagic anemia; D61.818 Other pancytopenia; K44.9 Diaphragmatic hernia without obstruction or gangrene; J45.909 Unspecified asthma, uncomplicated; K74.60 Unspecified cirrhosis of liver; M71.20 Synovial cyst of popliteal space [Baker], unspecified knee; D50.9 Iron deficiency anemia, unspecified; I10 Essential (primary) hypertension; F17.200 Nicotine dependence, unspecified, uncomplicated; Z88.5 Allergy status to narcotic agent; Z79.52 Long term (current) use of systemic steroids; Z79.899 Other long term (current) drug therapy; Z90.710 Acquired absence of both cervix and uterus; Z60.2 Problems related to living alone; Z72.89 Other problems related to lifestyle; Z20.822 Contact with and (suspected) exposure to COVID-19; Z23 Encounter for immunization
CPT/HCPCS: 0241U; 36415; 70450; 71045; 74177; 80048; 80053; 80061; 80074; 80076; 81003; 81015; 82565; 82607; 82728; 83540; 83735; 83880; 84439; 84443; 84466; 84484; 85025; 85610; 86850; 86900; 86901; 87389; 88305; 88312; 90471; 90732; 93005; 93971; 96374; 99285; C9113; J2704; J7050; J7120; J7799; P9016; Q2035; Q9967